=== PATIENT | female | born 1930 | race Caucasian/White ===

== ENCOUNTER 2019-01-21 10:22 | Outpatient (CLI) | payer MEDICARE ==
--- NOTE | 2019-01-21 11:37 | RAD ---
2 VIEWS LUMBAR SPINE: Date: 01/21/19 HISTORY: Follow-up fracture. COMPARISON: None. FINDINGS: Mild to moderate chronic compression fracture at L1. There are five lumbar-type vertebral bodies. The re appears to be significant degenerative disc disease at L2-L3, L3-L4, and L4-L5, with loss of disc space height and osteophyte formation. There is mild bone demineralization. There is leftward curvature of the upper lumbar spine. IMPRESSION: Compression deformity at L1. POS: RENÉ
== END 2019-01-21 10:23 | disposition home or self-care (01) ==
LOC: TBSIIMAG 10:22
PROVIDERS: ATTEND Neurological Surgery
DX: S32.019D Unspecified fracture of first lumbar vertebra, subsequent encounter for fracture with routine healing (principal)
CPT/HCPCS: 72100

== ENCOUNTER 2019-01-24 11:48 | Inpatient (IN) | payer MEDICARE ==
--- NOTE | 2019-01-24 12:21 | RAD ---
FPortable chest radiograph: 01/24/2019 COMPARISON: None HISTORY:Shortness of breath FINDINGS: Prominent dense opacity in the right base consistent with right middle lobe consolidation/c ollapse and moderate/large right pleural effusion. Probable small volume left pleural effusion. Quest ionable nodule or focal area of vascular prominence in left suprahilar region measuring 1.2 cm, not o ptimally assessed on portable imaging. No pneumothorax. IMPRESSION: Prominent pleural and parenchymal opacity in the right hemithorax suggesting prominent ri ght pleural effusion with nonspecific consolidation/collapse of right middle and right lower lobes. S mall volume left pleural effusion. Findings may be on the basis of pulmonary edema, infectious pneumo nitis, and/or aspiration. Possible 1.2 cm nodule in left suprahilar region. Recommend follow-up PA and lateral imaging of the chest following treatment to reevaluate all above f indings.
[2019-01-24 12:28] LABS: #Monocytes 0.8 thou/uL (0.11-0.59); #Neutrophils 3.7 thou/uL (1.40-6.50); %Basophils 0.8 % (0.0-1.0); %Eosinophils 0.5 % (0.0-10.0); %Monocytes 13.9 % (0.0-10.0); %Neutrophils 66.8 % (42.0-75.0); Mean Corpuscular HGB CONC 30.3 g/dL (32.0-36.0); Mean Corpuscular Hemoglobin 35.1 pg (27.0-31.0); Mean Platelet Volume 7.9 fL (7.4-10.4); Platelet Count 145 thou/uL (130-400); RBC Distribution Width 15.6 % (11.5-14.5); Red Blood Cell (RBC) Count 2.86 mill/uL (4.20-5.40); White Blood Cell (WBC) Count 5.5 thou/uL (4.8-10.8)
[2019-01-24 12:33] LABS: Actual Bicarbonate (HCO3a) 26.4 mEq/L (22-28); Analyzer IN Cardio ER; Base Excess (BEa) 1.3 mEq/L (-2.0 to +3.0); CO2 Tension 43.9 mmHg (35.0-45.0); Calcium, Ionized 1.15 mmol/L (1.12-1.30); Carboxyhemoglobin (COHb) 0.3 gm% (0.0-3.0); Hemoglobin (Hb) 10.1 g/dL (12.0-16.0); O2 Tension (PaO2) 135.2 mmHg (> 60.0)
[2019-01-24 12:35] LABS: ALV-art Gradient 9.565 (0-20); Puncture Site RB
[2019-01-24] MEDS ORDERED: Azithromycin 500 MG VIAL ONE (12:38)
[2019-01-24] MEDS ORDERED: cefTRIAXone\\ROCEPHIN 2 GM VIAL ONE (12:38)
[2019-01-24 12:50] LABS: ALT (SGPT) 27 U/L (8-55); AST (SGOT) 38 U/L (5-34); Albumin 3.8 g/dL (3.4-4.8); Alkaline Phosphatase 124 U/L (40-150); Anion Gap 11 mmol/L (10-20); BUN (Urea Nitrogen) 27 mg/dL (9.8-20.1); Bilirubin, Total 0.6 mg/dL (0.2-1.2); Calc. Creatinine Clearance 0 mL/min (70-130); Carbon Dioxide 28 mmol/L (23-31); Chloride 107 mmol/L (98-107); Estimated GFR-MDRD 30; Globulin 3.8 g/dL (2.4-3.5); Glucose 110 mg/dL (83-110); Protein, Total 7.6 g/dL (6.0-8.3); Sodium 142 mmol/L (136-145)
[2019-01-24 13:50] LABS: Bilirubin Negative (Negative); Blood, Urine Negative (Negative); Clarity CLEAR (Clear); Glucose, Urine (Dipstick) Negative (Negative); Leukocyte Negative (Negative); Nitrite Negative (Negative); Protein, Urine (Dipstick) Trace mg/dL (Neg-Trace); Urobilinogen 0.2 mg/dL (0.2-1.0); pH, Urine 5.5 (5.0-9.0)
[2019-01-24] MEDS ORDERED: Furosemide 40 MG/4 ML VIAL ONE (14:11)
[2019-01-24] MEDS ORDERED: Acetaminophen 325 MG TAB PO PRN (14:14)
[2019-01-24] MEDS ORDERED: Heparin 1,000 UNITS/ML VIAL ONE (15:47)
--- NOTE | 2019-01-24 15:53 | CT ---
FCT thorax noncontrast: 01/24/2019 HISTORY: 88-year-old female with chest pain and dyspnea. Abnormal breath sounds. COMPARISON: None FINDINGS: There is a right pleural effusion that occupies approximately 60% volume of the right hemithoracic ca vity. There is almost total atelectasis of the right lower lobe, and severe partial atelectasis of ri ght middle lobe. There is a small contralateral left pleural effusion. Left upper lobe is clear. Mild subsegmental atelectasis in the left lower lobe which is otherwise clear. Minimal groundglass densit ies in right upper lobe. Ectasia and tortuosity of thoracic aorta. Cardiomegaly with four-chamber dil ation. Small to moderate-sized pericardial effusion. No pneumothorax. IMPRESSION: 1. Large right pleural effusion. 2. Associated severe atelectasis of right lower lobe and right middle lobe. 3. Small left pleural effusion. 4. Cardiomegaly with four-chamber dilation. 5. Small to moderate-sized pericardial effusion.
[2019-01-24] MEDS ORDERED: hydrALAZINE 20 MG/ML VIAL SLOW IVP SCH (16:30)
[2019-01-24] MEDS ORDERED: Carvedilol 25 MG TAB PO SCH (17:00)
[2019-01-24] MEDS ORDERED: Furosemide 40 MG/4 ML VIAL SLOW IVP SCH (17:00)
[2019-01-24] MEDS: Carvedilol 25 MG TAB PO SCH (17:21)
[2019-01-24 17:40] LABS: INR-International Normal Ratio 1.3; PTT 33.3 SEC (22.9-36.1); Prothrombin Time 16.3 SEC (12.0-14.7)
[2019-01-24] MEDS ORDERED: Piperacillin/Tazobactam 3.375 GM VIAL ONE (17:40)
[2019-01-24] MEDS: Piperacillin/Tazobactam 3.375 GM in Sodium Chloride 0.9% 100 ML IVPB SCH ×2 (18:01→23:34)
[2019-01-24 21:39] VITALS: BMI 27.8
[2019-01-24] MEDS: Heparin 5,000 UNITS/ML VIAL SC SCH ×2 (23:36)
--- NOTE | 2019-01-25 00:24 | HP ---
CHIEF COMPLAINT: Shortness of breath. HISTORY OF PRESENT ILLNESS: The patient is an 88-year-old female who resides in an assisted living, who with past medical history of some sort of heart failure, atrial fibrillation, currently only on aspirin, GI bleed, history of L1 fracture, who presents to the hospital with shortness of breath. The patient's daughter who is at the bedside states that the patient was living alone in [place], [place]. However, she was admitted to [facility] for an L1 fracture. She was seen by Neurosurgery, no intervention was done. The patient at this time went to senior care facility and then was transferred to an assisted living in [place], [place]. The patient's family stated that last week she noticed her mother was more short of breath, however, not physically she had to talk to her over the phone. When the patient's daughter came to take her mother for lunch today, she noted that the patient was very dyspneic at rest. The patient denies any fevers or chills or any cough; however, she does state that she has been short of breath. The patient also states that she has been compliant with her medications. The patient denies any orthopnea or PND. ED COURSE: The patient was found to be hypoxic in distress. At this time, the patient was put initially on a non-rebreather, was transitioned to nasal cannula. She was given a breathing treatment and some IV Lasix. PAST MEDICAL HISTORY: 1. She has a history of anemia. 2. Atrial fibrillation, on aspirin. 3. CKD. 4. History of superficial blood clot, not on any anticoagulation. 5. L1 fracture, which is stable. The patient followed up with Neurosurgery last week and she was taken off the brace. 6. She also has a history of CHF, unknown type. ALLERGIES: SHE HAS NO KNOWN DRUG ALLERGIES. CURRENT MEDICATIONS: I have asked the family to bring in her medications. There are no records of her medications. PAST SURGICAL HISTORY: She has had a hysterectomy and a vein ablation. FAMILY HISTORY: No history of heart disease or cancer. SOCIAL HISTORY: She denies any drug use, alcohol use, or smoking history. REVIEW OF SYSTEMS: All negative except for the ones mentioned above in HPI. PHYSICAL EXAMINATION: VITAL SIGNS: Temperature of 97.9, respirations were 32, 115 heart rate. She was 86% on room air. Her blood pressure was 179/122. GENERAL: She is awake, alert, and oriented x3, does appear in minimal distress. HEENT: Normocephalic, atraumatic. No lymphadenopathy noted. Pupils are equal reactive to light. The patient does appear a little pale. CV: S1 and S2 present. Irregularly irregular. Mild tachycardia. LUNGS: She has crackles to bilateral lower lung bases. ABDOMEN: Soft and nontender. Bowel sounds present x2. EXTREMITIES: She does have +2 lower extremity edema. She does have PADMA stockings on. However, she does have edema all the way up to her thigh area. NEUROVASCULAR: No focal deficits noted. SKIN: No cuts, lesions, or bruises noted. LABORATORY RESULTS: As of the following; her WBCs of 5.5, hemoglobin of 10, hematocrit of 33.1, platelets of 145. Chemistry; sodium of 142, potassium of 4.0, BUN of 27, creatinine 1.64. Her BNP was 2026. Troponin x1 was negative. She did have an initial chest x-ray which indicated right pleural effusion. I went ahead and did a CT of her chest without contrast to better evaluate her chest x-ray, it indicated a large right pleural effusion and atelectasis to her right lower and right middle lobe. No pneumonia was noted and she also had a small to moderate pericardial effusion. ASSESSMENT AND PLAN: The patient is an 88-year-old female who presents to the hospital with complaints of shortness of breath. 1. Acute hypoxia, most likely secondary to heart failure versus pneumonia. The patient's BNP is elevated. I do not have previous records in the computer. The patient sees Cardiology in [place]. I have obtained a number. I will get records. She was supposed to see Dr. Escalante as an outpatient basis, but has not established care yet. I will start her on some Lasix on a daily basis. Also, I will add some possible calcium channel lemuel since she is in mild atrial fibrillation with rapid ventricular rate. I will also go ahead and consult Cardiology. I will get an echocardiogram on this lady. The patient denies any chest pain or chest pressure. 2. Also, I will cover her with antibiotics. We will just start her on some Zosyn. I will not add MRSA coverage. Since, I think, she does not have pneumonia. I will also check a TSH on her. 3. History of atrial fibrillation with mild rapid ventricular response. We will go ahead and add some calcium channel lemuel to better control her blood pressure and her heart rate. She is not a candidate for anticoagulation given her past bleed and she has also had peptic ulcers, so family stated that she was not a candidate for anticoagulation per her property consultant. 4. Chronic kidney disease. I do not know her baseline. We will continue to monitor. 5. Recent L1 fracture. According to the family, it is stable and she is okay to take off the brace. This is per Dr. Doe whom she saw last week. 6. Deep venous thrombosis prophylaxis. We will put the patient on sequential compression devices. Job ID: [id number]
[2019-01-25 05:31] LABS: Anion Gap 7 mmol/L (10-20); BUN (Urea Nitrogen) 27 mg/dL (9.8-20.1); Calc. Creatinine Clearance 26 mL/min (70-130); Calcium 8.4 mg/dL (7.8-10.44); Carbon Dioxide 32 mmol/L (23-31); Chloride 107 mmol/L (98-107); Estimated GFR-MDRD 33; Glucose 82 mg/dL (83-110); Potassium 3.4 mmol/L (3.5-5.1); Sodium 143 mmol/L (136-145)
[2019-01-25] MEDS: Piperacillin/Tazobactam 3.375 GM in Sodium Chloride 0.9% 100 ML IVPB SCH ×2 (05:33→11:09)
[2019-01-25 05:34] LABS: #Eosinphils 0.1 thou/uL (0.0-0.7); #Lymphocytes 0.8 thou/uL (1.20-3.40); #Monocytes 0.5 thou/uL (0.11-0.59); #Neutrophils 3.3 thou/uL (1.40-6.50); %Basophils 0.3 % (0.0-1.0); %Eosinophils 1.7 % (0.0-10.0); %Lymphocytes 16.8 % (21.0-51.0); %Monocytes 11.6 % (0.0-10.0); %Neutrophils 69.6 % (42.0-75.0); Anisocytosis SLIGHT = 6-15 cells (100X) (0-5/hpf); Hemoglobin 8.3 g/dL (12.0-16.0); Hypochromia SLIGHT = 6-15 cells (100X) (0-5/hpf); Lymphocytes 12 % (21-51); MDiff Complete? YES; Macrocytosis SLIGHT = 6-15 cells (100X) (0-5/hpf); Mean Corpuscular HGB CONC 31.9 g/dL (32.0-36.0); Mean Corpuscular Hemoglobin 36.5 pg (27.0-31.0); Mean Platelet Volume 8.3 fL (7.4-10.4); Monocytes 4 % (0-10); Neutrophil 84 % (42-75); Platelet Count 102 thou/uL (130-400); Platelet Morphology Comment Appears Decreased; RBC Distribution Width 15.1 % (11.5-14.5); Red Blood Cell (RBC) Count 2.26 mill/uL (4.20-5.40); White Blood Cell (WBC) Count 4.7 thou/uL (4.8-10.8)
[2019-01-25] MEDS: Carvedilol 25 MG TAB PO SCH (08:13)
[2019-01-25] MEDS: Heparin 5,000 UNITS/ML VIAL SC SCH ×3 (08:14→20:41)
[2019-01-25] MEDS ORDERED: Vancomycin HCl 1.25 GM in Sodium Chloride 0.9% 250 ML 250 ML IVPB SCH (09:00)
[2019-01-25] MEDS ORDERED: Furosemide 40 MG/4 ML VIAL SLOW IVP SCH (09:00)
[2019-01-25] MEDS ORDERED: Aspirin 81 mg Enteric Coated Tablet PO SCH (11:30)
[2019-01-25] MEDS ORDERED: cefTRIAXone\\ROCEPHIN 1 GM in Sodium Chloride 0.9% 100 ML IVPB SCH (12:00)
[2019-01-25] MEDS ORDERED: Azithromycin 500 MG in Sodium Chloride 0.9% 250 ML 250 ML IVPB SCH (13:00)
--- NOTE | 2019-01-25 15:44 | PDOC.PN ---
- Subjective Encounter Start Date: 01/25/19 Encounter Start Time: 10:30 Subjective: pt up in bed still appear sob, she is confused and was not aware where -: she was - Objective Resuscitation Status - Order Detail: 01/24/19 14:14 Resuscitation Status Routine Resuscitation Status: FULL: Full Resuscitation Vital Signs & Weight: Vital Signs (12 hours) Temp Pulse Resp BP Pulse Ox 01/25/19 15:10 98.8 F 63 16 113/65 98 01/25/19 11:05 97.4 F L 71 16 101/57 L 98 01/25/19 08:10 98.4 F 93 17 163/82 H 99 01/25/19 03:49 97.5 F L 86 18 147/85 H 100 Weight Weight 144 lb 3.2 oz I&O: 01/24/19 01/25/19 01/26/19 06:59 06:59 06:59 Intake Total 90 Output Total 800 Balance -710 Result Diagrams: 01/25/19 04:29 01/25/19 04:29 Phys Exam - Physical Examination Neck: no nodes, no JVD, supple, full ROM decreased breath sound to right lung, mild wheezing Cardiovascular: RRR, no significant murmur, no rub, gallop, irregular Gastrointestinal: soft, non-tender, no distention, positive bowel sounds Dx/Plan (1) SOB (shortness of breath) Code(s): R06.02 - SHORTNESS OF BREATH Status: Acute (2) Pleural effusion, right Code(s): J90 - PLEURAL EFFUSION, NOT ELSEWHERE CLASSIFIED Status: Acute (3) CHF (congestive heart failure) Code(s): I50.9 - HEART FAILURE, UNSPECIFIED Status: Acute (4) GI bleed Code(s): K92.2 - GASTROINTESTINAL HEMORRHAGE, UNSPECIFIED Status: Acute - Plan pt hh is low will edwinior, per daughter she has had low hh due to gi -: bleed. she is on asa for afib. will start her bb but decrease her dose. -: echo ordered. she most likely will need thoracentesis. will continue lasix -: for now. Daughter called left message. records requested. -: will get abg * . Review of Systems - Review of Systems Respiratory: Shortness of Breath Cardiovascular: negative: chest pain, palpitations, orthopnea, paroxysmal nocturnal dyspnea, edema, light headedness, other Gastrointestinal: negative: Nausea, Vomiting, Abdominal Pain, Diarrhea, Constipation, Melena, Hematochezia, Other - Medications/Allergies Allergies/Adverse Reactions: Allergies Allergy/AdvReac Type Severity Reaction Status Date / Time No Known Drug Allergies Allergy Unverified 01/24/19 14:25 Medications: Current Medications Acetaminophen (Tylenol) 650 mg PO Q4H PRN PRN Reason: Headache/Fever/Mild Pain (1-3) Aspirin (Ecotrin) 81 mg PO QAM [facility] Furosemide (Lasix) 40 mg SLOW IVP DAILY [facility] Last Admin: 01/25/19 08:13 Dose: 40 mg Heparin Sodium (Porcine) (Heparin) 5,000 units SC TID [facility] Last Admin: 01/25/19 15:12 Dose: 5,000 units Levothyroxine Sodium (Synthroid) 75 mcg PO DAILY [facility] Metoprolol Succinate (Toprol Xl) 25 mg PO BID [facility] Non-Formulary Medication (Ranitidine Hcl [Ranitidine Hcl]) 150 mg PO BID [facility]
[2019-01-25 16:26] LABS: Actual Bicarbonate (HCO3a) 31.2 mEq/L (22-28); Analyzer IN Cardio OR; Base Excess (BEa) 6.2 mEq/L (-2.0 to +3.0); CO2 Tension 48.1 mmHg (35.0-45.0); Calcium, Ionized 1.14 mmol/L (1.12-1.30); Carboxyhemoglobin (COHb) 0.5 gm% (0.0-3.0); Hemoglobin (Hb) 8.7 g/dL (12.0-16.0); O2 Tension (PaO2) 107.3 mmHg (> 60.0); Potassium - ABG Lab 3.41 mmol/L (3.70-5.30); Puncture Site LR; pH, Arterial 7.43 (7.35-7.45)
[2019-01-25] MEDS: Famotidine 20 MG TAB PO SCH (20:42)
--- NOTE | 2019-01-26 01:37 | CON ---
DATE OF CONSULTATION: HISTORY OF PRESENT ILLNESS: Sarina Willis is an 88-year-old white female with history of heart murmur and chronic atrial fibrillation. She denies any history of rheumatic fever or prolonged bed rest as a child, although she has been told that she had a heart murmur since childhood. She recently was admitted to [facility] in [place] with an L1 fracture. She went to retirement facility and is now at assisted living at the [facility]. Her daughter noted that she was increasingly short of breath. Ms. Willis is somewhat of a poor historian, but it does not sound as if she has had a cough or fever. She denies any chest discomfort. She does have some leg edema. In the emergency room, she was given furosemide 80 mg IV, azithromycin 500 mg IV, ceftriaxone 2 g IV, and DuoNeb. She was placed on oxygen initially, however, that has been weaned off. PAST MEDICAL HISTORY: Anemia, history of GI bleeding, chronic atrial fibrillation (apparently not an anticoagulation candidate due to her history of GI bleed), chronic kidney disease, recent L1 fracture, and history of congestive heart failure. MEDICATIONS: 1. Aspirin 81 q.a.m. 2. Premarin 0.3 q.a.m. 3. Furosemide 20 mg daily. 4. Levothyroxine 75 mcg daily. 5. Claritin 10 daily. 6. Metoprolol 25 b.i.d. 7. KCl 10 mEq q.a.m. 8. Ranitidine 150 b.i.d. ALLERGIES: NONE. OPERATIONS: Hysterectomy and bilateral great saphenous vein ablation. SOCIAL HISTORY: She does not smoke. She very rarely drinks. FAMILY HISTORY: Unremarkable. REVIEW OF SYSTEMS: A 10-point review of systems is unremarkable except as noted above. PHYSICAL EXAMINATION: VITAL SIGNS: Blood pressure 113/65, pulse of 63 and irregularly irregular. HEENT: PERRL. NECK: Supple. CHEST: Reveals occasional crackles. CARDIOVASCULAR: S1 and S2 normal without any S3 or S4. There is a 2/6 holosystolic murmur at the apex. Carotid upstrokes normal without bruits. ABDOMEN: Normal bowel sounds. EXTREMITIES: Revealed no clubbing, cyanosis, or edema. NEUROLOGIC: Grossly intact. SKIN: Warm and dry. DIAGNOSTIC STUDIES: 1. EKG revealed atrial fibrillation with rate of 115 per minute, left anterior fascicular block, nonspecific T-wave changes. 2. Echocardiogram revealed a small pericardial effusion, ejection fraction of 50 % to 55%, severely dilated left atrium, severely dilated right atrium, mitral annular calcification, moderate mitral regurgitation, aortic valvular sclerosis, and [id number] tricuspid regurgitation. LABORATORY DATA: Sodium 143, potassium 3.4, chloride 102, carbon dioxide 32, BUN 27, creatinine 1.51. BNP 2026.4. Troponin-I is normal. TSH is normal. Free T4 is normal. INR 1.3. Hemoglobin 8.3, hematocrit 25.9, white count 4700, platelets 102,000. IMAGING STUDIES: 1. Chest x-ray revealed right pleural effusion, small left pleural effusion. 2. Chest CT revealed a large right pleural effusion, atelectasis of the right lower lobe and right middle lobe, small left pleural effusion, cardiomegaly, [id number] sized pericardial effusion. IMPRESSION: 1. Acute on chronic diastolic heart failure. 2. Large right pleural effusion with very minimal left pleural effusion. If this does not diurese adequately, consideration may need to be given to a therapeutic and diagnostic thoracentesis. 3. Chronic atrial fibrillation, apparently not a candidate for anticoagulation with history of GI bleed. 4. History of GI bleed. 5. Chronic kidney disease. PLAN: The patient will continue to be diuresed. Kidney function should be watched very closely. She may benefit from thoracentesis. Job ID: [id number] [facility]
[2019-01-26] MEDS: Levothyroxine Sodium 75 MCG TAB PO SCH (05:30)
[2019-01-26] MEDS ORDERED: Furosemide 40 MG/4 ML VIAL SLOW IVP SCH (09:00)
[2019-01-26] MEDS ORDERED: Aspirin 81 mg Enteric Coated Tablet PO SCH ×2 (09:00)
[2019-01-26] MEDS: Famotidine 20 MG TAB PO SCH ×2 (10:53→20:15)
[2019-01-26] MEDS: Heparin 5,000 UNITS/ML VIAL SC SCH ×2 (10:54→16:56)
--- NOTE | 2019-01-26 10:55 | PQF ---
CLINICAL DOCUMENTATION IMPROVEMENT CLARIFICATION FORM: ICD-10 Updated PLEASE DO AN ADDENDUM TO THE PROGRESS NOTE WITH ANY DOCUMENTATION UPDATES OR ADDITIONS AND CARRY THROUGH TO DC SUMMARY. THANK YOU. DATE: 01/26/19 ATTN: DR. TURK Please exercise your independent, professional judgment in responding to the clarification form. Clinical indicators are provided on the bottom of this form for your review Please check appropriate box(s) to clarify if the following diagnosis has been ruled in or ruled out: "SEPSIS" [ ] Ruled in diagnosis [ ] Continue to treat [ ] Resolved [ x] Ruled out diagnosis [ ] Other diagnosis [ ] Unable to determine In addition, please specify: Present on Admission (POA): [ x ] Yes [ ] No [ ] Unable to determine For continuity of documentation, please document condition throughout progress notes and discharge summary. Thank You. CLINICAL INDICATORS - SIGNS / SYMPTOMS / LABS ER NOTE: "SEPSIS" PULSE 115 RR 32 WBC 4.7 RISKS: PLEURAL EFFUSION ADVANCED AGE TREATMENT: IV AZITHROMYCIN (ER) IV ROCEPHIN (ER) IV ZOSYN (01/24-01/25) BLOOD CULTURES CARDIAC MONITORING UA [employer] Winform Viewer (This form is maintained as a part of the permanent medical record) 2014 [employer]. All Rights Reserved [email or web address] [email or web address] Office: [phone] [facility]
[2019-01-26] MEDS ORDERED: Potassium Chloride 10 MEQ TAB PO SCH (11:00)
--- NOTE | 2019-01-26 11:04 | PQF ---
CLINICAL DOCUMENTATION IMPROVEMENT CLARIFICATION FORM: ICD-10 Updated PLEASE DO AN ADDENDUM TO THE PROGRESS NOTE WITH ANY DOCUMENTATION UPDATES OR ADDITIONS AND CARRY THROUGH TO DC SUMMARY. THANK YOU. DATE: 01/26/19 ATTN: DR. TURK Please exercise your independent, professional judgment in responding to the clarification form. Clinical indicators are provided on the bottom of this form for your review Please check appropriate box(s): [ ] Acute Respiratory Failure: [ ] with Hypoxia[ ] with Hypercapnia [x ] Acute On Chronic Respiratory Failure: [x ] with Hypoxia [ ] with Hypercapnia [ ] Acute Respiratory Failure due to: (etiology) [ ] Chronic Respiratory Failure only [ ] with Hypoxia [ ] with Hypercapnia [ ] Other diagnosis [ ] Unable to determine In addition, please specify: Present on Admission (POA): [x ] Yes [ ] No [ ] Unable to determine For continuity of documentation, please document condition throughout progress notes and discharge summary. Thank You. CLINICAL INDICATORS - SIGNS / SYMPTOMS / LABS H&P: "THE PATIENT WAS FOUND TO BE HYPOXIC IN DISTRESS" RR 32 PULSE 115 RISKS: PLEURAL EFFUSION HEART FAILURE AFIB TREATMENT: SUPPLEMENTAL OXYGEN / NONREBREATHER MASK TELEMETRY MONITORING CHEST XRAY IV LASIX (ER-PRESENT) MARLEE (ER) (This form is maintained as a part of the permanent medical record) 2014 [employer]. All Rights Reserved [employer] Winform Viewer [email or web address] [email or web address] Office: [phone] [facility]
--- NOTE | 2019-01-26 11:15 | PQF ---
CLINICAL DOCUMENTATION IMPROVEMENT CLARIFICATION FORM: ICD-10 Updated PLEASE DO AN ADDENDUM TO THE PROGRESS NOTE WITH ANY DOCUMENTATION UPDATES OR ADDITIONS AND CARRY THROUGH TO DC SUMMARY. THANK YOU. DATE: 01/26/19 ATTN: DR. TURK Please exercise your independent, professional judgment in responding to the clarification form. Clinical indicators are provided on the bottom of this form for your review Please check appropriate box(s) to clarify if the following diagnosis has been ruled in or ruled out: "PNEUMONIA" [ ] Ruled in diagnosis [ ] Continue to treat [ ] Resolved [x ] Ruled out diagnosis [ ] Other diagnosis [ ] Unable to determine In addition, please specify: Present on Admission (POA): [ x ] Yes [ ] No [ ] Unable to determine For continuity of documentation, please document condition throughout progress notes and discharge summary. Thank You. CLINICAL INDICATORS - SIGNS / SYMPTOMS / LABS ER NOTE: "PNEUMONIA" H&P: "ACUTE HYPOXIA, MOST LIKELY SECONDARY TO HEART FAILURE VERSUS PNEUMONIA" "ALSO, I WILL COVER HER WITH ANTIBIOTICS. WE WILL JUST START HER ON SOME ZOSYN. I WILL NOT ADD MRSA COVERAGE. SINCE, I THINK, SHE DOES NOT HAVE PNEUMONIA." CHEST XRAY: "PROMINENT DENSE OPACITY IN THE RIGHT BASE CONSISTENT WITH RIGHT MIDDLE LOBE CONSOLIDATION/COLLAPSE AND MODERATE/LARGE RIGHT PLEURAL EFFUSION." RISKS: ADVANCED AGE RESIDES IN ASSISTED LIVING TREATMENT: IV AZITHROMYCIN (ER) IV ROCEPHIN (ER) DUONEBS (ER) SUPPLEMENTAL OXYGEN BLOOD CULTURES CHEST XRAY (This form is maintained as a part of the permanent medical record) 2014 [employer] All Rights Reserved [email or web address] [email or web address] Office: [phone] [facility]
--- NOTE | 2019-01-26 18:26 | PDOC.PN ---
- Subjective Encounter Start Date: 01/26/19 Encounter Start Time: 10:00 Subjective: pt up in bed denies any sob but confused at times - Objective Resuscitation Status - Order Detail: 01/24/19 14:14 Resuscitation Status Routine Resuscitation Status: FULL: Full Resuscitation Vital Signs & Weight: Vital Signs (12 hours) Temp Pulse Resp BP Pulse Ox 01/26/19 16:50 98.2 F 97 20 141/71 H 99 01/26/19 08:00 97.5 F L 105 H 20 174/118 H 97 Weight Weight 140 lb 3.2 oz I&O: 01/25/19 01/26/19 01/27/19 06:59 06:59 06:59 Intake Total 90 720 Output Total 800 1650 Balance -710 -930 Result Diagrams: 01/25/19 04:29 01/25/19 04:29 Phys Exam - Physical Examination diminished breath sound to RLL Cardiovascular: RRR, no significant murmur, no rub, gallop, irregular Gastrointestinal: soft, non-tender, no distention, positive bowel sounds Dx/Plan (1) SOB (shortness of breath) Code(s): R06.02 - SHORTNESS OF BREATH Status: Acute (2) Pleural effusion, right Code(s): J90 - PLEURAL EFFUSION, NOT ELSEWHERE CLASSIFIED Status: Acute (3) CHF (congestive heart failure) Code(s): I50.9 - HEART FAILURE, UNSPECIFIED Status: Acute (4) GI bleed Code(s): K92.2 - GASTROINTESTINAL HEMORRHAGE, UNSPECIFIED Status: Acute - Plan will go for thoracentesis, daughter updated about his yest. -: will continue current meds. will send fluid for analysis -: inpatient rehab consult. no records received from her pcp/cardio -: asked social secretary to fax request again * . Review of Systems - Review of Systems Respiratory: Shortness of Breath Cardiovascular: negative: chest pain, palpitations, orthopnea, paroxysmal nocturnal dyspnea, edema, light headedness, other Gastrointestinal: negative: Nausea, Vomiting, Abdominal Pain, Diarrhea, Constipation, Melena, Hematochezia, Other Genitourinary: negative: Dysuria, Frequency, Incontinence, Hematuria, Retention , Other - Medications/Allergies Allergies/Adverse Reactions: Allergies Allergy/AdvReac Type Severity Reaction Status Date / Time No Known Drug Allergies Allergy Unverified 01/24/19 14:25 Medications: Current Medications Acetaminophen (Tylenol) 650 mg PO Q4H PRN PRN Reason: Headache/Fever/Mild Pain (1-3) [facility] Last Admin: 01/26/19 10:54 Dose: 81 mg Famotidine (Pepcid) 20 mg PO BID [facility] Last Admin: 01/26/19 10:53 Dose: 20 mg Heparin Sodium (Porcine) (Heparin) 5,000 units SC TID [facility] Last Admin: 01/26/19 16:56 Dose: Not Given Levothyroxine Sodium (Synthroid) 75 mcg PO 0600 [facility] Last Admin: 01/26/19 05:30 Dose: 75 mcg Metoprolol Succinate (Toprol Xl) 12.5 mg PO BID [facility] Last Admin: 01/26/19 10:53 Dose: 12.5 mg Potassium Chloride (Klor-Con 10) 10 meq PO [facility]
[2019-01-27] MEDS: Levothyroxine Sodium 75 MCG TAB PO SCH (05:43)
[2019-01-27 05:56] LABS: Anion Gap 11 mmol/L (10-20); BUN (Urea Nitrogen) 22 mg/dL (9.8-20.1); Calc. Creatinine Clearance 29 mL/min (70-130); Calcium 8.9 mg/dL (7.8-10.44); Carbon Dioxide 33 mmol/L (23-31); Chloride 102 mmol/L (98-107); Estimated GFR-MDRD 38; Glucose 79 mg/dL (83-110); Potassium 3.1 mmol/L (3.5-5.1); Sodium 143 mmol/L (136-145)
[2019-01-27] MEDS ORDERED: Potassium Chloride 20 MEQ TAB PO SCH (07:30)
[2019-01-27] MEDS ORDERED: Potassium Chloride 10 MEQ TAB PO SCH (08:00)
[2019-01-27] MEDS ORDERED: Metoprolol Tartrate 25 MG TAB PO SCH (09:00)
[2019-01-27] MEDS ORDERED: Sodium Bicarbonate 2.5 MEQ/5 ML VIAL ONE (09:13)
--- NOTE | 2019-01-27 10:19 | RAD ---
Exam: Upright inspiratory chest radiograph and upright expiratory chest radiograph HISTORY: Right-sided thoracentesis COMPARISON: 02/03/2019 FINDINGS: Small residual right-sided pleural effusion does remain. No definite pneumothorax. Stable cardiomegaly and chronic changes of the lung parenchyma. Stable scoliosis of the lumbar spine IMPRESSION: Interval decrease in size of a right-sided pleural effusion, compatible with recent right-sided thora centesis. No significant pneumothorax is appreciated. Transcribed Date/Time: 01/27/2019 10:35 AM
--- NOTE | 2019-01-27 10:22 | ULT ---
ULTRASOUND GUIDED THORACENTESIS: HISTORY: Right-sided pleural effusion. COMPARISON: None. FINDINGS: Successful ultrasound-guided thoracentesis. A total of 1300 mL of yellow color pleural fluid was aspi rated. No immediate or postprocedural complications. TECHNIQUE: Consent obtained to perform ultrasound-guided thoracentesis. Right-sided pleural effusion was identif ied. Skin was prepped and draped in a sterile fashion. 1% lidocaine, buffered with sodium bicarbonate was used for local anesthesia. Under ultrasound guidance, a 7 cm 5 [employer] catheter was advanced into the peritoneal space. A total of 1300 mL of yellow color ascites was aspirated. There were no i mmediate or postprocedural complications IMPRESSION: Successful ultrasound-guided thoracentesis. Post procedure upright inspiratory and expiratory chest r adiographs have been ordered. Transcribed Date/Time: 01/27/2019 10:37 AM
[2019-01-27] MEDS: Famotidine 20 MG TAB PO SCH (10:43)
[2019-01-27] MEDS: Metoprolol Tartrate 25 MG TAB PO SCH ×2 (10:43→21:42)
[2019-01-27 12:27] LABS: BF Color Yellow; Body Fluid Source Thoracentesis Fluid; Clarity Hazy (Clear); Tube # EDTA
[2019-01-27 12:32] LABS: Pleural Fluid, Amylase Less than 30 U/L (Not Available); Pleural Fluid, Glucose 89 mg/dL; Pleural Fluid, LDH 124 U/L (Not Available); Pleural Fluid, Protein 2.3 g/dL
[2019-01-27 12:33] LABS: RBC Background Count 0.006; WBC Background Count 0.01
[2019-01-27 12:34] LABS: WBC/NonHematic-Auto 267 /cumm
[2019-01-27 12:52] LABS: BF Segmented Neutrophils 9 %
[2019-01-27 12:53] LABS: Cell Count Non Hematic 73 %; Lymphocytes 18 %
[2019-01-27] MEDS ORDERED: Furosemide 20 MG/2 ML VIAL SLOW IVP SCH (15:15)
[2019-01-27] MEDS ORDERED: methylPREDNISolone Sod Succ 40 MG VIAL IVP SCH (19:00)
--- NOTE | 2019-01-27 19:00 | PDOC.PN ---
- Subjective Encounter Start Date: 01/27/19 Encounter Start Time: 11:30 Subjective: pt coughing, and appear in mild distress - Objective Resuscitation Status - Order Detail: 01/24/19 14:14 Resuscitation Status Routine Resuscitation Status: FULL: Full Resuscitation Vital Signs & Weight: Vital Signs (12 hours) Temp Pulse Resp BP Pulse Ox 01/27/19 15:25 98.5 F 102 H 14 164/91 H 98 01/27/19 14:06 89 18 94 L 01/27/19 12:45 96 01/27/19 11:48 97.4 F L 92 20 169/104 H 96 01/27/19 07:35 97.7 F 98 16 174/108 H 95 01/27/19 07:30 95 Weight Weight 133 lb 6.4 oz I&O: 01/26/19 01/27/19 01/28/19 06:59 06:59 06:59 Intake Total 720 180 480 Output Total 1650 400 450 Balance -930 -220 30 Result Diagrams: 01/25/19 04:29 01/27/19 05:16 Phys Exam - Physical Examination Neck: no nodes, no JVD, supple, full ROM rhonchi all over noted Cardiovascular: RRR, no significant murmur, no rub, gallop, irregular Gastrointestinal: soft, non-tender, no distention, positive bowel sounds Musculoskeletal: edema present Dx/Plan (1) SOB (shortness of breath) Code(s): R06.02 - SHORTNESS OF BREATH Status: Acute (2) Pleural effusion, right Code(s): J90 - PLEURAL EFFUSION, NOT ELSEWHERE CLASSIFIED Status: Acute (3) CHF (congestive heart failure) Code(s): I50.9 - HEART FAILURE, UNSPECIFIED Status: Acute (4) GI bleed Code(s): K92.2 - GASTROINTESTINAL HEMORRHAGE, UNSPECIFIED Status: Acute - Plan s/p 1.3L removed post thoracentesis, pt has a small hematoma -: at the procedure site. will start pt on duonebs and give a dose of steroid -: will start pt back on lasix in am. no medical records as of yet from pcp. -: pt does have moderate to severe tricuspid regurg * . Review of Systems - Review of Systems Respiratory: Cough, Shortness of Breath Cardiovascular: negative: chest pain, palpitations, orthopnea, paroxysmal nocturnal dyspnea, edema, light headedness, other Gastrointestinal: negative: Nausea, Vomiting, Abdominal Pain, Diarrhea, Constipation, Melena, Hematochezia, Other Genitourinary: negative: Dysuria, Frequency, Incontinence, Hematuria, Retention , Other - Medications/Allergies Allergies/Adverse Reactions: Allergies Allergy/AdvReac Type Severity Reaction Status Date / Time No Known Drug Allergies Allergy Unverified 01/24/19 14:25 Medications: Current Medications Acetaminophen (Tylenol) 650 mg PO Q4H PRN PRN Reason: Headache/Fever/Mild Pain (1-3) Albuterol/Ipratropium (Duoneb) 3 ml NEB [id number] PRN PRN Reason: SOB &/or Wheezing Last Admin: 01/27/19 14:06 Dose: 3 ml Aspirin (Ecotrin) 81 mg PO QAM [facility] Last Admin: 01/26/19 10:54 Dose: 81 mg Famotidine (Pepcid) 20 mg PO DAILY [facility] Furosemide (Lasix) 20 mg SLOW IVP DAILY [facility] Heparin Sodium (Porcine) (Heparin) 5,000 units SC TID [facility] Last Admin: 01/26/19 16:56 Dose: Not Given Levothyroxine Sodium (Synthroid) 75 mcg PO 0600 [facility] Last Admin: 01/27/19 05:43 Dose: 75 mcg Methylprednisolone Sodium Succinate (Solu-Medrol) 40 mg IVP NOW [facility] Stop: 01/27/19 21:00 Metoprolol Tartrate (Lopressor) 50 mg PO BID [facility] Last Admin: 01/27/19 10:43 Dose: 50 mg Potassium Chloride (Klor-Con) 20 meq PO BID[facility] Last Admin: 01/27/19 16:52 Dose: 20 meq
[2019-01-27 19:05] LABS: BF RBC Count - Manual 175 /cumm
[2019-01-27] MEDS ORDERED: Sodium Chloride 0.9% 10 ML ONE (19:20)
[2019-01-27 20:04] LABS: Albumin 3.1 g/dL (3.4-4.8); Protein, Total 6.5 g/dL (6.0-8.3)
[2019-01-28 05:44] LABS: #Lymphocytes 0.8 thou/uL (1.20-3.40); #Monocytes 0.3 thou/uL (0.11-0.59); #Neutrophils 5.7 thou/uL (1.40-6.50); %Basophils 0.1 % (0.0-1.0); %Eosinophils 0.1 % (0.0-10.0); %Lymphocytes 11.3 % (21.0-51.0); %Monocytes 3.9 % (0.0-10.0); %Neutrophils 84.7 % (42.0-75.0); Hemoglobin 9.6 g/dL (12.0-16.0); Mean Corpuscular HGB CONC 32.2 g/dL (32.0-36.0); Mean Corpuscular Hemoglobin 36.4 pg (27.0-31.0); Mean Platelet Volume 7.6 fL (7.4-10.4); Platelet Count 150 thou/uL (130-400); RBC Distribution Width 15.2 % (11.5-14.5); Red Blood Cell (RBC) Count 2.64 mill/uL (4.20-5.40); White Blood Cell (WBC) Count 6.8 thou/uL (4.8-10.8)
[2019-01-28] MEDS: Levothyroxine Sodium 75 MCG TAB PO SCH (06:00)
[2019-01-28 06:02] LABS: Anion Gap 12 mmol/L (10-20); BUN (Urea Nitrogen) 19 mg/dL (9.8-20.1); Calc. Creatinine Clearance 31 mL/min (70-130); Calcium 8.8 mg/dL (7.8-10.44); Carbon Dioxide 28 mmol/L (23-31); Chloride 103 mmol/L (98-107); Estimated GFR-MDRD 42; Glucose 114 mg/dL (83-110); Potassium 3.8 mmol/L (3.5-5.1); Sodium 139 mmol/L (136-145)
[2019-01-28] MEDS ORDERED: Metoprolol Tartrate 25 MG TAB PO SCH (09:00)
[2019-01-28] MEDS ORDERED: Famotidine 20 MG TAB PO SCH (09:00)
[2019-01-28] MEDS ORDERED: Furosemide 20 MG/2 ML VIAL SLOW IVP SCH (09:00)
[2019-01-28] MEDS ORDERED: predniSONE 20 MG TAB PO SCH (14:45)
[2019-01-28 15:38] VITALS: BP 102/66; TEMP 97.6
--- NOTE | 2019-01-29 05:51 | DIS ---
DATE OF ADMISSION: 01/24/2019 DATE OF DISCHARGE: 01/28/2019 DISCHARGE DIAGNOSES: As of the followin. Shortness of breath, most likely secondary to right-sided pleural effusion. 2. Right-sided pleural effusion. 3. Heart failure, diastolic. 4. Gastrointestinal bleed. 5. Malnutrition. HOSPITAL COURSE: Patient is an 88-year-old female, who is pretty new to our system, who presented to the hospital with shortness of breath. Patient's daughter who is at the bedside and who is very involved in her care stated that she was recently moved from [place], [place] up here and lives in an assisted living. Patient has a history of heart disease according to the daughter and also she has atrial fibrillation, however, is not on any anticoagulation due to her previous GI bleeds. She is only currently on aspirin. Initially when patient came into the hospital, she was noted to be very short of breath at rest per the daughter. Initially in the ER, she had a chest x-ray which indicated possible pneumonia versus large right-sided effusion or atelectasis. At this time, she also was found to have small to moderate-sized pericardial effusion. She underwent a CT chest, which indicated right-sided pleural effusion, severe atelectasis and also small to moderate-sized pericardial effusion. Cardiology was consulted and she underwent an echocardiogram. The echocardiogram indicated a small trivial pericardial effusion. EF was 50% to 55%. The left atrium was severely dilated. [id number] tricuspid regurgitation. This was updated to the patient's daughter. Patient also underwent a thoracentesis on 01/27/2019, removed at 1.3 L of fluid. Per Light's criteria, her fluid was transudative. Cytology did not show any malignant cells. Patient was put on Lasix before and after. Also post-thoracentesis, she did have some vasospasms. She had some coughing and some rhonchi. At this time, she was put on low-dose steroid and also breathing treatment. She will be discharged to inpatient rehab. I have updated the daughter that patient will benefit from inpatient rehab given her multiple medical issues. While she was in the hospital, I did try getting records from Dr. Ojeda, who is a research project coordinator in [place], [place] and also Dr. Mcdonald, who is the primary care doctor. However, we did not get any records as of yet. The patient's daughter did get further records from [facility] in the [place] and also [facility] in [place], [place]. Patient today will be discharged to an inpatient rehab and I believe she will benefit from this. Also, she has not been eating very much and this is something that her daughter also has been noticing, recommended just helping her to breathe better will probably improve her appetite. However, we will continue to follow along and if she is unable to take enough calories, may be starting her on some dietary supplements would not be a bad idea. DISCHARGE MEDICATIONS: Will be; 1. Ranitidine 150 mg b.i.d. 2. Potassium 10 mEq daily. 3. Furosemide 40 mg daily. 4. DuoNeb breathing treatments q.6 hours p.r.n. 5. Metoprolol, which was titrated up by Cardiology to 75 mg b.i.d. 6. Synthroid 75 mcg daily. 7. Aspirin 81 mg daily. 8. Also, I will give her steroids only three days. She had one day which was 01/27/2019. I will give her 20 today and then 20 tomorrow. PHYSICAL EXAMINATION: VITAL SIGNS: Temperature 98.7, 88, 100% on room air, and blood pressure is 132/67. GENERAL: She is awake, alert, and oriented x3. Does not appear in distress. CV: S1, S2 present. No murmurs, rubs, or gallops. LUNGS: Diminished breath sounds on the right lower lung, however, much improved from previous examination. No wheezing or rhonchi noted. ABDOMEN: Soft and nontender. Bowel sounds are present x2. EXTREMITIES: No edema. Pedal pulses are present x2. Again, patient likes to have compression stockings on. This is per patient's daughter and helps with the fluid in her legs, especially when she is ambulating. Job ID: [id number]
[2019-01-30 12:10] LABS: Fungus Stain Final report (.)
== END 2019-01-28 19:13 | DRG 291 ==
LOC: ERS 11:48 → ERHOLD 13:53 → 2NO 20:52
PROVIDERS: ADMIT Internal Medicine; ATTEND Internal Medicine
PROC: 0W993ZZ Drainage of Right Pleural Cavity, Percutaneous Approach (ICD-10-PCS; principal; 2019-01-27)
DX: I13.0 Hypertensive heart and chronic kidney disease with heart failure and stage 1 through stage 4 chronic kidney disease, or unspecified chronic kidney disease (principal); I50.33 Acute on chronic diastolic (congestive) heart failure; J96.01 Acute respiratory failure with hypoxia; J91.8 Pleural effusion in other conditions classified elsewhere; N18.9 Chronic kidney disease, unspecified; I48.2 Chronic atrial fibrillation; D63.1 Anemia in chronic kidney disease; I07.1 Rheumatic tricuspid insufficiency; Z79.82 Long term (current) use of aspirin; Z90.710 Acquired absence of both cervix and uterus; Z79.899 Other long term (current) drug therapy
CPT/HCPCS: 36415; 71045; 71250; 72100; 76942; 80048; 80053; 81003; 82040; 82042; 82150; 82805; 82945; 83605; 83615; 83880; 84155; 84157; 84443; 84484; 85025; 85060; 85610; 85730; 87040; 87070; 87086; 87116; 87205; 87206; 87804; 88112; 88305; 89051; 93005; 93306; 93798; 94640; 96365; 96375; J0456; J0696; J1644; J1940; J2543; J2920; J7050; J7620

== ENCOUNTER 2019-02-24 14:42 | Outpatient (CLI) | payer MEDICARE ==
--- NOTE | 2019-02-24 15:43 | RAD ---
TWO VIEWS OF THE LUMBAR SPINE 02/24/19 COMPARISON: 01/21/19 HISTORY: Fall, trauma, pain, re-evaluate fracture. FINDINGS: There is an anterior wedge compression fracture at the L1 level with approximately 40% loss of verteb ral body height anteriorly. When compared to the prior examination, the degree of vertebral body heig ht loss appears stable. No additional/new fracture noted within the lumbar spine. There is levoscolio sis centered at the thoracolumbar junction, stable. No significant anterolisthesis or retrolisthesis. Mild multilevel disc space narrowing and anterior osteophyte formation noted within the imaged spine . There is mild lower lumbar spine facet hypertrophy. IMPRESSION: Stable anterior wedge compression fracture of the L1 vertebral body as above. POS: TPC
== END 2019-02-24 14:43 | disposition home or self-care (01) ==
LOC: TBSIIMAG 14:42
PROVIDERS: ATTEND Neurological Surgery
DX: S32.010D Wedge compression fracture of first lumbar vertebra, subsequent encounter for fracture with routine healing (principal)
CPT/HCPCS: 72100

== ENCOUNTER 2019-04-01 19:39 | Inpatient (IN) | payer MEDICARE ==
--- NOTE | 2019-04-01 20:21 | RAD ---
EXAM: Single view of the chest HISTORY: Sepsis; fall at home COMPARISON: 02/17/2019; chest CT 01/24/2019 FINDINGS: Single view of the chest shows an enlarged but stable cardiomediastinal silhouette. There is a moderate right subpulmonic effusion with right basilar atelectasis. Scoliosis and degenerative changes are seen in the spine. IMPRESSION: Moderate right pleural effusion with adjacent atelectasis
[2019-04-01] MEDS ORDERED: Acetaminophen 500 MG TAB ONE (20:35)
[2019-04-01 20:54] LABS: #Lymphocytes 0.7 thou/uL (1.20-3.40); #Neutrophils 6.5 thou/uL (1.40-6.50); %Basophils 0.1 % (0.0-1.0); %Eosinophils 0.1 % (0.0-10.0); %Lymphocytes 8.7 % (21.0-51.0); %Monocytes 11.7 % (0.0-10.0); %Neutrophils 79.4 % (42.0-75.0); ALT (SGPT) 25 U/L (8-55); AST (SGOT) 73 U/L (5-34); Albumin 3.5 g/dL (3.4-4.8); Alkaline Phosphatase 106 U/L (40-150); Anion Gap 15 mmol/L (10-20); BUN (Urea Nitrogen) 41 mg/dL (9.8-20.1); Bilirubin, Total 0.6 mg/dL (0.2-1.2); Calc. Creatinine Clearance 0 mL/min (70-130); Calcium 8.9 mg/dL (7.8-10.44); Carbon Dioxide 25 mmol/L (23-31); Chloride 103 mmol/L (98-107); Estimated GFR-MDRD 23; Globulin 4.7 g/dL (2.4-3.5); Glucose 106 mg/dL (83-110); Hemoglobin 12.1 g/dL (12.0-16.0); MDiff Complete? YES; Macrocytosis SLIGHT = 6-15 cells (100X) (0-5/hpf); Mean Corpuscular HGB CONC 30.6 g/dL (32.0-36.0); Mean Corpuscular Hemoglobin 35.2 pg (27.0-31.0); Mean Platelet Volume 7.3 fL (7.4-10.4); Platelet Count 158 thou/uL (130-400); Potassium 3.3 mmol/L (3.5-5.1); Protein, Total 8.2 g/dL (6.0-8.3); RBC Distribution Width 15.2 % (11.5-14.5); Red Blood Cell (RBC) Count 3.45 mill/uL (4.20-5.40); Sodium 140 mmol/L (136-145); White Blood Cell (WBC) Count 8.1 thou/uL (4.8-10.8)
[2019-04-01 21:11] LABS: CKMB 1.2 ng/mL (0-6.6)
--- NOTE | 2019-04-01 21:22 | CT ---
EXAM: CT brain without contrast HISTORY: Altered mental status and fall COMPARISON: None TECHNIQUE: Multiple contiguous axial images were obtained and a CT of the brain without contrast. FINDINGS: There are scattered hypodensities in the subcortical and periventricular white matter consi stent with small vessel ischemic disease. There is no evidence of hydrocephalus, intracranial hemorrhage, or extra-axial fluid collection. The calvarium and overlying soft tissues are unremarkable. The visualized paranasal sinuses and masto id air cells are well aerated. IMPRESSION: No evidence of acute intracranial abnormality
--- NOTE | 2019-04-01 21:26 | CT ---
EXAM: CT of the cervical spine without contrast HISTORY: Fall from wheelchair with neck pain COMPARISON: None TECHNIQUE: Multiple contiguous axial images were obtained in a CT of the cervical spine without contr ast. Sagittal and coronal reformats were performed. FINDINGS: Severe degenerative changes are seen throughout the cervical spine with intervertebral disc space narrowing and osteophyte formation. The vertebral bodies demonstrate normal height and alignment without fracture or subluxation. No prevertebral soft tissue swelling is seen. The posterior facets are well aligned. Normal alignment of the skull base with the cervical spine is seen. The cervical soft tissues are unremarkable. A pleural effusion is seen in the right apex. IMPRESSION: 1. No evidence of acute osseous abnormality of the cervical spine. 2. Right pleural effusion
--- NOTE | 2019-04-01 21:34 | CT ---
EXAM: 1. CT of the chest without contrast 2. CT of the abdomen and pelvis without contrast 3. Limited CT of the thoracic and lumbosacral spine without contrast HISTORY: Fall out of a wheelchair with chest pain, abdominal pain, and back pain. COMPARISON: None TECHNIQUE: 1. Multiple contiguous axial images were obtained in a CT the chest without contrast. Coronal reforma ts were performed. 2. Multiple contiguous axial images were obtained in a CT of the abdomen and pelvis without contrast. Coronal reformats were performed. 3. Limited CTs of the thoracic and lumbosacral spines were performed without contrast. Sagittal and c oronal re-reformats were created based off images obtained in the chest, abdomen, and pelvic CTs. FINDINGS: CT CHEST: Mediastinum: Global cardiomegaly. No hilar or mediastinal lymphadenopathy appreciated on this limited noncontrast examination. There may be a small pericardial effusion. Lungs: Consolidation is seen in the right middle lobe and left lower lobe. Pleural space: Moderate right pleural effusion with adjacent atelectasis Thoracic bones: No evidence of acute fracture. Thoracic chest wall: Unremarkable. CT ABDOMEN/PELVIS: Evaluation of the solid organs is limited without IV contrast. Peritoneum: No free air or free fluid, or stranding changes. Liver: Unremarkable. Gallbladder: Unremarkable. Adrenal glands: Unremarkable. Kidneys: Hyperdensities emanating from both kidneys measuring up to 2.0 cm in size may represent hype rdense cysts Spleen: Unremarkable. Pancreas: Unremarkable. Bowel: Scattered diverticula in the colon. The small bowel is unremarkable. Retroperitoneum: No lymphadenopathy. Atherosclerotic calcification is in the aorta. Pelvis: No focal mass or abnormality. Status post hysterectomy. Pelvic bones: No acute fracture identified. LIMITED CT OF THE THORACIC AND LUMBOSACRAL SPINE: Compression deformity of L1 vertebral body with approximately 25% height loss is seen. Degenerative c hanges are seen throughout the spine. No other fracture or subluxation is seen. No prevertebral soft tissue swelling are present. IMPRESSION: 1. No evidence of acute traumatic intrathoracic abnormality 2. No evidence of acute intra-abdominal/pelvic abnormality 3. L1 compression fracture of uncertain age. 4. Multifocal pneumonia 5. Right pleural effusion 6. Bilateral hyperdense renal cysts 7. Diverticulosis
[2019-04-01] MEDS ORDERED: Piperacillin/Tazobactam 3.375 GM VIAL ONE (22:28)
[2019-04-01 22:32] LABS: Bilirubin Negative (Negative); Blood, Urine Large (Negative); Clarity TURBID (Clear); Glucose, Urine (Dipstick) Negative (Negative); Leukocyte Negative (Negative); Nitrite Negative (Negative); Protein, Urine (Dipstick) 100 mg/dL (Neg-Trace); Specific Gravity, Urine 1.015 (1.002-1.036); Urobilinogen 0.2 mg/dL (0.2-1.0); pH, Urine 5.5 (5.0-9.0)
[2019-04-01 22:35] LABS: Hyaline Casts/LPF >50 HYALINE CAST LPF (0-3 Hyaline); Pathc Cast-AUWi Flag 16.59 (0-2.49); Yeast-AUWi Flag 47.2 (0-25.0)
[2019-04-01 22:49] LABS: Bacteria/HPF 2+ HPF (None Seen)
[2019-04-01 22:51] LABS: Crystals/HPF 2+ AMORPH URATES HPF (Negative)
[2019-04-01] MEDS ORDERED: Aspirin Chewable 81 MG TAB ONE (23:17)
[2019-04-02 00:03] LABS: CKMB 1.1 ng/mL (0-6.6)
[2019-04-02] MEDS ORDERED: Ondansetron PF 4 MG/2 ML Vial IVP PRN ×2 (01:05→12:55)
[2019-04-02] MEDS ORDERED: Sodium Chloride 0.9% 1,000 ML IV SCH (01:05)
[2019-04-02] MEDS ORDERED: Ondansetron ODT 4 MG TAB SL PRN (01:05)
[2019-04-02] MEDS ORDERED: Acetaminophen 325 MG TAB PO PRN (01:05)
[2019-04-02] MEDS: Metoprolol Tartrate 50 MG TAB PO SCH ×2 (09:36→20:47)
[2019-04-02] MEDS ORDERED: Diltiazem HCl 125 MG, Admixture Fee 1 EACH in Sodium Chloride 0.9% 100 ML IVPB SCH (12:30)
[2019-04-02] MEDS ORDERED: hydrALAZINE 20 MG/ML VIAL SLOW IVP PRN (12:55)
[2019-04-02] MEDS ORDERED: Acetaminophen 500 MG TAB PO PRN (12:55)
[2019-04-02] MEDS ORDERED: Benzonatate 100 MG CAP PO PRN (12:55)
[2019-04-02] MEDS ORDERED: Ondansetron ODT 4 MG TAB PO PRN (12:55)
[2019-04-02] MEDS: Diltiazem HCl 125 MG, Admixture Fee 1 EACH in Sodium Chloride 0.9% 100 ML IVPB SCH (12:59)
[2019-04-02] MEDS ORDERED: Potassium Chloride 10 MEQ TAB PO SCH (13:00)
[2019-04-02] MEDS ORDERED: Melatonin 3 MG TAB PO PRN (13:00)
[2019-04-02] MEDS ORDERED: Bacteriostatic Water 30 ML VIAL FS PRN (13:05)
[2019-04-02] MEDS: cefTRIAXone\\ROCEPHIN 2 GM in Sodium Chloride 0.9% 100 ML IVPB SCH (13:57)
[2019-04-02] MEDS: methylPREDNISolone Sod Succ 40 MG VIAL IVP SCH ×2 (13:57→17:38)
[2019-04-02] MEDS: Azithromycin 500 MG in Sodium Chloride 0.9% 250 ML 250 ML IVPB SCH (15:31)
--- NOTE | 2019-04-02 20:07 | HP ---
PRIMARY CARE PROVIDER: Maikol Morrissey MD CHIEF COMPLAINT: Fall and weakness. HISTORY OF PRESENT ILLNESS: This is an 89-year-old female, who presents to [facility] Emergency Department after apparently sustaining a fall at her assisted living residence. The patient was found in the bathroom by assisted living staff and the patient had complained of general weakness. The patient states she usually is ambulatory with a rolling walker or wheelchair and apparently sustained a fall in August 2018. The patient states she has had general decline over the last several months and needs assistance with most activities of daily living. The patient underwent general evaluation in the emergency room including telemetry and EKG evaluation showing atrial fibrillation with rapid ventricular response. The patient received aspirin 325 mg in addition to vancomycin, Zosyn, and 2 L of intravenous normal saline. The patient was noted with decreased heart rate after treatment with above medications, however, was transferred to the telemetry unit for further evaluation. Upon arrival to the telemetry unit, the patient was noted in atrial fibrillation with heart rates in the 150s with associated respiratory distress and hypoxia. Chest imaging in the emergency room showed bilateral pleural effusions, right greater than left, with concern for developing pneumonia. The patient was recently admitted to [facility] in January 2019 for similar presentation and was noted with the pleural effusions at that time. PAST MEDICAL HISTORY: 1. Diastolic dysfunction with preserved ejection fraction of 50% to 55%. 2. Pneumonia with effusion in January 2019. 3. History of gastrointestinal bleed. 4. Chronic atrial fibrillation with variable rate control. No anticoagulation due to history of peptic ulcers and GI bleed. 5. Deconditioning. 6. History of falls. 7. L1 compression fracture. 8. Chronic kidney disease, stage 3 to 4. PAST SURGICAL HISTORY: 1. Status post hysterectomy. 2. Status post varicose vein surgery. CURRENT MEDICATIONS: 1. Enteric-coated aspirin 81 mg p.o. daily. 2. Premarin 1.25 mg p.o. daily. 3. Levothyroxine 75 mcg p.o. daily. 4. Claritin 10 mg p.o. at bedtime. 5. Melatonin 3 mg p.o. at bedtime p.r.n. 6. Klor-Con 10 mEq p.o. q.48 hours. 7. Ranitidine 150 mg p.o. b.i.d. 8. Lasix 40 mg p.o. daily. 9. DuoNeb 3 mL nebulized q.6 hours p.r.n. 10. Lopressor 75 mg p.o. b.i.d. ALLERGIES: NO KNOWN DRUG ALLERGIES. FAMILY HISTORY: No inheritable diseases per patient report. SOCIAL HISTORY: No current alcohol, tobacco, or illicit drug use. Ambulatory with a rolling walker or wheelchair. History of falls. Resides at the [place] at [facility]. Daughter is surrogate medical decision maker. REVIEW OF SYSTEMS: CONSTITUTIONAL: Negative for weight loss or gain, ability to conduct usual activities. SKIN: Negative for rash, itching. EYES: Negative for double vision, pain. ENT/MOUTH: Negative for nose bleeding, neck stiffness, pain, tenderness. CARDIOVASCULAR: Negative for palpitations, dyspnea on exertion, orthopnea. RESPIRATORY: Negative for shortness of breath, wheezing, cough, hemoptysis, fever or night sweats. GASTROINTESTINAL: Negative for poor appetite, abdominal pain, heartburn, nausea, vomiting, constipation, or diarrhea. GENITOURINARY: Negative for urgency, frequency, dysuria, nocturia. MUSCULOSKELETAL: Negative for pain, swelling. NEUROLOGIC/PSYCHIATRIC: Negative for anxiety, depression. ALLERGY/IMMUNOLOGIC: Negative for skin rash, bleeding tendency. Otherwise negative except as stated per HPI. PHYSICAL EXAMINATION: VITAL SIGNS: On admission, blood pressure 161/96, pulse 125, respiratory rate is 18, temperature 97.8 degrees Fahrenheit, O2 saturation is 96% on 4 L/minute by nasal cannula. GENERAL APPEARANCE: This is an 89-year-old female, alert, responsive, in [id number] respiratory distress. HEENT: Pupils are equal, round, reactive to light and accommodation. Extraocular muscles are intact. No scleral icterus. No conjunctival injection. Nares patent. OP is clear of any mask in place. NECK: Supple. No cervical adenopathy. No thyromegaly. No carotid bruits. No JVD appreciated. Accessory muscle use noted in the anterior cervical region. No palpable mass. No meningeal signs noted. CHEST: Diminished breath sounds bilaterally with coarse breath sounds noted bilaterally. CARDIOVASCULAR: S1 and S2 with tachycardia. Irregular rate and rhythm noted. No murmur appreciated. ABDOMEN: Rounded, soft, nontender, and nondistended. Bowel sounds are positive in all 4 quadrants. There is no hepatosplenomegaly. No abdominal bruits. No rebound or guarding appreciated. EXTREMITIES: Warm and dry with fair turgor. Minimal edema to the mid theodore bilaterally. Pulses palpable distally at the dorsalis pedis, posterior tibial, and popliteal arteries bilaterally. Capillary refill less than 2 seconds. NEUROLOGIC: Cranial nerves 2 through 12 are grossly intact. No focal or lateralizing signs appreciated. PERTINENT LABORATORY DATA AND X-RAY FINDINGS: Sodium 140, potassium 3.3, chloride 103, CO2 of 25, BUN 41, creatinine 2.05, estimated GFR of 23, glucose 106, lactic acid level 1.5, calcium 8.9, AST 73, ALT of 25, alkaline phosphatase 106. Troponin I ranged between 0.042 to 0.066. CBC showed a white blood cell count of 8.1, hemoglobin 12, hematocrit 40, MCV 115, platelet count 158 with 79% neutrophils. Urinalysis; positive protein, large blood, 4 to 6 wbc's per high-power field, 7 to 10 squamous epithelial cells. Influenza A and B antigen dated 04/01/2019 negative. Blood cultures x2 dated 04/01/2019 negative. Urine culture dated 04/01/2019 showed no growth at 12 hours. Portable chest x-ray dated 04/01/2019 showed moderate right pleural effusion with associated atelectasis. CT of the chest, abdomen and pelvis dated 04/01/2019 showed L1 compression deformity of uncertain age. Multifocal pneumonia. Right pleural effusion. Diverticulosis without diverticulitis. CT of the brain without contrast dated 04/01/2019 showed no acute intracranial process. EKG dated 04/01/2019 by my interpretation shows atrial fibrillation with rapid ventricular response, heart rates in the 130s. Normal R-wave progression noted in the precordial leads. Left axis deviation. Incomplete right bundle-branch block pattern. ASSESSMENT AND PLAN: 1. Acute hypoxic respiratory failure. Suspect secondary to bacterial pneumonia. We will continue oxygen supplementation and maintain O2 saturation greater than or equal to 90%. Add DuoNebs q.4 hours scheduled. Solu-Medrol 40 mg IV q.6 hours. 2. Atrial fibrillation with rapid ventricular response. Initiate Cardizem 20 mg IV bolus x1 followed by 5 mg/hour. We will continue to titrate Cardizem to optimal rate control. Resume metoprolol 75 mg p.o. b.i.d. No anticoagulation due to history of gastrointestinal bleeding. Continue aspirin 81 mg daily. Consider Cardiology consultation if rate control strategy unsuccessful. 3. Bacterial pneumonia. Suspected given CT imaging findings. Continue Rocephin 2 g IV q.24 hours with additional Zithromax 500 mg IV daily. DuoNeb q.4 hours scheduled. Solu-Medrol 40 mg IV q.6 hours. Update pneumonia vaccination prior to discharge. 4. Acute on chronic kidney disease. Avoid nephrotoxic agents and limit contrast exposure. Serial creatinine monitoring. 5. Hypokalemia. Potassium chloride 40 mEq b.i.d. with repeat potassium level in the a.m. 6. Demand ischemia of the myocardium. Suspect secondary to atrial fibrillation with rapid ventricular response. See above for management. 7. Fall. General fall risk precautions. Physical Therapy evaluation for functional assessment. 8. Hypertension. Labile currently. Resume home metoprolol 75 mg b.i.d. and monitor response. 9. Prophylaxis. Sequential compression devices while in bed. Pepcid 20 mg p.o. b.i.d. Physical Therapy evaluation for functional assessment. 10. Code status is full. Surrogate medical decision maker is the patient's daughter. Job ID: [id number]
[2019-04-02] MEDS: Famotidine 20 MG TAB PO SCH (20:48)
[2019-04-02] MEDS: Loratadine 10 MG TAB PO SCH (20:48)
[2019-04-03] MEDS: methylPREDNISolone Sod Succ 40 MG VIAL IVP SCH ×4 (00:06→20:02)
[2019-04-03] MEDS: Levothyroxine Sodium 75 MCG TAB PO SCH (05:19)
[2019-04-03 07:51] LABS: Anion Gap 14 mmol/L (10-20); BUN (Urea Nitrogen) 36 mg/dL (9.8-20.1); Calc. Creatinine Clearance 21 mL/min (70-130); Calcium 8.6 mg/dL (7.8-10.44); Carbon Dioxide 22 mmol/L (23-31); Chloride 113 mmol/L (98-107); Estimated GFR-MDRD 30; Glucose 180 mg/dL (83-110); Potassium 3.2 mmol/L (3.5-5.1); Sodium 146 mmol/L (136-145)
[2019-04-03 07:54] LABS: Hemoglobin 10.9 g/dL (12.0-16.0); Mean Corpuscular HGB CONC 30.9 g/dL (32.0-36.0); Mean Corpuscular Hemoglobin 35.9 pg (27.0-31.0); Mean Platelet Volume 7.7 fL (7.4-10.4); Platelet Count 150 thou/uL (130-400); RBC Distribution Width 15.3 % (11.5-14.5); Red Blood Cell (RBC) Count 3.03 mill/uL (4.20-5.40)
[2019-04-03] MEDS: Metoprolol Tartrate 50 MG TAB PO SCH ×2 (08:03→20:02)
[2019-04-03] MEDS: Aspirin 81 mg Enteric Coated Tablet PO SCH (08:03)
[2019-04-03] MEDS: Furosemide 40 MG TAB PO SCH (08:04)
[2019-04-03 08:58] LABS: Hypochromia SLIGHT = 6-15 cells (100X) (0-5/hpf); Lymphocytes 9 % (21-51); MDiff Complete? YES; Monocytes 6 % (0-10); Neutrophil 85 % (42-75); Platelet Morphology Comment Appears Adequate; Polychromasia SLIGHT = 2-3 cells (100X) (0-2/hpf)
--- NOTE | 2019-04-03 10:28 | EKG ---
Test Reason : Blood Pressure : / mmHG Vent. Rate : 134 BPM Atrial Rate : 141 BPM P-R Int : 000 ms QRS Dur : 092 ms QT Int : 308 ms P-R-T Axes : 000 -51 127 degrees QTc Int : 459 ms Atrial fibrillation with rapid ventricular response Incomplete right bundle branch block Left anterior fascicular block Confirmed by RUBÉN SNIDER ([id number]), editor magazine JORDAN MCPHERSON ([id number]) on 04/03/2019 10:28:21 AM Referred By: DAYDAY Confirmed By:RUBÉN SNIDER
--- NOTE | 2019-04-03 11:08 | PDOC.PN ---
- Subjective Encounter Start Date: 04/03/19 Encounter Start Time: 11:06 Patient seen and examined, states she feels ok, still having some difficulty breathing, no other issues, all questions answered, no family at bedside. - Objective Resuscitation Status - Order Detail: 04/02/19 12:47 Resuscitation Status Routine Resuscitation Status: FULL: Full Resuscitation Vital Signs & Weight: Vital Signs (12 hours) Temp Pulse Resp BP Pulse Ox 04/03/19 10:20 81 24 H 04/03/19 06:58 97.7 F 108 H 18 119/76 100 04/03/19 06:51 100 04/03/19 06:50 108 H 16 04/03/19 04:00 97.5 F L 82 18 121/69 100 04/03/19 03:20 100 04/02/19 23:54 97.7 F 80 18 133/78 100 04/02/19 23:09 95 Weight Admit Weight 123 lb 8 oz Weight 123 lb 8 oz I&O: 04/02/19 04/03/19 04/04/19 06:59 06:59 06:59 Intake Total 570 Balance 570 Result Diagrams: 04/03/19 06:56 04/03/19 06:56 Phys Exam - Physical Examination Constitutional: NAD HEENT: PERRLA, moist MMs, sclera anicteric Neck: no nodes, no JVD, supple Respiratory: wheezing present no respiratory distress Cardiovascular: no rub, irregular Gastrointestinal: soft, non-tender, no distention, positive bowel sounds Musculoskeletal: pulses present, edema present (trace) Dx/Plan (1) CHF (congestive heart failure) Code(s): I50.9 - HEART FAILURE, UNSPECIFIED Status: Acute (2) Pleural effusion, right Code(s): J90 - PLEURAL EFFUSION, NOT ELSEWHERE CLASSIFIED Status: Acute (3) SOB (shortness of breath) Code(s): R06.02 - SHORTNESS OF BREATH Status: Acute - Plan * cont diuretics * O2 PRN * adjust medications * labs in AM * cont cardizem drip for now, will adjust in AM * PT
[2019-04-03] MEDS: cefTRIAXone\\ROCEPHIN 2 GM in Sodium Chloride 0.9% 100 ML IVPB SCH (13:23)
[2019-04-03] MEDS: Azithromycin 500 MG in Sodium Chloride 0.9% 250 ML 250 ML IVPB SCH (14:07)
[2019-04-03] MEDS: Diltiazem HCl 125 MG, Admixture Fee 1 EACH in Sodium Chloride 0.9% 100 ML IVPB SCH (17:09)
[2019-04-03] MEDS: Famotidine 20 MG TAB PO SCH (20:02)
[2019-04-03] MEDS: Loratadine 10 MG TAB PO SCH (20:02)
[2019-04-04 04:41] LABS: #Lymphocytes 0.6 thou/uL (1.20-3.40); #Monocytes 0.9 thou/uL (0.11-0.59); #Neutrophils 11.2 thou/uL (1.40-6.50); %Basophils 0.1 % (0.0-1.0); %Eosinophils 0.1 % (0.0-10.0); %Monocytes 7.2 % (0.0-10.0); %Neutrophils 87.7 % (42.0-75.0); Hemoglobin 10.2 g/dL (12.0-16.0); Mean Corpuscular HGB CONC 31.3 g/dL (32.0-36.0); Mean Corpuscular Hemoglobin 35.7 pg (27.0-31.0); Mean Platelet Volume 7.7 fL (7.4-10.4); Platelet Count 157 thou/uL (130-400); RBC Distribution Width 15.3 % (11.5-14.5); Red Blood Cell (RBC) Count 2.84 mill/uL (4.20-5.40); White Blood Cell (WBC) Count 12.8 thou/uL (4.8-10.8)
[2019-04-04 05:00] LABS: Anion Gap 12 mmol/L (10-20); BUN (Urea Nitrogen) 41 mg/dL (9.8-20.1); Calc. Creatinine Clearance 20 mL/min (70-130); Calcium 9.1 mg/dL (7.8-10.44); Carbon Dioxide 24 mmol/L (23-31); Chloride 110 mmol/L (98-107); Estimated GFR-MDRD 28; Glucose 159 mg/dL (83-110); Sodium 143 mmol/L (136-145)
[2019-04-04 05:02] LABS: Potassium 2.8 mmol/L (3.5-5.1)
[2019-04-04] MEDS ORDERED: Potassium Chloride 20 MEQ TAB PO SCH (05:30)
[2019-04-04] MEDS: Levothyroxine Sodium 75 MCG TAB PO SCH (05:56)
[2019-04-04] MEDS: Aspirin 81 mg Enteric Coated Tablet PO SCH (08:07)
[2019-04-04] MEDS: Furosemide 40 MG TAB PO SCH (08:07)
[2019-04-04] MEDS: methylPREDNISolone Sod Succ 40 MG VIAL IVP SCH ×2 (08:07→22:43)
[2019-04-04] MEDS: Potassium Chloride 20 MEQ TAB PO SCH ×3 (08:07→16:56)
[2019-04-04] MEDS: Metoprolol Tartrate 50 MG TAB PO SCH (08:07)
--- NOTE | 2019-04-04 11:13 | PDOC.PN ---
- Subjective Encounter Start Date: 04/04/19 Encounter Start Time: 11:10 Patient seen and examined, no new issues, all questions answered. - Objective Resuscitation Status - Order Detail: 04/02/19 12:47 Resuscitation Status Routine Resuscitation Status: FULL: Full Resuscitation Vital Signs & Weight: Vital Signs (12 hours) Temp Pulse Pulse Pulse Resp BP BP 04/04/19 10:27 91 16 04/04/19 09:33 104 H 91 189/96 H 149/84 H 04/04/19 08:05 97.9 F 104 H 18 04/04/19 07:12 108 H 18 04/04/19 03:02 97.8 F 103 H 20 04/04/19 02:59 04/03/19 23:55 109 H 04/03/19 23:12 BP Pulse Ox 04/04/19 10:27 04/04/19 09:33 04/04/19 08:05 141/78 H 93 L 04/04/19 07:12 04/04/19 03:02 135/81 98 04/04/19 02:59 99 04/03/19 23:55 123/66 04/03/19 23:12 99 Weight Admit Weight 123 lb 8 oz Weight 123 lb 8 oz Result Diagrams: 04/04/19 04:08 04/04/19 04:08 Phys Exam - Physical Examination Constitutional: NAD HEENT: PERRLA, moist MMs, sclera anicteric Neck: no nodes, no JVD, supple Respiratory: no wheezing, no rales, no rhonchi Cardiovascular: RRR, no significant murmur, no rub Gastrointestinal: soft, non-tender, no distention Musculoskeletal: pulses present, edema present (trace) Dx/Plan (1) CHF (congestive heart failure) Code(s): I50.9 - HEART FAILURE, UNSPECIFIED Status: Acute (2) Pleural effusion, right Code(s): J90 - PLEURAL EFFUSION, NOT ELSEWHERE CLASSIFIED Status: Acute (3) SOB (shortness of breath) Code(s): R06.02 - SHORTNESS OF BREATH Status: Acute - Plan * DC cardizem, increase metoprolol to 100mg po BID with hold parameters * consult renal for electrolyte issues * potassium replaced will repeat labs in AM * case and plan d/w patient at length, she understood and agreed with this plan.
[2019-04-04] MEDS: cefTRIAXone\\ROCEPHIN 2 GM in Sodium Chloride 0.9% 100 ML IVPB SCH ×2 (14:28→14:34)
[2019-04-04] MEDS: Azithromycin 500 MG in Sodium Chloride 0.9% 250 ML 250 ML IVPB SCH (15:10)
[2019-04-04 17:58] LABS: Anion Gap 17 mmol/L (10-20); BUN (Urea Nitrogen) 47 mg/dL (9.8-20.1); Calc. Creatinine Clearance 18 mL/min (70-130); Calcium 9.4 mg/dL (7.8-10.44); Carbon Dioxide 19 mmol/L (23-31); Chloride 113 mmol/L (98-107); Estimated GFR-MDRD 25; Glucose 161 mg/dL (83-110); Potassium 4.6 mmol/L (3.5-5.1); Sodium 144 mmol/L (136-145)
--- NOTE | 2019-04-04 17:58 | CON ---
DATE OF CONSULTATION: 04/04/2019 CONSULTING PHYSICIAN: Terry Loomis DO REASON FOR CONSULTATION: FABBY on CKD as well as hypokalemia. HISTORY OF PRESENT ILLNESS: An 89-year-old female with known history of hypertension; CKD, stage 3; cognitive impairment, who was admitted from assisted living after she was found on the floor. The patient who is wheelchair bound due to frequent falls reportedly has gotten weak and was subsequently found on the floor of her home and was subsequently brought to the hospital. Oral intake has been poor reportedly by the daughter. The patient is confused and was unable to provide any significant history. Above history was gleaned from review of medical record and from talking to the patient's daughter at bedside. On presentation to the ER, the patient was found to be tachycardic, and further evaluation with EKG showed atrial fibrillation with rapid ventricular response, and hence, the patient was started on Cardizem infusion. She also received 2 L of normal saline, and subsequently, was observed on the floor to be in respiratory distress, hence started on oxygen. The patient also was noted to have elevated creatinine of 2 and hypokalemia on presentation. Nephrology consult was requested to address these. Daughter reported that the patient has long-standing chronic kidney disease and used to see a assurance officer [place] before relocating over here and she is yet to establish care with any assurance officer. She also reported that the patient had intracranial bleed related to anticoagulation with Coumadin, which was followed by cognitive impairment, which progressively has gotten worse over the ages. The patient also has had several bowel motions, which was initially formed, but since today it has been watery. There has been no history of nausea or vomiting. Oral intake, however, has been poor since this hospitalization. PAST MEDICAL HISTORY: 1. Diastolic dysfunction. 2. Prior history of GI bleed. 3. Prior history of intracranial bleed. 4. Chronic anticoagulation. 5. Recurrent falls. 6. L1 compression fracture. 7. CKD, stage 3/4. 8. Pleural effusion, status post recent thoracentesis. 9. Cognitive impairment/dementia. PAST SURGICAL HISTORY: 1. Hysterectomy. 2. Varicose vein surgery. 3. Thoracentesis. FAMILY HISTORY: Noncontributory. This could not be evaluated; however, due to the patient's condition. SOCIAL HISTORY: The patient currently lives in assisted living facility. Daughter is the surrogate decision maker. There is no history of current alcohol, tobacco, or illicit drug use. ALLERGIES: NO KNOWN DRUG ALLERGIES REPORTED. MEDICATIONS: Prior to current hospital medications: 1. Aspirin 81 mg p.o. daily. 2. Premarin 1.25 mg p.o. daily. 3. Levothyroxine 75 mcg p.o. daily. 4. Loratadine 10 mg p.o. daily. 5. Melatonin 3 mg p.o. p.m. p.r.n. for insomnia. 6. Potassium chloride 10 mEq every 2 days. 7. Ranitidine 150 mg p.o. b.i.d. 8. Furosemide 40 mg p.o. daily. 9. DuoNeb 3 mL nebulization q.6 p.r.n. for shortness of breath. 10. Metoprolol 75 mg p.o. b.i.d. Current hospital medications: 1. Azithromycin 500 mg IV daily. 2. Ceftriaxone 2 g daily. 3. Cardizem infusion, however, was discontinued earlier today. 4. Methylprednisolone 40 mg IV q.12 hours. 5. Aspirin 81 mg daily. 6. Premarin 1.25 mg p.o. daily. 7. Pepcid 20 mg p.o. daily at bedtime. 8. Furosemide 40 mg p.o. daily. 9. Levothyroxine 75 mcg p.o. daily. 10. Loratadine 10 mg p.o. q.p.m. 11. Metoprolol tartrate 100 mg p.o. b.i.d. 12. Potassium chloride 40 mEq t.i.d. with meals. 13. Acetaminophen 1000 mg p.o. q.6 p.r.n. for pain. 14. Hydralazine 10 mg IV push q.4 p.r.n. for acute elevation in blood pressure. 15. Melatonin 3 mg p.o. daily at bedtime p.r.n. for insomnia. 16. Zofran 4 mg p.r.n. for nausea and vomiting. REVIEW OF SYSTEMS: This is grossly limited due to the patient's condition; however, she denied headache, chest pain, dysuria, or abdominal pain. PHYSICAL EXAMINATION: VITAL SIGNS: Current vitals showed temperature 97.5, pulse 111, respiratory rate 20, SpO2 100% on 2 L nasal cannula, and blood pressure is 155/92. GENERAL: Elderly female, in no obvious distress. Afebrile. Anicteric. Acyanotic. The patient, however, is confused. HEENT: Normocephalic and atraumatic. Pupils are reacting to light. Oral mucosa is moist. NECK: Supple. Nontender with good range of motion. No masses or lymphadenopathy appreciated. CARDIOVASCULAR: Irregular rhythm and rate. Tachycardic with normal heart sounds 1 and 2. No obvious murmur appreciated. RESPIRATORY: Fair air entry bilateral, though decreased at right base. No obvious rhonchi were appreciated. There is no use of accessory muscles appreciated. GI: Full, soft, nontender, and nondistended with normal bowel sounds. EXTREMITIES: Grossly normal looking, atraumatic, with no edema or erythema. Mild genu valgus deformity noted. NEUROLOGIC: Conscious and alert. The patient, however, is oriented only to person and place. She is clearly confused with memory lapses. Cranial nerves 2 through 12 are intact. The patient moves all extremities with symmetric power. SKIN: No obvious rash, erythema, or ecchymosis appreciated. DIAGNOSTIC DATA: LABORATORY RESULTS: CBC today showed WBC count of 12.8, hemoglobin of 10.2, MCV of 114, and platelets of 157. BMP today showed sodium 143, potassium 2.8, chloride 110, CO2 of 24, BUN 41, creatinine 1.72, glucose 159, and calcium 9.1. Magnesium is 2.1. Urinalysis performed on April 01 showed yellow turbid urine with pH of 5.5, specific gravity of 1.015, positive protein and blood, but negative glucose, ketones, nitrite, bilirubin, and leukocyte esterase. Microscopy showed 4 to 6 rbc and wbc with squamous cells 7 to 10. More than 50 hyaline casts were noted. Review of medical record here showed that creatinine has ranged from 1.2 to 1.7 since December 2018, but reached to a peak of 2.0 on presentation to this hospital on April 01. ASSESSMENT: 1. Acute kidney injury superimposed on chronic kidney disease, stage 3/4: Most likely due to hemodynamic factors related to diuretic therapy and volume depletion. The patient is said to have poor oral intake and continued to take diuretics. Creatinine was 2.01 on presentation, but that has improved to 1.7 currently. Of note, the patient had creatinine of 1.2 to 1.3 in December 2018. Baseline creatinine, however, is unknown. The patient used to see a assurance officer [place] prior to relocating to this place. 2. Hypokalemia: This is most likely related to poor oral intake as well as increased urinary losses due to diuretic therapy. Despite being on supplementation, serum potassium is still low. Serum magnesium is normal at 2.1. 3. Chronic kidney disease, stage 3/4: Etiology is unclear, but seems to be related to hypertension and old age. Chronic hemodynamic factors related to diuretic therapy and for diastolic heart failure may be contributory. 4. Anemia in chronic kidney disease. 5. Proteinuria. 6. Hypertension: Control is fair. 7. Recurrent falls. Orthostatic hypotension is a concern as well as physical deconditioning. 8. Acute encephalopathy: This is most likely metabolic from acute kidney injury, electrolyte derangement, and possibly urinary tract infection. Daughter reported that mental status has worsened and the patient is clearly confused. Baseline dementia/cognitive impairment related to intracranial bleed. PLAN: 1. I agree with repletion of serum potassium with potassium chloride. We will monitor serum levels with a view to giving further supplement to correct this. The patient having diarrhea illness will definitely worsen this. Given the patient is having diarrhea and oral intake is poor, we will hold diuretics at this time while monitoring renal function, I and O, as well as daily weights and volume status. 2. We will also get urine protein creatinine ratio as well as renal ultrasound. 3. We will try and get medical record from the former assurance officer in with a view to knowing the patient's baseline renal functions. 4. We will also get vitamin D as well as PTH. 5. We will also get iron chemistry. 6. Further recommendation to follow depending on hospital course and evaluation of other laboratory tests. Many thanks for involving us in the care of this patient. Job ID: [id number]
[2019-04-04] MEDS: Metoprolol Tartrate 100 MG TAB PO SCH (22:43)
[2019-04-04] MEDS: Famotidine 20 MG TAB PO SCH (22:43)
[2019-04-04] MEDS: Loratadine 10 MG TAB PO SCH (22:43)
--- NOTE | 2019-04-04 23:42 | ULT ---
RENAL ULTRASOUND: INDICATIONS: Chronic kidney disease. FINDINGS: The left kidney measures 8.3 cm in length. The right kidney measures 9.8 cm. Both kidneys show shameka ical thinning. Mild increased cortical echogenicity is consistent with chronic renal disease. No ev idence of hydronephrosis or mass. The bladder is mildly distended and appears unremarkable. Uretera l jets were confirmed by the technologist. IMPRESSION: Kidneys show mild cortical thinning and mild increased cortical echogenicity. POS: RENÉ
[2019-04-05 04:50] LABS: Iron 61 ug/dL (50-170); Iron Binding Capacity, Total 209 mcg/dL (265-497)
[2019-04-05 04:58] LABS: Albumin 3.4 g/dL (3.4-4.8); Anion Gap 16 mmol/L (10-20); BUN (Urea Nitrogen) 53 mg/dL (9.8-20.1); BUN/Creatinine Ratio 25.85; Calc. Creatinine Clearance 16 mL/min (70-130); Calcium 9.8 mg/dL (7.8-10.44); Carbon Dioxide 21 mmol/L (23-31); Chloride 114 mmol/L (98-107); Estimated GFR-MDRD 23; Glucose 152 mg/dL (83-110); Iron Binding Capacity, Total 213 mcg/dL (265-497); Phosphorus 3.9 mg/dL (2.3-4.7); Potassium 5.5 mmol/L (3.5-5.1); Sodium 145 mmol/L (136-145)
[2019-04-05] MEDS: Levothyroxine Sodium 75 MCG TAB PO SCH (06:03)
[2019-04-05] MEDS ORDERED: Amlodipine 5 MG TAB PO SCH (06:45)
[2019-04-05] MEDS: methylPREDNISolone Sod Succ 40 MG VIAL IVP SCH (08:38)
[2019-04-05] MEDS: Aspirin 81 mg Enteric Coated Tablet PO SCH (08:38)
[2019-04-05] MEDS: Metoprolol Tartrate 100 MG TAB PO SCH ×2 (08:38→20:08)
[2019-04-05] MEDS: Sodium Bicarbonate Tab 325 MG TAB PO SCH ×3 (08:38→20:06)
--- NOTE | 2019-04-05 12:19 | PRG ---
DATE OF SERVICE: 04/05/2019 SUBJECTIVE: The patient indicates she is feeling a little bit better. Her daughter reports that she has never seen her mother to have hospital related delirium or psychoses in the past, although she has been through previous admissions. OBJECTIVE: VITAL SIGNS: Temperature is 97.6, pulse 112, respirations 18, O2 saturations 95% on room air, and BP 138/99. GENERAL APPEARANCE: Age-appropriate female. She is in no distress. She is pleasant, but confused and slightly hyperactive. HEART: Irregular, tachycardic with 2/4 murmur at the right upper sternal border, systolic in nature. LUNGS: Clear bilaterally without significant wheezes or rales. ABDOMEN: Soft, nontender, and nondistended. Positive bowel sounds. No masses. No organomegaly. EXTREMITIES: Some chronic stasis bronzing, but no acute inflammation. IMPRESSION AND PLAN: 1. Acute hypoxic respiratory failure: The patient is no longer on supplemental oxygen. Saturating well on room air. 2. Multifocal pneumonia: Continue with Rocephin and azithromycin. She is afebrile. We will discontinue her steroids. 3. Atrial fibrillation with RVR: The patient was initially on a Cardizem drip, changed over to p.o. metoprolol 100 mg b.i.d. Continues to be somewhat tachycardic. I am going to consult Cardiology. I am discontinuing her nebulizer treatments as I believe they maybe contributory. Also discontinuing the steroids. We will check a thyroid level in the morning. 4. Renal: The patient has chronic kidney disease, stage 4. Her creatinine improved slightly after admission. It is slowly creeping back up. She is not real far off her baseline. Nephrology is following. 5. Hypothyroidism: Continuing with her levothyroxine, checking her TSH in the morning. 6. Confusion. The patient appears to have some hospital related delirium/psychoses. Discussed with the patient's daughter at length, possibly stopping the nebs and methylprednisolone maybe helpful, but likely this is largely benign in nature. Job ID: [id number]
[2019-04-05] MEDS: Azithromycin 500 MG in Sodium Chloride 0.9% 250 ML 250 ML IVPB SCH (14:33)
[2019-04-05 15:41] LABS: Creatinine, Urine 74.67 mg/dL (47-110)
[2019-04-05] MEDS: cefTRIAXone\\ROCEPHIN 2 GM in Sodium Chloride 0.9% 100 ML IVPB SCH (16:19)
[2019-04-05] MEDS: Dextrose 5 %-0.45 % NaCl 1,000 ML IV SCH (18:32)
--- NOTE | 2019-04-05 19:55 | PRG ---
DATE OF SERVICE: 04/05/2019 SUBJECTIVE: An 89-year-old female who is being seen on followup for acute kidney injury and hypokalemia. The patient with cognitive impairment, was unable to provide any significant history and there was no relative at the bedside. She however denied chest pain or any discomfort. As per nursing staff, oral intake has been poor. OBJECTIVE: VITAL SIGNS: Temperature 96.8, pulse 109, respiratory rate 16, SpO2 of 97 on room air, blood pressure 169/110. GENERAL: Elderly female, in no obvious distress. The patient is confused. HEENT: Normocephalic, atraumatic. Oral mucosa is mildly dry. CARDIOVASCULAR: Irregular rhythm and rate. Tachycardic. Normal heart sounds 1 and 2. RESPIRATORY: Fair air entry bilateral, decreased at right base posteriorly. No obvious crackle or rhonchi was appreciated. GI: Abdomen is full, soft, nontender, nondistended with normal bowel sounds. EXTREMITIES: Grossly normal looking. No edema or erythema. SKIN: Some bruises and ecchymoses noticed on the forearms bilaterally. NEUROLOGIC: The patient is awake and conversational, but confused. Moves all extremities. DIAGNOSTIC DATA: Renal function panel showed sodium 145, potassium 5.5, chloride 114, CO2 of 21, anion gap 16, BUN 53, creatinine 2.05, glucose 152, calcium 9.8, phosphorus 3.9, albumin 3.4. Vitamin D 23.2. Iron chemistry showed serum iron 61, TIBC 209, saturation 29, ferritin 1276. ASSESSMENT: 1. Acute kidney injury: Most likely related to hemodynamic factors related to volume status. The patient on presentation had creatinine of above 2, which trended down to 1.7, but went up to 2.05 today. The patient has been on diuretics. However, oral intake has been poor since admission. We will discontinue Lasix and encourage liberal oral intake. I discussed with the nursing staff to help the patient eat so that oral intake will improve. We will monitor renal function. If there is no significant improvement, we will consider cautious IV fluids given the patient has history of congestive heart failure. 2. Hyperkalemia: Potassium today is 5.5. This is over correction of hypokalemia. We will discontinue oral supplementation. Correction of metabolic acidosis with sodium bicarb will also help with this hyperkalemia. We will follow closely. 3. Hypokalemia: Repleted. Now hyperkalemic. 4. Metabolic acidosis: We will start sodium bicarbonate. 5. Hypertension: Control is suboptimal. We will start amlodipine 5 mg and monitor vitals with a view to optimize antihypertensives to get adequate BP control. 6. Chronic diastolic heart failure: The patient seems compensated at this time. 7. Dementia/cognitive impairment: Deferred to primary attending. Job ID: [id number]
[2019-04-05] MEDS: Famotidine 20 MG TAB PO SCH (20:08)
[2019-04-05] MEDS: Loratadine 10 MG TAB PO SCH (20:08)
--- NOTE | 2019-04-05 22:29 | CON ---
DATE OF CONSULTATION: HISTORY OF PRESENT ILLNESS: The patient is an 89-year-old woman with a history of chronic atrial fibrillation, who was admitted after a fall. The patient was seen a few months ago with atrial fibrillation. She was felt to be at a prohibitive risk for anticoagulation secondary to history of GI hemorrhage. The patient has otherwise no known cardiac history. Denies having any history of chest discomfort. She was admitted after she fell. She was found to have a fever and diagnosed with pneumonia. The patient has been on IV antibiotics, still had a rapid heart rate. The patient reports having palpitations. She denies having any chest discomfort. PAST MEDICAL HISTORY: 1. Atrial fibrillation. 2. Hypertension. 3. GI hemorrhage. 4. History of several falls. 5. Renal insufficiency. PAST SURGICAL HISTORY: She had hysterectomy. MEDICATIONS: See nursing list. ALLERGIES: NONE. FAMILY HISTORY: No strong family history of coronary artery disease. SOCIAL HISTORY: Nonsmoker. REVIEW OF SYSTEMS: Notable for decreased appetite, otherwise unremarkable. PHYSICAL EXAMINATION: GENERAL: Thin woman in mild distress. Blood pressure 161/96. NECK: Showed no jugular venous distention. . LUNGS: There are decreased breath sounds bilaterally. HEART: Irregular rate and rhythm. Normal S1 and S2. ABDOMEN: Nondistended. EXTREMITIES: Show trace edema. VASCULAR: Radial pulses 2+. LABORATORY DATA: White blood cell count 12.8, hemoglobin 10.2, hematocrit 32.4, platelets 157. Sodium 145, potassium 5.5, chloride 114, bicarbonate 21, BUN 53, and creatinine is 2.05. DIAGNOSTIC STUDIES: EKG revealed atrial fibrillation with nonspecific ST-T wave abnormality. IMPRESSION: 1. Pneumonia. 2. Atrial fibrillation with rapid ventricular response. 3. Hypertension. 4. History of GI hemorrhage. This patient presents with pneumonia. She has had rapid atrial fibrillation. The patient also has renal insufficiency. We would place the patient on a low dose of Cardizem. She will be continued on her metoprolol. Please call my office. We would also recommend the patient be placed on . She may need a PEG tube due to her decreased appetite. We will follow this patient with you through her hospitalization. Job ID: [id number]
[2019-04-06] MEDS: Levothyroxine Sodium 75 MCG TAB PO SCH (05:26)
[2019-04-06] MEDS ORDERED: Amlodipine 10 MG TAB PO SCH (07:45)
[2019-04-06] MEDS ORDERED: Amlodipine 5 MG TAB PO SCH (09:00)
--- NOTE | 2019-04-06 09:16 | PDOC.PN ---
- Subjective Encounter Start Date: 04/06/19 Encounter Start Time: 09:13 Still confused. Denies problems. Says she is not hungry now, but will be. - Objective Resuscitation Status - Order Detail: 04/02/19 12:47 Resuscitation Status Routine Resuscitation Status: FULL: Full Resuscitation Vital Signs & Weight: Vital Signs (12 hours) Temp Pulse Resp BP Pulse Ox 04/06/19 05:00 98 20 160/95 H 95 04/06/19 04:00 96.8 F L 91 19 175/106 H 98 04/06/19 00:00 98.2 F 106 H 20 161/102 H 95 Weight Admit Weight 123 lb 8 oz Weight 133 lb 14.4 oz I&O: 04/05/19 04/06/19 04/07/19 06:59 06:59 06:59 Intake Total 480 970 Output Total 370 590 Balance 110 380 Result Diagrams: 04/04/19 04:08 04/05/19 04:05 Phys Exam - Physical Examination Constitutional: NAD Confused. Respiratory: no wheezing, no rales, no rhonchi Cardiovascular: RRR, no rub Gr II M Gastrointestinal: soft, non-tender, no distention, positive bowel sounds Musculoskeletal: no edema Neurological: non-focal Globally confused. Skin: normal turgor Dx/Plan (1) Acute respiratory failure with hypoxia Code(s): J96.01 - ACUTE RESPIRATORY FAILURE WITH HYPOXIA Status: Acute Comment: Secondary to pneumonia and pleural effusion. Continue supplemental oxygen as needed. (2) Pneumonia Code(s): J18.9 - PNEUMONIA, UNSPECIFIED ORGANISM Status: Acute Comment: Rocephin and Azithromycin. (3) Atrial fibrillation with rapid ventricular response Code(s): I48.91 - UNSPECIFIED ATRIAL FIBRILLATION Status: Acute Comment: Persistent tachycardia. On Metoprolol. Cards consulted. Diltiazem added. Titrating dose. (4) HTN (hypertension) Code(s): I10 - ESSENTIAL (PRIMARY) HYPERTENSION Status: Acute Comment: Titrating the CCB. (5) Acute metabolic encephalopathy Code(s): G93.41 - METABOLIC ENCEPHALOPATHY Status: Acute Comment: Likely secondary to hospitalization, infection. (6) Acute on chronic renal failure Code(s): N17.9 - ACUTE KIDNEY FAILURE, UNSPECIFIED; N18.9 - CHRONIC KIDNEY DISEASE, UNSPECIFIED Status: Acute Comment: Nephrology following. Fluids. (7) Hypothyroidism Code(s): E03.9 - HYPOTHYROIDISM, UNSPECIFIED Status: Acute Comment: TSH pending (8) Pleural effusion, right Code(s): J90 - PLEURAL EFFUSION, NOT ELSEWHERE CLASSIFIED Status: Acute (9) Compression fracture of L1 lumbar vertebra Code(s): S32.010A - WEDGE COMPRESSION FRACTURE OF FIRST LUMBAR VERTEBRA, INIT Status: Acute Comment: Age undetermined - Plan * Continue titrating CCB. * Will give Lovenox and determine decision on longer term benefit v. 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 * Repeat CXR. * Labs pending. * Unclear how much she is eating. Weight indicates she is up 10 pounds. On Dextrose fluids.
[2019-04-06] MEDS ORDERED: Enoxaparin Sodium 60 MG/0.6 ML SYRINGE SC SCH ×2 (09:45→21:00)
[2019-04-06] MEDS: Aspirin 81 mg Enteric Coated Tablet PO SCH (09:49)
[2019-04-06] MEDS: Metoprolol Tartrate 100 MG TAB PO SCH ×2 (09:49→21:09)
[2019-04-06] MEDS: Sodium Bicarbonate Tab 325 MG TAB PO SCH ×3 (09:49→21:09)
[2019-04-06 10:10] LABS: Albumin 3.1 g/dL (3.4-4.8); Anion Gap 16 mmol/L (10-20); BUN (Urea Nitrogen) 59 mg/dL (9.8-20.1); BUN/Creatinine Ratio 33.15; Calc. Creatinine Clearance 21 mL/min (70-130); Calcium 9.7 mg/dL (7.8-10.44); Carbon Dioxide 17 mmol/L (23-31); Chloride 116 mmol/L (98-107); Estimated GFR-MDRD 27; Glucose 92 mg/dL (83-110); Phosphorus 2.6 mg/dL (2.3-4.7); Potassium 4.3 mmol/L (3.5-5.1); Sodium 145 mmol/L (136-145)
[2019-04-06] MEDS: Dextrose 5 %-0.45 % NaCl 1,000 ML IV SCH (10:18)
--- NOTE | 2019-04-06 11:30 | RAD ---
EXAM: CHEST ONE VIEW HISTORY: Pneumonia COMPARISON: 04/01/2019 FINDINGS: Pleural and parenchymal changes are seen at the right lung base which have increased when compared to the prior study. Findings are likely related to moderate size right pleural effusion and atelectasis. Superimposed pneumonia at the right lung base cannot be excluded based on this exam. The re is a patchy parenchymal density seen at the left lung base which was not present on the prior study but is worrisome for focal area of pneumonitis. The right cardiac border is obscured. Pulmonary vasculature is magnified by projection. No other inte rval change. IMPRESSION: 1. Moderately large right pleural effusion and associated passive atelectasis. Superimposed pneumonia right lung base cannot be excluded. 2. Patchy parenchymal density left lung base not seen on the prior study. This is worrisome for devel oping pneumonia. Follow-up to resolution is recommended.
--- NOTE | 2019-04-06 16:33 | PRG ---
DATE OF SERVICE: 04/06/2019 SUBJECTIVE: An 89-year-old female with cognitive impairment, admitted after she was found on the floor. Nephrology is following the patient for acute kidney injury and electrolyte derangements. Oral intake remained suboptimal, though the patient is not tolerating oral supplements. No nausea or vomiting. The patient denied any discomfort. OBJECTIVE: VITAL SIGNS: Temperature 97.7, pulse 88, respiratory rate 16, SpO2 of 96% on room air, and blood pressure 166/94. GENERAL: Elderly, confused female in no obvious distress. Afebrile. Anicteric. Acyanotic. HEENT: Normocephalic and atraumatic. Oral mucosa is moist. CARDIOVASCULAR: Irregular rhythm and rate. Normal heart sounds 1 and 2. RESPIRATORY: Fair air entry bilateral. Decreased at right base. No use of accessory muscles appreciated. GI: Full, soft, nontender, and nondistended with normal bowel sounds. EXTREMITIES: Grossly normal looking except bruises and ecchymosis on both forearms. No edema, erythema, or cyanosis appreciated. Distal pulses are palpable. NEUROLOGIC: The patient is awake. Oriented to person at least. Obeys commands. Moves all extremities. PSYCHIATRIC: The patient is confused. She is laughing without any reason at this time. DIAGNOSTIC DATA: CBC showed WBC count of 12.8, hemoglobin of 10.2, MCV of 114, platelet of 157. Renal function panel today showed sodium 145, potassium 4.3, chloride 116, CO2 of 17, anion gap 16, BUN 59, creatinine 1.78, glucose 92, calcium 9.7, phosphorus 2.6, and albumin 3.1. ASSESSMENT AND PLAN: 1. Acute kidney injury: Due to hemodynamic factors related to hypovolemia. The patient is currently off diuretic, was started on gentle IV fluids with improvement in creatinine down to 1.78 plus 2.05. We will discontinue IV fluid at this time due to worsening hyperchloremic acidosis as well as increased risk of volume overload. 2. Hypokalemia: Repleted. 3. Hyperkalemia: Due to over correction of hypokalemia. Currently off potassium supplementation. 4. Worsening metabolic acidosis, both anion and hyperchloremic. We will discontinue normal saline. We will, however, continue on sodium bicarbonate. We will recheck electrolytes in the morning. 5. Hypertension: Control is suboptimal. We will monitor the patient with the addition of Cardizem as well as with the discontinuation of saline infusion. If BP remains suboptimal, we will consider adding another antihypertensive. Job ID: [id number]
--- NOTE | 2019-04-06 17:03 | PDOC.EVN ---
Event Note - Event Note Event Note: Patient's daughter was concerned that her mother's speech had changed. I came to evaluate the patient. She says her mother sounds like her tongue is stuck to the bottom of her mouth. I examined the patient. She is sitting up in chair. She is awake and conversant. She is pleasant and follows all commands. CN's are intact. Bilateral conversion worker strength is normal. She is less confused and more appropriate than my exam this morning. We discussed her pneumonia. I believe she is improving. Satting well on room air now. Her kidney function is fairly stable. The afib and BP have been problematic. We are making progress. Discussed anticoagulation. She reports her mother had a brain bleed and a GI bleed from AVM's while on anticoagulation. Ultimately, decided to stop the anticoagulation as the risk will outweigh the benefits.
[2019-04-06] MEDS: Azithromycin 500 MG in Sodium Chloride 0.9% 250 ML 250 ML IVPB SCH (19:41)
[2019-04-06] MEDS: cefTRIAXone\\ROCEPHIN 2 GM in Sodium Chloride 0.9% 100 ML IVPB SCH (21:08)
[2019-04-06] MEDS: Loratadine 10 MG TAB PO SCH (21:09)
[2019-04-06] MEDS: Famotidine 20 MG TAB PO SCH (21:09)
[2019-04-07] MEDS: Levothyroxine Sodium 75 MCG TAB PO SCH (05:18)
[2019-04-07 05:21] LABS: Platelet Count 164 thou/uL (130-400)
[2019-04-07 05:42] LABS: Hemoglobin 11.1 g/dL (12.0-16.0)
[2019-04-07] MEDS ORDERED: Enoxaparin Sodium 60 MG/0.6 ML SYRINGE SC SCH (09:00)
[2019-04-07] MEDS ORDERED: Amlodipine 10 MG TAB PO SCH (09:00)
[2019-04-07] MEDS: Aspirin 81 mg Enteric Coated Tablet PO SCH (09:02)
[2019-04-07] MEDS: Metoprolol Tartrate 100 MG TAB PO SCH (09:03)
[2019-04-07] MEDS: Sodium Bicarbonate Tab 325 MG TAB PO SCH (09:03)
[2019-04-07 09:28] LABS: Anion Gap 13 mmol/L (10-20); BUN (Urea Nitrogen) 56 mg/dL (9.8-20.1); Calc. Creatinine Clearance 24 mL/min (70-130); Calcium 9.7 mg/dL (7.8-10.44); Carbon Dioxide 24 mmol/L (23-31); Chloride 112 mmol/L (98-107); Estimated GFR-MDRD 31; Glucose 99 mg/dL (83-110); Potassium 4.1 mmol/L (3.5-5.1); Sodium 145 mmol/L (136-145)
--- NOTE | 2019-04-07 10:05 | PRG ---
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 The patient with cognitive impairment. Has no complaints. Reportedly was agitated last night, now has a sitter at the bedside. Oral intake remains poor. OBJECTIVE: VITAL SIGNS: Temperature 98.3, pulse 89, respiratory rate 18, SpO2 of 95% on room air, and blood pressure 170/99. GENERAL: Elderly female, in no obvious distress. The patient is confused. HEENT: Normocephalic, atraumatic. Oral mucosa is moist. Pupils are reacting to light. CARDIOVASCULAR: Irregular rhythm. Normal heart rate. Normal heart sounds 1 and 2 with soft systolic murmur. RESPIRATORY: Fair air entry bilaterally with mildly decreased air entry at right base. No respiratory distress appreciated. GI: Full, soft, nontender, and nondistended with normal bowel sounds. EXTREMITIES: Grossly normal looking atraumatic with no edema or erythema. SKIN: Few bruises and ecchymoses started on both forearms. NEUROLOGIC: Conscious and alert. Oriented to person at least. The patient is confused. Obey simple commands and moves all extremities. DIAGNOSTIC DATA: BMP today showed sodium 145, potassium 4.1, chloride 112, CO2 of 24, creatinine 1.55, BUN 56, and calcium 9.7. ASSESSMENT: 1. Acute kidney injury: This is due to poor oral intake as well as diuretic use. Improved with discontinuation of Lasix and IV fluids. Even with discontinuation of normal saline due to worsening hyperchloremia, renal function stayed improved. 2. Metabolic acidosis: Due to chronic kidney disease as well as hyperchloremic acidosis from normal saline use. Improved with sodium bicarb. We will continue sodium bicarbonate given chronic kidney disease stage 3. 3. Hypertension: Control remains suboptimal. We will defer to Cardiology at this time since the patient also has atrial fibrillation and on rate control medications. 4. Hyperkalemia: Due to overcorrection of hypokalemia: Now within normal limits. 5. Hypokalemia: Related to diuretic therapy. Repleted. 6. Dementia/cognitive impairment with agitation: Defer to primary attending. Job ID: [id number]
[2019-04-07 11:16] VITALS: BMI 26.3
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
[2019-04-07] MEDS: Azithromycin 500 MG in Sodium Chloride 0.9% 250 ML 250 ML IVPB SCH (14:26)
--- NOTE | 2019-04-08 08:44 | PRG ---
DATE OF SERVICE: 04/08/2019 SUBJECTIVE: The patient continues to be confused this morning. A bit more agitated than she appeared yesterday. She denies any pain. OBJECTIVE: HEART: Regular with a 2/4 murmur primarily at the left upper sternal border. LUNGS: Otherwise, clear. ABDOMEN: Benign. EXTREMITIES: Benign with no edema. IMPRESSION AND PLAN: 1. Acute hypoxic respiratory failure secondary to underlying pneumonia. This is resolved. 2. Pneumonia. The patient has been changed over to p.o. antibiotics and is stable from that perspective. 3. Acute kidney injury, stable, resolved. 4. Atrial fibrillation with rapid ventricular response, appears to be adequately rate controlled. Cardiology following. 5. Hypertension. Medications being adjusted with calcium-channel blockers to affect both rate and blood pressure, appears to be improved. 6. Encephalopathy. Suspect the patient has some degree of underlying dementia. She has a waxing and waning encephalopathy. She was better yesterday, a bit more confused and agitated this morning. Continuing at the same time, the patient medically appears to be stable. This is a primary barrier to her discharge at this time. We will need to discuss with the family at some point today. Please note, the electronic health record system is offline in dealing with the limited information with our interaction today. Job ID: [id number]
[2019-04-08] MEDS: Metoprolol Tartrate 100 MG TAB PO SCH ×3 (09:56→20:15)
[2019-04-08] MEDS: Loratadine 10 MG TAB PO SCH ×2 (09:56→20:15)
[2019-04-08] MEDS: Sodium Bicarbonate Tab 325 MG TAB PO SCH ×3 (09:56→20:14)
[2019-04-08] MEDS: Famotidine 20 MG TAB PO SCH ×2 (09:56→20:14)
[2019-04-08] MEDS: Aspirin 81 mg Enteric Coated Tablet PO SCH (10:09)
[2019-04-08] MEDS: Levothyroxine Sodium 75 MCG TAB PO SCH (10:10)
--- NOTE | 2019-04-08 17:49 | PRG ---
DATE OF SERVICE: 04/08/2019 SUBJECTIVE: An 89-year-old female with chronic cognitive impairment, admitted after she was found on the floor with some confusion. Nephrology consult was requested due to hypokalemia and acute kidney injury. The patient remained confused. No new complaint; however. Oral intake remains suboptimal. OBJECTIVE: VITAL SIGNS: Temperature 98.0, pulse 83, respiratory rate 18, SpO2 of 94 on room air, and blood pressure 138/75. GENERAL: Elderly female, in no obvious distress. The patient; however, is confused, not very conversational today. HEENT: Normocephalic and atraumatic. CARDIOVASCULAR: Irregular rhythm and rate. Normal heart sounds 1 and 2 with soft systolic murmur. RESPIRATORY: Fair air entry bilateral. GI: Abdomen is soft, nontender, and nondistended with normal bowel sounds. EXTREMITIES: Grossly normal looking atraumatic with no obvious edema or erythema. NEUROLOGIC: The patient is awake, not verbal today, obeys simple commands. DIAGNOSTIC DATA: No new labs today. ASSESSMENT AND PLAN: 1. Acute kidney injury: Resolved with discontinuation of diuretics and get cautious IV fluid. The patient is currently off IV fluid. We will continue to hold diuretics at this time as the patient's oral intake is still suboptimal. 2. Chronic kidney disease stage 3/4: No acute issues. Avoid nephrotoxic agents. 3. Hypokalemia: Corrected. 4. Hyperkalemia: Due to over-correction of hypokalemia, resolved. 5. Acute on chronic respiratory failure with hypoxia, felt to be congestive heart failure exacerbation, resolved. 6. Hypertension: Control is acceptable. We will defer to Cardiology given chronic atrial fibrillation with rapid ventricular response requiring adjustment of rate control medications. 7. Disposition. The patient remained in stable. We will sign off at this time. Call for any clarification or questions. Job ID: [id number]
[2019-04-08 17:55] LABS: Anion Gap 13 mmol/L (10-20); BUN (Urea Nitrogen) 47 mg/dL (9.8-20.1); Calc. Creatinine Clearance 27 mL/min (70-130); Calcium 9.8 mg/dL (7.8-10.44); Carbon Dioxide 27 mmol/L (23-31); Chloride 112 mmol/L (98-107); Estimated GFR-MDRD 37; Glucose 94 mg/dL (83-110); Potassium 3.8 mmol/L (3.5-5.1); Sodium 148 mmol/L (136-145)
[2019-04-09] MEDS: Levothyroxine Sodium 75 MCG TAB PO SCH (05:26)
[2019-04-09] MEDS: Sodium Bicarbonate Tab 325 MG TAB PO SCH (08:50)
[2019-04-09] MEDS: Aspirin 81 mg Enteric Coated Tablet PO SCH (08:50)
[2019-04-09] MEDS: Metoprolol Tartrate 100 MG TAB PO SCH (08:50)
[2019-04-09 12:24] VITALS: TEMP 97.5
[2019-04-09 17:07] VITALS: BP 146/67
--- NOTE | 2019-04-10 19:37 | DIS ---
DATE OF ADMISSION: 04/02/2019 DATE OF DISCHARGE: 04/09/2019 DISCHARGE DIAGNOSES: 1. Acute hypoxic respiratory failure secondary to pneumonia. 2. Left-sided pneumonia, bacterial. 3. Atrial fibrillation with rapid ventricular response. 4. Hypertension. 5. Acute metabolic encephalopathy. 6. Acute on chronic renal failure. 7. Hypothyroidism. 8. Pleural effusion. 9. Compression fracture of the lumbar vertebrae of indeterminate age. HISTORY OF PRESENT ILLNESS: This patient is an 89-year-old female who lives in assisted living facility. She presented to the hospital through the emergency department because of fall and some weakness. The patient was found down complaining of some weakness, although she is typically more ambulatory with a rolling walker or wheelchair. In the emergency department, the patient was noted to have atrial fibrillation with rapid ventricular response. Chest x-ray showed some bilateral pleural effusions and the potential for developing pneumonia. HOSPITAL COURSE: The patient was admitted to the hospital. She was noted to have some worsening of her renal indices with a GFR of 23, which was below her baseline, which typically ran in the low 30s. She had some slightly elevated troponins, which were felt to be normal given her age and renal function. She was started on antibiotics for potential pneumonia and was seen in consultation by Cardiology for her atrial fibrillation with rapid ventricular response. The patient was already on beta blockade and these were increased. Ultimately, there was some addition of calcium channel blockers and the dose of that was increased until the patient had better control both over her heart rate and her blood pressure. She was also seen in consultation by Nephrology and felt her renal insufficiency was due to diuretic therapy and volume depletion. She did receive some subsequent hydration and her numbers did improve somewhat and stabilized. The patient unfortunately developed a little delirium while she was in the hospital, which did ultimately start to respond over several days and once her mental status was adequately improved, her heart rate and blood pressure were controlled, her renal function slightly improved and stabilized near her baseline, she was felt to be stable for discharge to home. DISPOSITION: The patient is discharged back to her assisted living facility. ACTIVITY: As tolerated. DIET: She will be on a regular pureed diet. DISCHARGE MEDICATIONS: She will be on: 1. Diltiazem 240 mg at bedtime. 2. Levaquin 250 mg p.o. daily. 3. Metoprolol 100 mg b.i.d. 4. Sodium bicarbonate 325 mg b.i.d. 5. She will continue with ranitidine 150 mg b.i.d. 6. Potassium 10 mEq every other day. 7. Aspirin 81 mg daily. 8. Loratadine 10 mg at bedtime. 9. Levothyroxine 75 mcg daily. She will discontinue the metoprolol 75 mg dose. FOLLOWUP: She will follow up with Dr. Morrissey in 7 days, Dr. Rothman in [address] Jamil in 2 to 3 weeks. She can return to the hospital should she have any problems prior to that followup. TIME SPENT: Total time dedicated to discharge activities including [id number] time with the patient and interaction with the case management staff was 35 minutes. Job ID: [id number]
--- NOTE | 2019-04-12 05:21 | PQF ---
[employer] Superintendent Crystal Reports Winform Viewer BRADLEY DOWLING DAVID R MD [id number] [facility]-252 [id number] CLINICAL DOCUMENTATION CLARIFICATION FORM: POST DISCHARGE Addendum to original discharge summary date: ____ Late entry note date: 04/13/19 DATE:04-12-19 ATTN:Glenn Simeon Please exercise your independent, professional judgment in responding to the clarification form. Clinical indicators are provided on the bottom of this form for your review Can you please specify whether Sepsis is ruled in or ruled out during this encounter? Please check appropriate box(s) to clarify if the following diagnosis has been ruled in or ruled out: Sepsis [ ] Ruled in diagnosis [ ] Continue to treat [ ] Resolved [x ] Ruled out diagnosis [ ] Cannot rule out diagnosis [ ] Other diagnosis please specify: [ ] Unable to determine For continuity of documentation, please document condition throughout progress notes and discharge summary. Thank You. CLINICAL INDICATORS: ED 04/02 pg11 Diagnosis: Primary: Sepsis, ADDITIONAL- Afib with RVR, dehydration, multifactorial pneumonia H&P 04/[address] Waite Chest imaging in the emergency room showed bilateral pleural effusions, right greater than left, with concern of developing pneumonia H&P 04/[address] Waite Acute hypoxic respiratory failure suspect secondary to bacterial pneumonia Consult 04/[address] Rothman Acute kidney injury superimposed CKD PN 04/[address] Rothman Metabolic acidosis: we will start sodium bicarbonate PN 04/[address] Simeon Acute metabolic encephalopathy, likely secondary to hospitalization, infection DS 04/[address] Simeon Acute hypoxic respiratory failure secondary to Pneumonia Laboratory:WBC=11.0 (04/03) 12.8 (04/04), Lactic acid=1.5 (04/01) Vital signs: Spmmc=501 (04/06),112 (04/07) Ijnuv=677 (04/06), 100 (04/07) Temp= 97.4 F (04/06) 97.0 F (04/07) H&P 04/[address] Waite Blood culture x2 dated 04/01/2019 negative RISK FACTOR: H&P Dr. Waite-[facility]: Deconditioning H&P Dr. Waite-[facility]- CKD stage [address] Cailin Waite- Bacterial Pneumonia DS Dr. Cailin Waite- Advancing age (89 yrs old) H&P Dr. Waite-[facility]: Pneumonia with effusion in January 2019 TREATMENTS: Imaging Dr. Carranza- Brain CT 04/[address] Carranza- Chest AbdomenPelvis CT Microbiology-Blood culture DEC 23- Zosyn IV 3.375 gm DEC 23- Vancomycin Hcl 1 gm DEC 23- Rocephin 100 ml IV (This form is maintained as a part of the permanent medical record) 2014 [employer]. All Rights Reserved Cassie [email or web address] [not provided] MTDD
== END 2019-04-09 17:35 | DRG 193 ==
LOC: ERS 19:39 → 2NO 04-02 00:31
PROVIDERS: ADMIT Internal Medicine; ATTEND Internal Medicine
DX: J15.9 Unspecified bacterial pneumonia (principal); G93.41 Metabolic encephalopathy; J96.21 Acute and chronic respiratory failure with hypoxia; S32.019A Unspecified fracture of first lumbar vertebra, initial encounter for closed fracture; I13.0 Hypertensive heart and chronic kidney disease with heart failure and stage 1 through stage 4 chronic kidney disease, or unspecified chronic kidney disease; N18.4 Chronic kidney disease, stage 4 (severe); I24.8 Other forms of acute ischemic heart disease; N17.9 Acute kidney failure, unspecified; E87.2 Acidosis; I50.32 Chronic diastolic (congestive) heart failure; W18.30XA Fall on same level, unspecified, initial encounter; I48.2 Chronic atrial fibrillation; R29.6 Repeated falls; E87.6 Hypokalemia; F03.90 Unspecified dementia, unspecified severity, without behavioral disturbance, psychotic disturbance, mood disturbance, and anxiety; D63.1 Anemia in chronic kidney disease; I95.1 Orthostatic hypotension; E03.9 Hypothyroidism, unspecified; T50.1X5A Adverse effect of loop [high-ceiling] diuretics, initial encounter; E86.9 Volume depletion, unspecified; Z79.899 Other long term (current) drug therapy; Z79.82 Long term (current) use of aspirin; Z90.710 Acquired absence of both cervix and uterus; Z99.3 Dependence on wheelchair; E87.5 Hyperkalemia
CPT/HCPCS: 36415; 51701; 70450; 71045; 71250; 72125; 74177; 76770; 80048; 80053; 80069; 81003; 81015; 82306; 82553; 82565; 82570; 82728; 83540; 83550; 83605; 83735; 83970; 84156; 84443; 84484; 84540; 85007; 85014; 85018; 85025; 85027; 85049; 87040; 87086; 87324; 87449; 87804; 93005; 94640; 94760; 96361; 96365; 96367; A4353; J0360; J0456; J0696; J1650; J2543; J2920; J3370; J3490; J7050; J7620

== ENCOUNTER 2019-04-11 11:50 | Inpatient (IN) | payer MEDICARE ==
--- NOTE | 2019-04-11 12:29 | RAD ---
EXAM: XR Chest 1 View Portable PROVIDED CLINICAL HISTORY: Dyspnea COMPARISON: 04/06/2019 FINDINGS: Cardiac silhouette remains enlarged. Persistent conspicuous right basilar pleural-parenchymal opacity . Left lung appears free of significant opacity. No evidence for pneumothorax. IMPRESSION: Conspicuous persistent right basilar pleural-parenchymal opacity.
[2019-04-11 12:55] LABS: ALT (SGPT) 21 U/L (8-55); AST (SGOT) 18 U/L (5-34); Alkaline Phosphatase 95 U/L (40-150); Anion Gap 12 mmol/L (10-20); BUN (Urea Nitrogen) 42 mg/dL (9.8-20.1); Bilirubin, Total 0.7 mg/dL (0.2-1.2); Calc. Creatinine Clearance 0 mL/min (70-130); Calcium 8.5 mg/dL (7.8-10.44); Carbon Dioxide 28 mmol/L (23-31); Chloride 105 mmol/L (98-107); Estimated GFR-MDRD 26; Globulin 2.9 g/dL (2.4-3.5); Glucose 101 mg/dL (83-110); Potassium 4.4 mmol/L (3.5-5.1); Protein, Total 5.9 g/dL (6.0-8.3); Sodium 141 mmol/L (136-145)
[2019-04-11 12:57] LABS: Band 13 % (5-11); Hemoglobin 8.7 g/dL (12.0-16.0); Lymphocytes 15 % (21-51); MDiff Complete? YES; Macrocytosis SLIGHT = 6-15 cells (100X) (0-5/hpf); Mean Corpuscular HGB CONC 31.3 g/dL (32.0-36.0); Mean Corpuscular Hemoglobin 35.5 pg (27.0-31.0); Mean Platelet Volume 8.8 fL (7.4-10.4); Monocytes 11 % (0-10); Neutrophil 61 % (42-75); Platelet Count 191 thou/uL (130-400); RBC Distribution Width 15.5 % (11.5-14.5); Red Blood Cell (RBC) Count 2.45 mill/uL (4.20-5.40); White Blood Cell (WBC) Count 9.3 thou/uL (4.8-10.8)
[2019-04-11 13:04] LABS: Base Excess-Venous 3.3 mmol/L (-2.0 to 3.0); Bicarbonate (HCO3v) 28.8 mmol/L (22.0-28.0); CO2 Tension (PvCO2) 47.7 mmHg (40.0-50.0); Calcium, Ionized 1.17 mmol/L (See Comments:); Chloride 106 mmol/L (98-107); Hemoglobin - Calc 8.7 g/dL (12.0-16.0); Potassium 4.4 mmol/L (3.5-5.1); Sodium 146 mmol/L (138-145); T. Carbon Dioxide 30.3 mmol/L (22.0-28.0); vO2 Saturation-calc 59.1 % (60.0-85.0)
[2019-04-11 13:21] LABS: INR-International Normal Ratio 1.2; Prothrombin Time 15.1 SEC (12.0-14.7)
[2019-04-11 13:22] LABS: PTT 31.5 SEC (22.9-36.1)
[2019-04-11] MEDS ORDERED: hydrALAZINE 20 MG/ML VIAL SLOW IVP PRN (14:09)
[2019-04-11] MEDS ORDERED: Ondansetron PF 4 MG/2 ML Vial IVP PRN ×2 (14:09)
[2019-04-11] MEDS ORDERED: Acetaminophen 325 MG TAB PO PRN (14:09)
[2019-04-11] MEDS ORDERED: Bisacodyl 10 MG SUPP PR PRN (14:09)
[2019-04-11] MEDS ORDERED: Senokot S 8.6-50 MG TAB PO PRN ×2 (14:09)
[2019-04-11] MEDS ORDERED: cloNIDine 0.1 MG TAB PO PRN (14:09)
[2019-04-11] MEDS ORDERED: Sodium Chloride 0.65% Nasal 44 ML BOT EA NARE PRN (14:09)
[2019-04-11] MEDS ORDERED: Benzonatate 100 MG CAP PO PRN (14:09)
[2019-04-11] MEDS ORDERED: Bisacodyl 5 MG TAB PO PRN ×2 (14:09)
[2019-04-11] MEDS ORDERED: Nitroglycerin 0.4 MG TAB (25 Tab Bottle) SL PRN (14:09)
[2019-04-11] MEDS ORDERED: Diabetic Tussin 200 MG/10 ML UDCUP PO PRN (14:09)
[2019-04-11] MEDS ORDERED: Artificial Tears 18 DROP/0.9 ML EA EYE PRN (14:09)
[2019-04-11] MEDS ORDERED: Calcium Carbonate 500 MG ChewTAB PO PRN (14:09)
[2019-04-11] MEDS ORDERED: Sodium Chloride 0.9% 1,000 ML IV SCH (14:15)
[2019-04-11 15:41] LABS: Hemoglobin 9.1 g/dL (12.0-16.0)
[2019-04-11 15:52] LABS: Troponin I Less than 0.010 ng/mL (< 0.028)
[2019-04-11] MEDS ORDERED: Melatonin 3 MG TAB PO PRN (15:57)
--- NOTE | 2019-04-11 16:33 | HP ---
PRIMARY CARE PHYSICIAN: Maikol Morrissey MD PRIMARY TRAINING AND DEVELOPMENT COORDINATOR: Dr. Jarred Mc. CHIEF COMPLAINT: Worsening generalized weakness, already with poor appetite. HISTORY OF PRESENT ILLNESS: Ms. Willis is a pleasant 89-year-old female with past medical history of chronic atrial fibrillation as well as chronic diastolic heart failure and severe deconditioning, who presented to the emergency room with above-mentioned complaints. History is mainly obtained by the patient's daughter present at the bedside. The patient is tired and feeling weak, but supplements the history when asked directly. Electronical medical records have been reviewed. The patient was recently admitted to our facility from 04/02/2019 up until 04/09/2019. During that hospitalization, she was treated for acute hypoxic respiratory failure secondary to left-sided bacterial pneumonia. At that time, she was found to have AFib with rapid ventricular response and Cardiology was consulted. She was started on diltiazem 240 mg and her metoprolol was increased from 75 to 100 mg p.o. b.i.d. The daughter reports that since her discharge, she has been feeling poorly. Yesterday, she just continued to lie in bed with poor appetite and generalized weakness and malaise. They could not get her up off the bed without help and then she was slumping forward. There was no nausea, vomiting, or abdominal pain. She had no fever or chills and did not complain of any chest pain. The daughter did feel that she was having a hard time catching her breath. They have also noticed that her bruises that she has suffered from a prior fall prior to hospitalization earlier this month could not have gotten bigger. There are no new falls, but the family is concerned that she might have developed new fractures in the back given her history of compression fractures and her inability to stand straight yesterday. The patient lives in assisted living facility. The patient's daughter denies any blood in her stools or any black-colored stool, which she has been monitoring herself. Upon presentation to the ER, her blood pressure was 102/58 and she was saturating 97% on room air with a temperature of 98. She was noticed to have significant bradycardia on and off with heart rate going down as low as in the high 30s to 40s. This was as per the ER physician, but in the ER records, it has been consistently above 50. Her EKG showed rate controlled chronic AFib, no acute changes. Her blood work showed mild elevation of creatinine to 1.82. BNP of 596. Sodium 146. Her hemoglobin has dropped to 8.7 from 11.1 on 04/07/2019. In the ER, she was treated with empiric antiemetics and is now being admitted for further evaluation and care of symptomatic bradycardia. PAST MEDICAL HISTORY: 1. Recent pneumonia with parapneumonic effusion earlier this month. 2. Chronic diastolic congestive heart failure. 3. Chronic atrial fibrillation, not on any anticoagulation. 4. History of GI bleed. 5. Peptic ulcer disease. 6. Deconditioning. 7. History of falls. 8. L1 chronic compression fracture. 9. Chronic kidney disease, stage 3 to 4. Past surgical history, family history, allergies, and social history are unchanged. Please see Dr. Rachid Waite's H and P dictated on 04/02/2019 for full details. ALLERGIES: NO KNOWN MEDICATION ALLERGIES. HOME MEDICATIONS: She was discharged on the following medications on 04/09/2019, by Dr. Simeon. New medications being; 1. Diltiazem 240 mg at bedtime. 2. Metoprolol 100 mg p.o. b.i.d. 3. Levaquin 250 mg p.o. daily. Her home medications include; 1. Sodium bicarbonate 325 b.i.d. 2. Ranitidine 150 b.i.d. 3. Potassium 10 mg every other day. 4. Aspirin 81 mg daily. 5. Levothyroxine 75 mcg daily. CODE STATUS: Full code, discussed with the patient and her daughter in detail. Her daughter is the medical power of business attorney. REVIEW OF SYSTEMS: A 14-point review of system is done. It is negative except for those mentioned in the history and physical. PHYSICAL EXAMINATION: VITAL SIGNS: Upon presentation, blood pressure 111/56, pulse of 56, respirations 22, temperature 97.8, and saturating 96% on room air. GENERAL: She is comfortably lying in bed straight and keeps her eyes closed, but she is awake, alert, oriented when woken up easily. HEENT: Mucous membrane is slightly dry. No oropharyngeal exudate or erythema. Head is normocephalic and atraumatic. Pupils are equal and reactive to the light and accommodation. NECK: Supple without any JVD or bruit. CHEST: Clear to auscultation without any wheezing, rales, or rhonchi. HEART: Rate rhythm is irregularly irregular. Slightly bradycardic. No murmurs. ABDOMEN: Soft, nontender, and nondistended. Positive bowel sound. She has a huge bruise on her entire right abdomen including the right side of the breast going to her back. There is no rebound, guarding, or rigidity in the abdomen. Bowel sounds are heard. EXTREMITIES: Free of any cyanosis, clubbing, or edema with varying stages of bruises in upper and lower extremities. NEUROLOGICAL: Nonfocal. SKIN: Free of any rashes or bruises. She does feel a little bit pale. PSYCHIATRIC: Normal affect. LABORATORY DATA: CBC shows WBCs 9.3, hemoglobin 8.7, platelet count of 191. She has 13% bands. PT, PTT, and INR unremarkable. Serum chemistries as per HPI. Cardiac enzymes are normal. Liver enzymes normal. Bicarb is normal at 28, potassium normal at 4.4. IMAGING DATA: Chest x-ray by my review shows no evidence of pleural effusion. She has persistent right basilar opacity from the recent pneumonia. A 12-lead EKG by my review shows atrial fibrillation with 51 beats per minute with incomplete right bundle-branch block and indeterminate ST-T wave changes. IMPRESSION AND PLAN: 1. Symptomatic bradycardia. The patient's calcium-channel lemuel will be interrupted. Her heart rate has been in her 50s and according to the chart review: She has had difficult time controlling her heart rate last admission. Because of this, we will restart her on beta-lemuel, which she has tolerated well in the past. We will start at 25 mg b.i.d. and increase the dose as tolerated. We will use p.r.n. antihypertensives. She will continue to follow up with Dr. Mc in the outpatient setting. They have not talked about cardioversion in the past. I am assuming because of her advanced age and this being an invasive procedure, requiring MANUELA prior to that. They will discuss this with Dr. Mc. 2. Acute blood loss anemia. The patient seems to have developed a hematoma, likely a rectus sheath hematoma or subcutaneous hematoma. We will monitor H and H every 6 hours and obtain a noncontrast CT of the abdomen and pelvis to rule out any internal bleeding. She is otherwise hemodynamically stable. We will avoid any blood thinner medications including aspirin for now. 3. Acute on chronic kidney disease. The patient was recently in the hospital and was seen by Nephrology, Dr. Rothman, for acute kidney injury and hyperkalemia. Suspect this is minor bump in the creatinine from norm. We will resuscitate her with very gentle IV fluids given her diastolic congestive heart failure history with 50 mL per hour of saline for one bag. Recheck in the morning and avoid any other nephrotoxic medications. 4. Back pain and history of compression fractures. We will repeat the x-ray of the thoracolumbar spine. The patient will be evaluated by OT, PT as well. We will institute fall precautions and use pain medications as needed. Currently, she is pain free. 5. History of chronic diastolic congestive heart failure. Clinically, dry on exam. Monitor on a daily basis for fluid status and hold Lasix for now given acute kidney injury. 6. Recent pneumonia. The patient has finished the course of her levofloxacin. Pneumonia is persisting on the chest x-ray, but clinically she has improved. 7. Chronic atrial fibrillation. We will rate control with beta-lemuel for now, given bradycardia and adjust as needed. No anticoagulation given advanced age and fall risk. 8. Code status, full code discussed with the patient. 9. Add SCDs for deep venous thrombosis prophylaxis and Pepcid for gastrointestinal prophylaxis. 10. Reconcile home medications. DISPOSITION: Ms. Willis is currently being admitted under observation status for symptomatic bradycardia, likely iatrogenic from calcium-channel lemuel in addition to beta-lemuel. Estimated length of stay at this time is less than two midnights. Further management will depend upon her clinical course. Job ID: [id number]
--- NOTE | 2019-04-11 18:08 | CT ---
CT Abdomen Pelvis WO Con History: Hematoma Comparison: CT April 01, 2019 Findings: Large layering right pleural effusion. Heart size is enlarged. Moderate third spacing of fluid. No dilated loops of large or small bowel. Moderate diverticular dise ase sigmoid colon without active current inflammation. Heart size is enlarged. No significant free fluid within the pelvis. Mild thickening of the rectum. Adrenal glands unremarkable. No hydronephrosis. Aorta is mildly tortuous without aneurysmal dilatatio n. Multiple renal hypodensities incompletely evaluated on this examination. Obturator rings are intact. The femoral heads and necks are intact. SI joints are intact. Similar appearance of the L1 compression deformity with retropulsion. Multilevel degenerative disc sp sanaz disease throughout the lumbar spine. Impression: 1. Large layering right pleural effusion. 2. New from the comparison examination is extensive third spacing of fluid. 3. No evidence for bowel obstruction. 4. Similar appearance of the L1 compression deformity. 5. Hypodensity inferior pole right kidney not definitively a cyst. Dedicated renal protocol CT or MRI and 6 months recommended.
[2019-04-11 19:10] LABS: Troponin I 0.019 ng/mL (< 0.028)
[2019-04-11] MEDS: Metoprolol Tartrate 25 MG TAB PO SCH (21:10)
[2019-04-11] MEDS: Famotidine 20 MG TAB PO SCH (21:10)
[2019-04-11 23:11] LABS: Hemoglobin 8.1 g/dL (12.0-16.0)
[2019-04-12 04:29] LABS: Anion Gap 12 mmol/L (10-20); BUN (Urea Nitrogen) 32 mg/dL (9.8-20.1); Calc. Creatinine Clearance 27 mL/min (70-130); Calcium 8.1 mg/dL (7.8-10.44); Carbon Dioxide 25 mmol/L (23-31); Chloride 107 mmol/L (98-107); Estimated GFR-MDRD 35; Glucose 83 mg/dL (83-110); Potassium 4.7 mmol/L (3.5-5.1); Sodium 139 mmol/L (136-145)
[2019-04-12] MEDS: Levothyroxine Sodium 75 MCG TAB PO SCH (05:20)
[2019-04-12 07:17] LABS: #Eosinphils 0.1 thou/uL (0.0-0.7); #Lymphocytes 0.8 thou/uL (1.20-3.40); #Monocytes 0.8 thou/uL (0.11-0.59); #Neutrophils 7.3 thou/uL (1.40-6.50); %Basophils 0.1 % (0.0-1.0); %Eosinophils 1.2 % (0.0-10.0); %Monocytes 9.2 % (0.0-10.0); %Neutrophils 80.6 % (42.0-75.0); Hemoglobin 8.9 g/dL (12.0-16.0); Mean Corpuscular HGB CONC 30.9 g/dL (32.0-36.0); Mean Corpuscular Hemoglobin 35.5 pg (27.0-31.0); Mean Platelet Volume 8.3 fL (7.4-10.4); Platelet Count 188 thou/uL (130-400); RBC Distribution Width 15.3 % (11.5-14.5); Red Blood Cell (RBC) Count 2.51 mill/uL (4.20-5.40); White Blood Cell (WBC) Count 9.1 thou/uL (4.8-10.8)
[2019-04-12] MEDS: Famotidine 20 MG TAB PO SCH ×2 (09:14→22:44)
[2019-04-12] MEDS: Metoprolol Tartrate 25 MG TAB PO SCH (09:14)
--- NOTE | 2019-04-12 10:29 | PDOC.PN ---
- Subjective Encounter Start Date: 04/12/19 Encounter Start Time: 12:20 Subjective: Patient feels depressed. No energy. No SOB. No pain. - Objective Resuscitation Status - Order Detail: 04/11/19 15:28 Resuscitation Status Routine Resuscitation Status: FULL: Full Resuscitation Discussed with: discussed with patient Vital Signs & Weight: Vital Signs (12 hours) Temp Pulse Resp BP Pulse Ox 04/12/19 07:44 97.3 F L 87 14 133/72 96 04/12/19 04:08 97.6 F 84 18 143/69 H 95 Weight Weight 136 lb 6.4 oz I&O: 04/11/19 04/12/19 04/13/19 06:59 06:59 06:59 Intake Total 855 Balance 855 Result Diagrams: 04/12/19 06:46 04/12/19 03:58 Phys Exam - Physical Examination Constitutional: NAD HEENT: moist MMs Respiratory: no wheezing, no rales, no rhonchi Cardiovascular: irregular 3/6 systolic murmur Gastrointestinal: soft, positive bowel sounds Musculoskeletal: no edema Neurological: non-focal Deviation from normal: depressed affect Dx/Plan (1) CHF (congestive heart failure) Code(s): I50.9 - HEART FAILURE, UNSPECIFIED Status: Chronic Qualifiers: Heart failure type: diastolic Comment: resuming diuretics, large pleural effusion, likely from fluid resuscitation for renal failure over last hospitalization (2) Acute on chronic renal failure Code(s): N17.9 - ACUTE KIDNEY FAILURE, UNSPECIFIED; N18.9 - CHRONIC KIDNEY DISEASE, UNSPECIFIED Status: Acute Comment: creatinine now down significantly, will stop IV fluids, resume diuretics (3) Bradycardia Code(s): R00.1 - BRADYCARDIA, UNSPECIFIED Status: Resolved Comment: due to Metoprolol and Diltiazem, stopped Diltiazem and resuming home Metoprolol (4) Atrial fibrillation Code(s): I48.91 - UNSPECIFIED ATRIAL FIBRILLATION Status: Chronic Qualifiers: Atrial fibrillation type: chronic Qualified Code(s): I48.2 - Chronic atrial fibrillation (5) Compression fracture of L1 lumbar vertebra Code(s): S32.010A - WEDGE COMPRESSION FRACTURE OF FIRST LUMBAR VERTEBRA, INIT Status: Chronic Comment: Age undetermined, no new fx on repeat CT (6) Anemia Code(s): D64.9 - ANEMIA, UNSPECIFIED Status: Chronic Comment: drop from last admit likely dilutional due to IV fluids, no evidence acute blood loss or significant hematoma at this time, resuming ASA - Plan cont current plan of care, PT/OT rehab eval * . - Discharge Day Encounter end time: 12:30
--- NOTE | 2019-04-12 16:26 | RAD ---
EXAM: Single view of the chest HISTORY: Respiratory distress COMPARISON: 04/11/2019 FINDINGS: Single view of the chest shows an enlarged but stable cardiomediastinal silhouette. There is an enlarging moderate to large right pleural effusion with adjacent atelectasis. Degenerative changes are seen in the spine. IMPRESSION: Enlarging right pleural effusion with adjacent atelectasis
[2019-04-12] MEDS: Loratadine 10 MG TAB PO SCH (22:45)
[2019-04-12] MEDS: Metoprolol Tartrate 100 MG TAB PO SCH (22:45)
[2019-04-12] MEDS: Sodium Bicarbonate Tab 325 MG TAB PO SCH (22:45)
[2019-04-13] MEDS: Levothyroxine Sodium 75 MCG TAB PO SCH (06:08)
[2019-04-13] MEDS ORDERED: LUTEIN PO SCH (09:00)
[2019-04-13] MEDS ORDERED: ZINC OX PO SCH (09:00)
[2019-04-13] MEDS ORDERED: [UNRECOGNIZED DRUG - OTHER] PO SCH (09:00)
[2019-04-13] MEDS ORDERED: Furosemide 40 MG TAB PO SCH (09:00)
--- NOTE | 2019-04-13 09:26 | PDOC.PN ---
- Subjective Encounter Start Date: 04/13/19 Encounter Start Time: 12:40 Subjective: Patient with water aspiration event yesterday. CXR with worse pleural effus -: but no evidence pneumonia. Hypoxia initially now improving. Patient denies -: significant SOB on oxygen. No pain. - Objective Resuscitation Status - Order Detail: 04/11/19 15:28 Resuscitation Status Routine Resuscitation Status: FULL: Full Resuscitation Discussed with: discussed with patient MAR Reviewed: Yes Vital Signs & Weight: Vital Signs (12 hours) Temp Pulse Resp BP Pulse Ox 04/13/19 03:20 98.6 F 103 H 20 114/66 100 Weight Admit Weight 136 lb Weight 135 lb 4.8 oz I&O: 04/12/19 04/13/19 04/14/19 06:59 06:59 06:59 Intake Total 855 480 Balance 855 480 Result Diagrams: 04/13/19 09:33 04/12/19 03:58 Phys Exam - Physical Examination Constitutional: NAD HEENT: moist MMs Respiratory: no wheezing, no rales, no rhonchi decreased bs in right base Cardiovascular: irregular mild tachycardia Gastrointestinal: soft, positive bowel sounds Neurological: non-focal Deviation from normal: depressed affect Dx/Plan (1) CHF (congestive heart failure) Code(s): I50.9 - HEART FAILURE, UNSPECIFIED Status: Chronic Qualifiers: Heart failure type: diastolic Comment: resuming diuretics, large pleural effusion, likely from fluid resuscitation for renal failure over last hospitalization (2) Acute on chronic renal failure Code(s): N17.9 - ACUTE KIDNEY FAILURE, UNSPECIFIED; N18.9 - CHRONIC KIDNEY DISEASE, UNSPECIFIED Status: Acute Comment: creatinine now down significantly, will stop IV fluids, resume diuretics (3) Bradycardia Code(s): R00.1 - BRADYCARDIA, UNSPECIFIED Status: Resolved Comment: due to Metoprolol and Diltiazem, stopped Diltiazem and resuming home Metoprolol, now running a bit tachycardic, will ask cardiology for their imput (4) Atrial fibrillation Code(s): I48.91 - UNSPECIFIED ATRIAL FIBRILLATION Status: Chronic Qualifiers: Atrial fibrillation type: chronic Qualified Code(s): I48.2 - Chronic atrial fibrillation (5) Compression fracture of L1 lumbar vertebra Code(s): S32.010A - WEDGE COMPRESSION FRACTURE OF FIRST LUMBAR VERTEBRA, INIT Status: Chronic Comment: Age undetermined, no new fx on repeat CT (6) Anemia Code(s): D64.9 - ANEMIA, UNSPECIFIED Status: Chronic Comment: drop from last admit likely dilutional due to IV fluids, no evidence acute blood loss or significant hematoma at this time, resuming ASA (7) Aspiration into airway Code(s): T17.908A - UNSP FB IN RESP TRACT, PART UNSP CAUSING OTH INJURY, INIT Status: Acute Comment: patient choked on water yesterday, some hypoxia initially, better now but still on O2, enlarging pleural effusion, check CBC for any evidence PNA, speech therapy evaluation recommends thickened liquids but still with aspiration risk due to dementia unable to remember safe swallowing - Plan cont current plan of care, PT/OT, speech therapy * . - Discharge Day Encounter end time: 12:50
[2019-04-13 09:45] LABS: #Lymphocytes 0.6 thou/uL (1.20-3.40); #Monocytes 0.9 thou/uL (0.11-0.59); #Neutrophils 9.7 thou/uL (1.40-6.50); %Eosinophils 0.2 % (0.0-10.0); %Lymphocytes 5.5 % (21.0-51.0); %Monocytes 8.2 % (0.0-10.0); %Neutrophils 86.1 % (42.0-75.0); Hemoglobin 9.3 g/dL (12.0-16.0); Mean Corpuscular HGB CONC 30.9 g/dL (32.0-36.0); Mean Corpuscular Hemoglobin 35.7 pg (27.0-31.0); Mean Platelet Volume 7.5 fL (7.4-10.4); Platelet Count 223 thou/uL (130-400); RBC Distribution Width 15.2 % (11.5-14.5); White Blood Cell (WBC) Count 11.2 thou/uL (4.8-10.8)
[2019-04-13] MEDS: Famotidine 20 MG TAB PO SCH ×3 (10:58→22:01)
[2019-04-13] MEDS: Aspirin 81 mg Enteric Coated Tablet PO SCH (10:58)
[2019-04-13] MEDS: Vit A,C & E/Lutein/Minerals Tablet PO SCH (10:58)
[2019-04-13] MEDS: Metoprolol Tartrate 100 MG TAB PO SCH ×2 (10:58→21:59)
[2019-04-13] MEDS: Sodium Bicarbonate Tab 325 MG TAB PO SCH ×2 (10:58→21:59)
--- NOTE | 2019-04-13 12:49 | CON ---
DATE OF CONSULTATION: HISTORY OF PRESENT ILLNESS: The patient is an 89-year-old woman, who presents with recurrent dyspnea, weakness. The patient was seen here a week ago with pneumonia. She also has chronic atrial fibrillation. She is not an appropriate patient for anticoagulation secondary to a history of GI hemorrhage. The patient was in the hospital for several days and treated with antibiotics, she went home. She presented back to the emergency room with dyspnea and weakness. The patient is unable to give a very coherent history. PAST MEDICAL HISTORY: 1. Atrial fibrillation. 2. Hypertension. 3. GI hemorrhage. 4. History of several falls. 5. Renal insufficiency. 6. History of pneumonia. PAST SURGICAL HISTORY: Hysterectomy. MEDICATIONS: See nursing list. ALLERGIES: NONE. FAMILY HISTORY: No strong family history of heart disease. SOCIAL HISTORY: Nonsmoker. PHYSICAL EXAMINATION: GENERAL: This is an ill-appearing woman. VITAL SIGNS: Blood pressure of 114/66 NECK: Showed no jugular venous distention. LUNGS: Have crackles in both lung sheikh. HEART: Irregular rate and rhythm. Normal S1 and S2 with a 3/6 systolic murmur. ABDOMEN: Nondistended. EXTREMITIES: Showed trace edema. VASCULAR: Radial pulses 2+. LABORATORY DATA: White blood cell count 11.2, hemoglobin 9.3, hematocrit 30.0, and platelets were 223. Her sodium is 139, potassium 4.7, chloride 107, bicarbonate 25, BUN 32, creatinine 1.1. Troponin less than 0.019. IMAGING STUDIES: Her chest x-ray showed cardiomegaly with a right-sided effusion. The pulmonary infiltrate appears to have resolved. EKG revealed atrial fibrillation with a slow ventricular response, Q-wave suggestive of previous septal infarct. IMPRESSION: 1. Congestive heart failure. 2. Recent pneumonia. 3. Large pleural effusion. 4. Chronic atrial fibrillation. 5. History of gastrointestinal hemorrhage. 6. Anemia. 7. Renal insufficiency. PLAN: This patient presented with congestive heart failure and a recent pneumonia. She has had atrial fibrillation with a slow ventricular response on admission. She had been recently started on Cardizem. From a cardiac standpoint, her heart rate has been reasonably well controlled after discontinuing Cardizem. Her heart rate is no longer slow. At this time, we will continue to observe the patient. Would recommend increasing the dose of her Lasix. We will follow this patient with you through her hospitalization. Job ID: [id number]
[2019-04-13] MEDS: Furosemide 40 MG/4 ML VIAL SLOW IVP SCH (14:13)
[2019-04-13] MEDS: Loratadine 10 MG TAB PO SCH (21:59)
[2019-04-14] MEDS ORDERED: Sodium Chloride 0.9% 10 ML ONE (05:39)
[2019-04-14] MEDS: Furosemide 40 MG/4 ML VIAL SLOW IVP SCH ×2 (06:00→16:16)
[2019-04-14] MEDS: Levothyroxine Sodium 75 MCG TAB PO SCH (06:01)
--- NOTE | 2019-04-14 07:46 | RAD ---
EXAM: Single view of the chest HISTORY: Pleural effusion COMPARISON: 04/12/2019 FINDINGS: Single view of the chest shows an enlarged but stable cardiomediastinal silhouette. A mode rate to large right pleural effusion is again seen, unchanged. No left-sided infiltrates or pleural effusions are seen. Degenerative changes are seen in the spine. IMPRESSION: Stable moderate to large right pleural effusion
--- NOTE | 2019-04-14 08:13 | PDOC.PN ---
- Subjective Encounter Start Date: 04/14/19 Encounter Start Time: 10:20 Subjective: Patient a bit more perky today. Stable on 2L NC O2. Weak with PT. Will need -: rehab. - Objective Resuscitation Status - Order Detail: 04/11/19 15:28 Resuscitation Status Routine Resuscitation Status: FULL: Full Resuscitation Discussed with: discussed with patient SAGAR Reviewed: Yes Vital Signs & Weight: Vital Signs (12 hours) Temp Pulse Resp BP Pulse Ox 04/14/19 03:28 98 F 92 20 132/81 94 L Weight Admit Weight 136 lb Weight 129 lb 11.2 oz I&O: 04/13/19 04/14/19 04/15/19 06:59 06:59 06:59 Intake Total 480 774 Output Total 1630 Balance 480 -856 Result Diagrams: 04/14/19 09:15 04/14/19 09:15 Phys Exam - Physical Examination Constitutional: NAD HEENT: moist MMs Respiratory: no rales, no rhonchi decreased BS in right base Cardiovascular: irregular mild tachycardia Gastrointestinal: soft, positive bowel sounds Neurological: non-focal, moves all 4 limbs Psychiatric: normal affect Dx/Plan (1) CHF (congestive heart failure) Code(s): I50.9 - HEART FAILURE, UNSPECIFIED Status: Chronic Qualifiers: Heart failure type: diastolic Comment: resuming diuretics, large pleural effusion, likely from fluid resuscitation for renal failure over last hospitalization, has required thoracentesis in the past (2) Acute on chronic renal failure Code(s): N17.9 - ACUTE KIDNEY FAILURE, UNSPECIFIED; N18.9 - CHRONIC KIDNEY DISEASE, UNSPECIFIED Status: Acute Comment: creatinine now down significantly, stopped IV fluids, resumed diuretics (3) Bradycardia Code(s): R00.1 - BRADYCARDIA, UNSPECIFIED Status: Resolved Comment: due to Metoprolol and Diltiazem, stopped Diltiazem and resuming home Metoprolol, now running a bit tachycardic, will ask cardiology for their imput (4) Atrial fibrillation Code(s): I48.91 - UNSPECIFIED ATRIAL FIBRILLATION Status: Chronic Qualifiers: Atrial fibrillation type: chronic Qualified Code(s): I48.2 - Chronic atrial fibrillation (5) Compression fracture of L1 lumbar vertebra Code(s): S32.010A - WEDGE COMPRESSION FRACTURE OF FIRST LUMBAR VERTEBRA, INIT Status: Chronic Comment: Age undetermined, no new fx on repeat CT (6) Anemia Code(s): D64.9 - ANEMIA, UNSPECIFIED Status: Chronic Comment: drop from last admit likely dilutional due to IV fluids, no evidence acute blood loss or significant hematoma at this time, resuming ASA (7) Aspiration into airway Code(s): T17.908A - UNSP FB IN RESP TRACT, PART UNSP CAUSING OTH INJURY, INIT Status: Acute Comment: patient choked on water 04/12/19, some hypoxia initially , better now but still on O2, enlarging pleural effusion, check CBC for any evidence PNA, speech therapy evaluation recommends thickened liquids but still with aspiration risk due to dementia unable to remember safe swallowing - Plan cont current plan of care, PT/OT, DVT proph w/SCDs * . - Discharge Day Encounter end time: 10:30
[2019-04-14 09:20] LABS: Hemoglobin 10.2 g/dL (12.0-16.0); Mean Corpuscular Hemoglobin 35.2 pg (27.0-31.0); Mean Platelet Volume 7.2 fL (7.4-10.4); Platelet Count 270 thou/uL (130-400); White Blood Cell (WBC) Count 11.1 thou/uL (4.8-10.8)
[2019-04-14 09:32] LABS: Anion Gap 8 mmol/L (10-20); BUN (Urea Nitrogen) 20 mg/dL (9.8-20.1); Calc. Creatinine Clearance 28 mL/min (70-130); Calcium 8.8 mg/dL (7.8-10.44); Carbon Dioxide 35 mmol/L (23-31); Chloride 100 mmol/L (98-107); Estimated GFR-MDRD 40; Glucose 76 mg/dL (83-110); Potassium 4.1 mmol/L (3.5-5.1); Sodium 139 mmol/L (136-145)
[2019-04-14] MEDS: Aspirin 81 mg Enteric Coated Tablet PO SCH (09:36)
[2019-04-14] MEDS: Sodium Bicarbonate Tab 325 MG TAB PO SCH ×2 (09:36→20:23)
[2019-04-14] MEDS: Metoprolol Tartrate 100 MG TAB PO SCH ×2 (09:36→20:24)
[2019-04-14] MEDS: Famotidine 20 MG TAB PO SCH ×2 (09:37→20:24)
[2019-04-14] MEDS: Vit A,C & E/Lutein/Minerals Tablet PO SCH (10:51)
[2019-04-14 13:11] VITALS: BMI 25.3
[2019-04-14] MEDS: Loratadine 10 MG TAB PO SCH (20:24)
[2019-04-15] MEDS ORDERED: Sodium Chloride 0.9% 10 ML ONE (05:11)
[2019-04-15] MEDS: Furosemide 40 MG/4 ML VIAL SLOW IVP SCH ×2 (05:38→15:09)
[2019-04-15] MEDS: Levothyroxine Sodium 75 MCG TAB PO SCH (05:38)
--- NOTE | 2019-04-15 08:56 | PDOC.PN ---
- Subjective Encounter Start Date: 04/15/19 Encounter Start Time: 10:40 Subjective: Patient smiling today, feeling a bit better. SOB improved some. -: No other complaints. No cough. - Objective Resuscitation Status - Order Detail: 04/14/19 17:43 Resuscitation Status Routine Resuscitation Status: DNAR: NO Resuscitation Discussed with: Daughter and AMELIA KEITH Reviewed: Yes Vital Signs & Weight: Vital Signs (12 hours) Temp Pulse Resp BP Pulse Ox 04/15/19 08:00 97.7 F 109 H 16 137/70 96 04/15/19 03:10 99.1 F 106 H 20 140/77 94 L 04/15/19 00:00 18 Weight Admit Weight 136 lb Weight 125 lb I&O: 04/14/19 04/15/19 04/16/19 06:59 06:59 06:59 Intake Total 774 960 64 Output Total 1630 1420 200 Balance -856 -460 -136 Result Diagrams: 04/14/19 09:15 04/14/19 09:15 Phys Exam - Physical Examination Constitutional: NAD HEENT: moist MMs Respiratory: no wheezing, no rales, no rhonchi on 2L NC Cardiovascular: irregular a bit tachycardic Gastrointestinal: soft, positive bowel sounds Neurological: non-focal, moves all 4 limbs Psychiatric: normal affect Dx/Plan (1) CHF (congestive heart failure) Code(s): I50.9 - HEART FAILURE, UNSPECIFIED Status: Chronic Qualifiers: Heart failure type: diastolic Comment: resuming diuretics, large pleural effusion, likely from fluid resuscitation for renal failure over last hospitalization, has required thoracentesis in the past (2) Acute on chronic renal failure Code(s): N17.9 - ACUTE KIDNEY FAILURE, UNSPECIFIED; N18.9 - CHRONIC KIDNEY DISEASE, UNSPECIFIED Status: Acute Comment: creatinine now down significantly, stopped IV fluids, resumed diuretics (3) Bradycardia Code(s): R00.1 - BRADYCARDIA, UNSPECIFIED Status: Resolved Comment: due to Metoprolol and Diltiazem, stopped Diltiazem and resuming home Metoprolol, now running a bit tachycardic, spoke with Dr. Strong and he recommended resuming a very low dose CCB. (4) Atrial fibrillation Code(s): I48.91 - UNSPECIFIED ATRIAL FIBRILLATION Status: Chronic Qualifiers: Atrial fibrillation type: chronic Qualified Code(s): I48.2 - Chronic atrial fibrillation (5) Compression fracture of L1 lumbar vertebra Code(s): S32.010A - WEDGE COMPRESSION FRACTURE OF FIRST LUMBAR VERTEBRA, INIT Status: Chronic Comment: Age undetermined, no new fx on repeat CT (6) Anemia Code(s): D64.9 - ANEMIA, UNSPECIFIED Status: Chronic Comment: drop from last admit likely dilutional due to IV fluids, no evidence acute blood loss or significant hematoma at this time, resuming ASA (7) Aspiration into airway Code(s): T17.908A - UNSP FB IN RESP TRACT, PART UNSP CAUSING OTH INJURY, INIT Status: Acute Comment: patient choked on water 04/12/19, some hypoxia initially , better now but still on O2, enlarging pleural effusion, check CBC for any evidence PNA, speech therapy evaluation recommends thickened liquids but still with aspiration risk due to dementia unable to remember safe swallowing - Plan cont current plan of care, PT/OT likely to rehab tomorrow * . - Discharge Day Encounter end time: 10:50
[2019-04-15] MEDS: Sodium Bicarbonate Tab 325 MG TAB PO SCH ×2 (09:06→20:59)
[2019-04-15] MEDS: Vit A,C & E/Lutein/Minerals Tablet PO SCH (09:06)
[2019-04-15] MEDS: Aspirin 81 mg Enteric Coated Tablet PO SCH (09:06)
[2019-04-15] MEDS: Famotidine 20 MG TAB PO SCH ×2 (09:07→20:59)
[2019-04-15] MEDS: Metoprolol Tartrate 100 MG TAB PO SCH ×2 (09:07→20:59)
--- NOTE | 2019-04-15 13:55 | PQF ---
BRADLEY DOWLING RYAN ANDREW MD [id number] CLINICAL DOCUMENTATION IMPROVEMENT CLARIFICATION FORM: ICD-10 Updated PLEASE DO AN ADDENDUM TO THE PROGRESS NOTE WITH ANY DOCUMENTATION UPDATES OR ADDITIONS AND CARRY THROUGH TO DC SUMMARY. THANK YOU. DATE: 04/15/19 ATTN:DR. Maryann KAUR Please exercise your independent, professional judgment in responding to the clarification form. Clinical indicators are provided on the bottom of this form for your review. Please check appropriate box(s): DIASTOLIC HEART FAILURE: B. ACUITY [ X ] Acute on Chronic [ ] Chronic [ ] Other diagnosis [ ] Unable to determine In addition, please specify: Present on Admission (POA): [ X ] Yes [ ] No [ ] Unable to determine For continuity of documentation, please document condition throughout progress notes and discharge summary. Thank You. CLINICAL INDICATORS - SIGNS / SYMPTOMS / LABS 04/11 BNP 596.3 04/11 H & P ([facility]) IMPRESSION AND PLAN: 5) HISTORY OF CHRONIC DIASTOLIC CHF. CLINICALLY DRY ON EXAM. MONITOR ON DAILY BASIS FOR FLUID STATUS AND HOLD LASIX FOR NOW GIVEN FABBY. 04/12 PN (VINCENT) 1)DIASTOLIC CHF / CHRONIC, RESUMING DIURETICS, LARGE PLEURAL EFFUSION, LIKELY FROM FLUID RESUSCITATION FOR RENAL FAILURE OVER LAST HOSPITALIZATION. 04/13 CONSULT (HANNAH) IMPRESSION : 1) CONGESTIVE HEART FAILURE, WOULD RECOMMEND INCREASING THE DOSE OF LASIX RISK: HX OF CHRONIC DIASTOLIC CONGESTIVE HEART FAILURE (H & P) JOS[facility] LU[facility] ADVANCED AGE ( 89) TREATMENTS: CARDIOLOGY CONSULT LASIX IVP (APRIL 15) CONTINUOUS CARDIAC MONITORING THANK YOU ! EDA (This form is maintained as a part of the permanent medical record) 2014 [employer]. All Rights Reserved [email or web address] [phone] MTDD
--- NOTE | 2019-04-15 14:18 | PQF ---
BRADLEY DOWLING RYAN ANDREW MD [id number] CLINICAL DOCUMENTATION IMPROVEMENT CLARIFICATION FORM: ICD-10 Updated PLEASE DO AN ADDENDUM TO THE PROGRESS NOTE WITH ANY DOCUMENTATION UPDATES OR ADDITIONS AND CARRY THROUGH TO DC SUMMARY. THANK YOU. DATE: 04/15/19 ATTN:DR. Maryann KAUR Please exercise your independent, professional judgment in responding to the clarification form. Clinical indicators are provided on the bottom of this form for your review. Please check appropriate box(s): [ ] Acute Renal Failure (ARF) / Acute Kidney Injury (FABBY) [ X ] Acute on Chronic Renal Failure please specify Stage of CKD ___3 (see below) [ ] CKD without ARF/FABBY please specify Stage of CKD [ ] Other diagnosis [ ] Unable to determine In addition, please specify: Present on Admission (POA): [ X ] Yes [ ] No [ ] Unable to determine National Kidney Foundation Guidelines for CKD Staging Stage I Kidney damage with normal or increased GFRGFR > 90 Stage IIKidney damage with mildly decreased GFRGFR 60-89 Stage III Kidney damage with moderately decreased GFRGFR 30-59 Stage IVKidney damage with severely decreased GFRGFR 16-29 Stage VKidney failureGFR<15 ESRDEnd Stage Renal DiseaseOn dialysis Acute Renal Failure/Acute Kidney Failure defined as: Increases in SCr by (>) 0.3 mg/dl within 48 hours OR- Increases in SCr by (>) 1.5 times baseline, known or presumed to have occurred within the prior 7 days OR- Urine volume < 0.5 ml/kg/hour for 6 hours (KDIGO supplement 2012 for RIFLE/MELISSA criteria) For continuity of documentation, please document condition throughout progress notes and discharge summary. Thank You. CLINICAL INDICATORS - SIGNS / SYMPTOMS / LABS 04/11 BUN 42, 32, 20 04/11 CRATININE 1.82 1.40 1.27 04/11 H & P ([facility]) IMPRESSION AND PLAN: 3) ACUTE ON CHRONIC KIDNEY DISEASE. 04/12 PN (VINCENT) DX/PLAN : 2) ACUTE ON CHRONIC RENAL FAILURE, CKD, CREATININE NOW DOWN SIGNIFICANTLY, WILL STOP IV FLUIDS, RESUME DIURETICS 04/13 CONSULT (HANNAH) IMPRESSION: 7) RENAL INSUFFICIENCY RISK: HX OF CKD STAGE 3 TO 4 (H & P ) J[facility] RECENNT HOSPITALIZATION W/ FABBY/HYPERKALEMIA( (H & P ) J[facility] TREATMENTS: SERIAL LAB IVF ON HOLD DIURETICS HELD THANK YOU ! EDA (This form is maintained as a part of the permanent medical record) 2014 [employer] All Rights Reserved [email or web address] [phone] [email or web address]
[2019-04-15] MEDS ORDERED: Diltiazem HCl SR 60 mg Capsule PO SCH (17:00)
[2019-04-15] MEDS: Loratadine 10 MG TAB PO SCH (20:59)
[2019-04-16] MEDS: Furosemide 40 MG/4 ML VIAL SLOW IVP SCH ×2 (05:55→15:25)
[2019-04-16] MEDS: Levothyroxine Sodium 75 MCG TAB PO SCH (06:03)
[2019-04-16 06:42] LABS: #Lymphocytes 0.7 thou/uL (1.20-3.40); #Monocytes 0.9 thou/uL (0.11-0.59); #Neutrophils 5.5 thou/uL (1.40-6.50); %Basophils 0.1 % (0.0-1.0); %Eosinophils 0.6 % (0.0-10.0); %Lymphocytes 10.2 % (21.0-51.0); %Monocytes 12.9 % (0.0-10.0); %Neutrophils 76.2 % (42.0-75.0); Hemoglobin 9.5 g/dL (12.0-16.0); Mean Corpuscular HGB CONC 30.5 g/dL (32.0-36.0); Mean Corpuscular Hemoglobin 34.8 pg (27.0-31.0); Platelet Count 275 thou/uL (130-400); RBC Distribution Width 14.8 % (11.5-14.5); Red Blood Cell (RBC) Count 2.73 mill/uL (4.20-5.40); White Blood Cell (WBC) Count 7.2 thou/uL (4.8-10.8)
[2019-04-16 06:59] LABS: Anion Gap 11 mmol/L (10-20); BUN (Urea Nitrogen) 24 mg/dL (9.8-20.1); Calc. Creatinine Clearance 29 mL/min (70-130); Calcium 8.5 mg/dL (7.8-10.44); Carbon Dioxide 36 mmol/L (23-31); Chloride 97 mmol/L (98-107); Estimated GFR-MDRD 44; Glucose 78 mg/dL (83-110); Potassium 3.7 mmol/L (3.5-5.1); Sodium 140 mmol/L (136-145)
--- NOTE | 2019-04-16 09:42 | EKG ---
Test Reason : EAKNESS Blood Pressure : / mmHG Vent. Rate : 051 BPM Atrial Rate : 062 BPM P-R Int : 000 ms QRS Dur : 092 ms QT Int : 476 ms P-R-T Axes : 000 -37 163 degrees QTc Int : 438 ms Atrial fibrillation with slow ventricular response Left axis deviation Incomplete right bundle branch block Minimal voltage criteria for LVH, may be normal variant Septal infarct , age undetermined Abnormal ECG Confirmed by XENA BURTON, SUMAN ([id number]), greeting card editor JORDNA MCPHERSON ([id number]) on 04/16/2019 9:41:41 AM Referred By: Confirmed By:SUMAN MCCALLUM MD
[2019-04-16] MEDS: Aspirin 81 mg Enteric Coated Tablet PO SCH (10:01)
[2019-04-16] MEDS: Sodium Bicarbonate Tab 325 MG TAB PO SCH (10:01)
[2019-04-16] MEDS: Metoprolol Tartrate 100 MG TAB PO SCH ×2 (10:01→10:16)
[2019-04-16] MEDS: Famotidine 20 MG TAB PO SCH (10:01)
[2019-04-16] MEDS: Vit A,C & E/Lutein/Minerals Tablet PO SCH (10:01)
--- NOTE | 2019-04-16 11:31 | PDOC.PN ---
- Subjective Encounter Start Date: 04/16/19 Encounter Start Time: 09:15 -: old records requested/rev Patient seen and examined. No new complaints. No overnight events - Objective Resuscitation Status - Order Detail: 04/14/19 17:43 Resuscitation Status Routine Resuscitation Status: DNAR: NO Resuscitation Discussed with: Daughter and AMELIA KEITH Reviewed: Yes Vital Signs & Weight: Vital Signs (12 hours) Temp Pulse Resp BP BP BP Pulse Ox 04/16/19 08:00 98.6 F 103 H 16 124/71 98 04/16/19 04:00 97.4 F L 04/16/19 03:49 96.4 F L 94 18 127/78 98 04/16/19 00:00 80 124/58 L Weight Admit Weight 136 lb Weight 125 lb I&O: 04/15/19 04/16/19 04/17/19 06:59 06:59 06:59 Intake Total 960 604 200 Output Total 1420 1100 500 Balance -460 -496 -300 Result Diagrams: 04/16/19 06:07 04/16/19 06:07 EKG Reviewed by me: Yes Phys Exam - Physical Examination Constitutional: NAD HEENT: PERRLA, moist MMs, sclera anicteric Neck: no JVD, supple Respiratory: no wheezing, no rales, no rhonchi Cardiovascular: no significant murmur, irregular Gastrointestinal: soft, non-tender, no distention, positive bowel sounds Musculoskeletal: no edema, pulses present Neurological: non-focal, normal sensation Lymphatic: no nodes Psychiatric: normal affect Skin: no rash, normal turgor Dx/Plan (1) HTN (hypertension) Code(s): I10 - ESSENTIAL (PRIMARY) HYPERTENSION Status: Chronic Comment: (2) Hypothyroidism Code(s): E03.9 - HYPOTHYROIDISM, UNSPECIFIED Status: Chronic Comment: (3) Compression fracture of L1 lumbar vertebra Code(s): S32.010A - WEDGE COMPRESSION FRACTURE OF FIRST LUMBAR VERTEBRA, INIT Status: Chronic Comment: (4) Atrial fibrillation Code(s): I48.91 - UNSPECIFIED ATRIAL FIBRILLATION Status: Chronic Qualifiers: Atrial fibrillation type: chronic Qualified Code(s): I48.2 - Chronic atrial fibrillation (5) Bradycardia Code(s): R00.1 - BRADYCARDIA, UNSPECIFIED Status: Resolved Comment: (6) CHF (congestive heart failure) Code(s): I50.9 - HEART FAILURE, UNSPECIFIED Status: Chronic Qualifiers: Heart failure type: diastolic Comment: - Plan cont current plan of care, social service assistant * medication reviewed as below * symptomatic treatment * stable for discharge * see discharge nato. Review of Systems - Review of Systems Other: not reliable due to underlying cognitive condition - Medications/Allergies Allergies/Adverse Reactions: Allergies Allergy/AdvReac Type Severity Reaction Status Date / Time No Known Drug Allergies Allergy Verified 04/02/19 01:12 Medications: Current Medications Acetaminophen (Tylenol) 650 mg PO Q4H PRN PRN Reason: Headache/Fever/Mild Pain (1-3) Last Admin: 04/15/19 15:09 Dose: 650 mg Albuterol/Ipratropium (Duoneb) 3 ml NEB [id number] PRN PRN Reason: SOB &/or Wheezing Last Admin: 04/12/19 16:00 Dose: 3 ml Artificial Tears (Tears Naturale) 2 drop EA EYE PRN PRN PRN Reason: Dry Eyes Aspirin (Ecotrin) 81 mg PO QAM [facility] Last Admin: 04/16/19 10:01 Dose: 81 mg Benzonatate (Tessalon) 100 mg PO Q6H PRN PRN Reason: Cough Bisacodyl (Dulcolax) 10 mg PO DAILYPRN PRN PRN Reason: Constipation Bisacodyl (Dulcolax) 10 mg [place] DAILYPRN PRN PRN Reason: Constipation Calcium Carbonate (Tums) 1,000 mg PO Q4H PRN PRN Reason: Heartburn or Indigestion Clonidine (Catapres) 0.1 mg PO Q4H PRN PRN Reason: SBP > 160____ Diltiazem HCl (Cardizem Cd) 120 mg PO DAILY [facility] Estrogens Conjugated (Premarin) 1.25 mg PO DAILY [facility] Last Admin: 04/16/19 10:10 Dose: 1.25 mg Famotidine (Pepcid) 20 mg PO QPM [facility] Last Admin: 04/15/19 20:59 Dose: 20 mg Famotidine (Pepcid) 20 mg PO DAILY [facility] Last Admin: 04/16/19 10:01 Dose: 20 mg Furosemide (Lasix) 40 mg SLOW IVP 0600,1400 [facility] Last Admin: 04/16/19 05:55 Dose: 40 mg Guaifenesin (Robitussin Sf) 200 mg PO Q4H PRN PRN Reason: Cough Hydralazine HCl (Apresoline) 10 mg SLOW IVP Q4H PRN PRN Reason: SBP > 180 and HR < 70 Levothyroxine Sodium (Synthroid) 75 mcg PO 0600 [facility] Last Admin: 04/16/19 06:03 Dose: Not Given Loratadine (Claritin) 10 mg PO QPM [facility] Last Admin: 04/15/19 20:59 Dose: 10 mg Melatonin (Melatonin) 3 mg PO HS PRN PRN Reason: Insomnia Metoprolol Tartrate (Lopressor) 100 mg PO BID [facility] Last Admin: 04/16/19 10:16 Dose: 100 mg Multivitamins/Minerals (Ocuvite With Lutein) 2 tab PO DAILY [facility] Last Admin: 04/16/19 10:01 Dose: 2 tab Nitroglycerin (Nitrostat) 0.4 mg SL Q5MIN PRN PRN Reason: Chest Pain Ondansetron HCl (Zofran) 4 mg IVP Q6H PRN PRN Reason: Nausea/Vomiting Senna/Docusate Sodium (Senokot S) 2 tab PO BID PRN PRN Reason: Constipation Sodium Bicarbonate (Bicarbonate, Sodium) 325 mg PO BID [facility] Last Admin: 04/16/19 10:01 Dose: 325 mg Sodium Chloride (Banks Nasal [place] 0.65%) 0 ml EA NARE QIDPRN PRN PRN Reason: Nasal Congestion
[2019-04-16 12:18] VITALS: BP 112/70; TEMP 98.4
--- NOTE | 2019-04-16 12:22 | DIS ---
DATE OF ADMISSION: 04/13/2019 DATE OF DISCHARGE: 04/16/2019 PRIMARY CARE PHYSICIAN: Maikol Morrissey MD DISCHARGE DISPOSITION: Rehab. PRIMARY DISCHARGE DIAGNOSES: 1. Bradyarrhythmia, resolved, congestive heart failure exacerbation (diastolic stage C.). 2. Metabolic encephalopathy, resolved. 3. Givny-gc-demlbic kidney failure, resolved. 4. Acute respiratory failure with hypoxia, improved. SECONDARY DISCHARGE DIAGNOSES: 1. Chronic diastolic heart failure. 2. Chronic atrial fibrillation. 3. Chronic kidney disease stage 3. 4. Chronic normal macrocytic anemia. 5. Physical deconditioning. 6. Mild protein-calorie malnutrition. 7. Senile dementia. 8. Hypothyroidism. 9. Hypertension. 10. Chronic compression fracture of L1 vertebra. PRIMARY PROCEDURE/OPERATION: None. RADIOLOGICAL INVESTIGATION: Chest x-ray on admission showed right basilar pleural parenchymal opacity. Repeat chest x-ray showed stable moderate to large right pleural effusion. Abdomen and pelvis CT scan showed large right pleural effusion. Compression fracture of L1. SIGNIFICANT LABORATORY DATA: WBC is 7.2, hemoglobin 9.5, platelet 275, MCV 114. INR 1.2. Sodium 140, potassium 3.7, BUN 24, creatinine 1.16, calcium 8.5. Cardiac enzyme negative. DISCHARGE MEDICATIONS: 1. [place] nasal spray as directed p.r.n. 2. Ocuvite two capsules p.o. daily. 3. Aspirin 81 mg daily. 4. Conjugated estrogen 1.25 mg p.o. daily. 5. Synthroid 75 mcg daily. 6. Claritin 10 mg daily. 7. Melatonin 3 mg p.o. nightly p.r.n. 8. Potassium chloride 10 mEq every other day. 9. Ranitidine 150 mg p.o. b.i.d. 10. Cardizem CD 120 mg p.o. daily. 11. Lasix 40 mg p.o. daily. 12. DuoNeb q.6 hourly. 13. Metoprolol 100 mg b.i.d. 14. Sodium bicarbonate 325 mg p.o. b.i.d. CONTRAINDICATION: The patient is not on chronic anticoagulation because of her physical deconditioning and risk of fall and that is why contraindicated. CODE STATUS: DNR. INPATIENT BIOCHEMICAL DEVELOPMENT ENGINEER: Dr. Jamil was following while in hospital. TEST RESULT PENDING ON DISCHARGE: None. ALLERGIES: NO KNOWN DRUG ALLERGY. DISCHARGE PLAN: Posthospital, the patient is planned for discharge to rehab. Subsequently, the patient will follow up with primary care physician. HOSPITAL COURSE: An 89-year-old female with above-mentioned medical problem, who was admitted by Dr. Ojeda. Please see her H and P for further details. The patient presented with generalized weakness and poor appetite. She was found with bradyarrhythmia. She was taking high dose of metoprolol and Cardizem CD and that is what contributing to her bradycardia and during this admission, we reduced Cardizem to 120 mg p.o. daily. With that, the patient's rate was under control. She did have chronic atrial fibrillation, but rate was not fast or slow with current regimen. The patient was also treated for mild igpsn-bx-acwouws diastolic heart failure. The patient also had renal insufficiency that was also improved. She had suspected a finding of a pleural effusion and that was monitored with chest x-ray while in hospital. This patient has significant physical deconditioning and that is why family member requesting placement. With help of case managers, we arranged rehabilitation paperwork for discharge done and discharge medication reconciliation done. Please note that, I saw this patient only one day, as per sign-out, the patient is ready for discharge today. Discharge medication reconciliation done. Total time spent on discharge, 31 minutes. Job ID: [id number]
== END 2019-04-16 16:06 | DRG 291 ==
LOC: ERS 11:50 → ERHOLD 13:39 → 2NO 17:42 → OBSVTOIN 04-13 09:31
PROVIDERS: ADMIT Internal Medicine; ATTEND Internal Medicine
DX: I13.0 Hypertensive heart and chronic kidney disease with heart failure and stage 1 through stage 4 chronic kidney disease, or unspecified chronic kidney disease (principal); I50.33 Acute on chronic diastolic (congestive) heart failure; G93.41 Metabolic encephalopathy; J96.01 Acute respiratory failure with hypoxia; N17.9 Acute kidney failure, unspecified; E44.0 Moderate protein-calorie malnutrition; N18.3 Chronic kidney disease, stage 3 (moderate); Z66 Do not resuscitate; I48.2 Chronic atrial fibrillation; D63.1 Anemia in chronic kidney disease; F03.90 Unspecified dementia, unspecified severity, without behavioral disturbance, psychotic disturbance, mood disturbance, and anxiety; E03.9 Hypothyroidism, unspecified; T17.908A Unspecified foreign body in respiratory tract, part unspecified causing other injury, initial encounter; Z79.01 Long term (current) use of anticoagulants; Z87.01 Personal history of pneumonia (recurrent); Z79.82 Long term (current) use of aspirin; Z79.899 Other long term (current) drug therapy; Z68.24 Body mass index [BMI] 24.0-24.9, adult
CPT/HCPCS: 36415; 71045; 74176; 80048; 80053; 82330; 82550; 82803; 83880; 84484; 85025; 85027; 85610; 85730; 93005; 93798; 94640; 94760; 96360; J1940; J7620

== ENCOUNTER 2019-05-05 14:21 | Inpatient (IN) | payer MEDICARE ==
[2019-05-05 15:12] LABS: #Basophils 0.1 thou/uL (0.0-0.2); #Lymphocytes 0.7 thou/uL (1.20-3.40); #Monocytes 0.7 thou/uL (0.11-0.59); #Neutrophils 4.3 thou/uL (1.40-6.50); %Eosinophils 0.8 % (0.0-10.0); %Lymphocytes 12.5 % (21.0-51.0); %Monocytes 12.1 % (0.0-10.0); %Neutrophils 73.5 % (42.0-75.0); Hemoglobin 8.7 g/dL (12.0-16.0); Mean Corpuscular HGB CONC 30.8 g/dL (32.0-36.0); Mean Corpuscular Hemoglobin 34.3 pg (27.0-31.0); Mean Platelet Volume 6.3 fL (7.4-10.4); Platelet Count 255 thou/uL (130-400); RBC Distribution Width 14.9 % (11.5-14.5); Red Blood Cell (RBC) Count 2.54 mill/uL (4.20-5.40); White Blood Cell (WBC) Count 5.8 thou/uL (4.8-10.8)
[2019-05-05 15:37] LABS: ALT (SGPT) 11 U/L (8-55); AST (SGOT) 17 U/L (5-34); Albumin 3.1 g/dL (3.4-4.8); Alkaline Phosphatase 137 U/L (40-150); Anion Gap 9 mmol/L (10-20); BUN (Urea Nitrogen) 40 mg/dL (9.8-20.1); Bilirubin, Total 0.4 mg/dL (0.2-1.2); Calc. Creatinine Clearance 0 mL/min (70-130); Calcium 8.9 mg/dL (7.8-10.44); Carbon Dioxide 33 mmol/L (23-31); Chloride 102 mmol/L (98-107); Estimated GFR-MDRD 22; Globulin 4.2 g/dL (2.4-3.5); Glucose 97 mg/dL (83-110); Lipase 61 U/L (8-78); Potassium 4.1 mmol/L (3.5-5.1); Protein, Total 7.3 g/dL (6.0-8.3); Sodium 140 mmol/L (136-145)
--- NOTE | 2019-05-05 16:22 | RAD ---
CHEST 1 VIEW: Date: 05/05/19 HISTORY: Shortness of breath. COMPARISON: Radiograph dated 04/14/19. FINDINGS: Large bilateral pleural effusions with the left effusion larger than the prior examination. Mild S-sh aped scoliosis thoracolumbar spine. Heart size is enlarged. Mild edema. No pneumothorax. IMPRESSION: 1. Enlarging left layering pleural effusion. 2. Similar large right layering pleural effusion. 3. Cardiomegaly and mild pulmonary edema. POS: HOME
[2019-05-05] MEDS ORDERED: Furosemide 20 MG/2 ML VIAL ONE (16:59)
[2019-05-05 19:05] LABS: Troponin I 0.034 ng/mL (< 0.028)
[2019-05-05] MEDS ORDERED: Ondansetron ODT 4 MG TAB SL PRN (20:57)
[2019-05-05] MEDS ORDERED: Ondansetron PF 4 MG/2 ML Vial IVP PRN ×2 (20:57→23:29)
[2019-05-05] MEDS ORDERED: Acetaminophen 325 MG TAB PO PRN (20:57)
[2019-05-05] MEDS ORDERED: Melatonin 3 MG TAB PO PRN (23:29)
[2019-05-05] MEDS ORDERED: Acetaminophen 500 MG TAB PO PRN (23:29)
[2019-05-05] MEDS ORDERED: Ondansetron ODT 4 MG TAB PO PRN (23:29)
[2019-05-05] MEDS ORDERED: Furosemide 40 MG/4 ML VIAL SLOW IVP SCH (23:45)
--- NOTE | 2019-05-06 01:46 | HP ---
PRIMARY CARE PROVIDER: Maikol Morrissey MD CHIEF COMPLAINT: Shortness of breath. HISTORY OF PRESENT ILLNESS: This is an 89-year-old female, who presents to [facility] Emergency Department in transfer from the [place] at [facility], where the patient is a current resident. The patient was apparently noted by her home health nurse with some increased shortness of breath, bradycardia, and slight wheezing. The patient admits to some increased shortness of breath with short distance ambulation with her walker. The patient states she has been compliant with her chronic medication regimen including Lasix for diastolic heart failure. The patient was recently admitted to [facility] from 04/13 to 04/16/2019 due to respiratory failure due to congestive heart failure exacerbation, diastolic in nature. The patient received IV Lasix during this admission and was eventually discharged to her assisted living facility. The patient also had her Cardizem dose reduced due to bradycardia, but otherwise had been doing well at home. The patient denies using oxygen supplementation. No history reported of fever or chills or prominent lower extremity edema. In the emergency room, the patient underwent general evaluation including chest imaging showing bilateral pleural effusions and elevated BNP over 1000. The patient received IV Lasix and oxygen supplementation, and was transferred to the observation unit for further evaluation. PAST MEDICAL HISTORY: 1. Acute on chronic diastolic congestive heart failure, stage C. 2. Acute hypoxic respiratory failure due to #1. 3. Chronic atrial fibrillation. No anticoagulation due to history of GI bleed and fall risk. 4. History of recent pneumonia with parapneumonic effusion. 5. History of GI bleed. 6. Deconditioning. 7. History of falls. 8. L1 chronic compression fracture. 9. Chronic kidney disease, stage 4. PAST SURGICAL HISTORY: 1. Status post hysterectomy. 2. Status post varicose vein surgery. CURRENT MEDICATIONS: 1. Enteric-coated aspirin 81 mg p.o. daily. 2. Premarin 1.25 mg p.o. daily. 3. Levothyroxine 75 mcg p.o. daily. 4. Claritin 10 mg p.o. at bedtime. 5. Melatonin 3 mg p.o. at bedtime p.r.n. 6. Klor-Con 10 mEq p.o. q.48 hours. 7. Ranitidine 150 mg p.o. b.i.d. 8. Lasix 40 mg p.o. daily. 9. DuoNeb 3 mL nebulized q.6 hours p.r.n. 10. Metoprolol 100 mg p.o. b.i.d. 11. Sodium bicarbonate 325 mg p.o. b.i.d. ALLERGIES: NO KNOWN DRUG ALLERGIES. FAMILY HISTORY: No inheritable disease per patient report. SOCIAL HISTORY: The patient resides at the [place] at [facility]. No current alcohol, tobacco, or illicit drug use. Ambulates with a rolling walker or wheelchair. History of falls. Daughter is her surrogate medical decision maker. REVIEW OF SYSTEMS: CONSTITUTIONAL: Negative for weight loss or gain, ability to conduct usual activities. SKIN: Negative for rash, itching. EYES: Negative for double vision, pain. ENT/MOUTH: Negative for nose bleeding, neck stiffness, pain, tenderness. CARDIOVASCULAR: Negative for palpitations, dyspnea on exertion, orthopnea. RESPIRATORY: Negative for shortness of breath, wheezing, cough, hemoptysis, fever or night sweats. GASTROINTESTINAL: Negative for poor appetite, abdominal pain, heartburn, nausea, vomiting, constipation, or diarrhea. GENITOURINARY: Negative for urgency, frequency, dysuria, nocturia. MUSCULOSKELETAL: Negative for pain, swelling. NEUROLOGIC/PSYCHIATRIC: Negative for anxiety, depression. ALLERGY/IMMUNOLOGIC: Negative for skin rash, bleeding tendency. Otherwise negative except as stated per HPI. PHYSICAL EXAMINATION: VITAL SIGNS: On admission, blood pressure 150/82, pulse 85, respiratory rate 16, temperature 97.6 degrees Fahrenheit, O2 saturation 96% on room air currently, previously 87% on room air at the time of evaluation in the emergency room. GENERAL APPEARANCE: This is an 89-year-old female, alert, smiling, responsive, in no acute distress. HEENT: Pupils are equal, round, reactive to light and accommodation. Extraocular muscles are intact. No scleral icterus. No conjunctival injection. Nares patent. OP is clear. NECK: Supple. No cervical adenopathy. No thyromegaly. No carotid bruits. No JVD noted. CHEST: Diminished breath sounds in bilateral lung sheikh in the basilar segments. Positive crackles bilaterally. CARDIOVASCULAR EXAM: S1 and S2 with holosystolic murmur, loudest throughout the precordium. Irregular rate and rhythm. ABDOMEN: Rounded, soft, nontender, and nondistended. Bowel sounds are positive in all 4 quadrants. No hepatosplenomegaly. No abdominal bruits. No rebound or guarding appreciated. EXTREMITIES: Warm and dry with fair turgor. No clubbing, cyanosis, or asymmetric edema appreciated. Pulses palpable distally at the dorsalis pedis, posterior tibial, and popliteal arteries bilaterally. Capillary refill less than 2 seconds. NEUROLOGIC: Cranial nerves 2 through 12 are grossly intact. No focal or lateralizing signs appreciated. PERTINENT LAB AND X-RAY FINDINGS: Sodium 140, potassium 4.1, chloride 102, CO2 of 33, BUN 40, creatinine 2.09, estimated GFR 22, glucose 97. Lactic acid level 0.6, calcium 8.9. Troponin I ranged between 0.015 to 0.034. BNP 1114, previously noted 761 on 04/22/2019. CBC showed a white blood cell count of 5.8, hemoglobin 8.7, hematocrit 28.4, MCV 111, platelet count 255 with normal differential. Portable chest x-ray dated 05/05/2019, showed bilateral pleural effusion with cardiomegaly and pulmonary edema. EKG dated 05/05/2019 by my interpretation shows atrial fibrillation with heart rates in the 50s. Attenuated R-waves noted in the precordial leads. Left axis deviation. No acute ST-T wave changes appreciated. ASSESSMENT AND PLAN: 1. Acute on chronic diastolic congestive heart failure exacerbation. The patient will be placed in observation status. Continue Lasix 40 mg IV b.i.d. Daily weights and serial I's and O's. Ejection fraction noted 50% to 55% by echocardiogram, 01/25/2019. 2. Acute hypoxic respiratory failure secondary to #1. Continue oxygen supplementation as needed to maintain O2 saturation greater than equal to 90%. 3. Acute kidney injury on chronic kidney disease stage 3 to 4. Continue serial creatinine monitoring. Avoid nephrotoxic agents and limit contrast exposure. 4. Chronic atrial fibrillation, rate controlled currently. Resume home regimen of metoprolol 100 mg p.o. b.i.d. Continue aspirin 81 mg daily. No anticoagulation due to history of falls and gastrointestinal bleed. 5. Chronic macrocytic anemia. Stable currently. No current evidence to suggest acute blood loss. Repeat CBC in the a.m. 6. Prophylaxis. SCDs while in bed. Pepcid 20 mg p.o. b.i.d. PT evaluation for functional assessment. 7. Code status is do not attempt resuscitation, confirmed with the patient and daughter, who is surrogate medical decision maker. Job ID: [id number]
[2019-05-06 05:37] LABS: Anion Gap 13 mmol/L (10-20); BUN (Urea Nitrogen) 37 mg/dL (9.8-20.1); Calc. Creatinine Clearance 19 mL/min (70-130); Carbon Dioxide 32 mmol/L (23-31); Chloride 101 mmol/L (98-107); Estimated GFR-MDRD 27; Glucose 83 mg/dL (83-110); Magnesium 1.9 mg/dL (1.6-2.6); Potassium 3.8 mmol/L (3.5-5.1); Sodium 142 mmol/L (136-145)
[2019-05-06 05:53] LABS: Band 1 % (5-11); Eosinophils 1 % (0-10); Hemoglobin 8.7 g/dL (12.0-16.0); Hypochromia SLIGHT = 6-15 cells (100X) (0-5/hpf); Lymphocytes 9 % (21-51); MDiff Complete? YES; Macrocytosis SLIGHT = 6-15 cells (100X) (0-5/hpf); Mean Corpuscular HGB CONC 30.6 g/dL (32.0-36.0); Mean Corpuscular Hemoglobin 34.5 pg (27.0-31.0); Mean Platelet Volume 6.5 fL (7.4-10.4); Monocytes 1 % (0-10); Neutrophil 88 % (42-75); Nucleated RBC 1 % (0); Platelet Count 238 thou/uL (130-400); Platelet Morphology Comment Appears Adequate; RBC Distribution Width 14.8 % (11.5-14.5); Red Blood Cell (RBC) Count 2.51 mill/uL (4.20-5.40); White Blood Cell (WBC) Count 5.8 thou/uL (4.8-10.8)
[2019-05-06] MEDS: Levothyroxine Sodium 75 MCG TAB PO SCH (06:03)
[2019-05-06] MEDS: Furosemide 40 MG/4 ML VIAL SLOW IVP SCH ×2 (06:06→13:41)
[2019-05-06] MEDS: Famotidine 20 MG TAB PO SCH (08:31)
[2019-05-06] MEDS: Metoprolol Tartrate 100 MG TAB PO SCH ×2 (08:31→20:21)
[2019-05-06] MEDS: Potassium Chloride 10 MEQ TAB PO SCH (08:31)
[2019-05-06] MEDS: Aspirin 81 mg Enteric Coated Tablet PO SCH (08:31)
[2019-05-06] MEDS ORDERED: Non-Formulary Item 1 EACH (Ranitidine Hcl [Ranitidine Hcl] 150 MG) PO SCH (09:00)
[2019-05-06] MEDS ORDERED: Sodium Bicarbonate Tab 325 MG TAB PO SCH (09:00)
--- NOTE | 2019-05-06 10:39 | PDOC.PN ---
- Subjective Encounter Start Date: 05/06/19 Encounter Start Time: 10:30 Subjective: Patient examined, resting in bed, denies complaints today -: Denies chest pain, states breathing effort not much improved -: from yesterday - Objective Resuscitation Status - Order Detail: 05/05/19 23:19 Resuscitation Status Routine Resuscitation Status: DNAR: NO Resuscitation Discussed with: Confirmed with patient Vital Signs & Weight: Vital Signs (12 hours) Temp Pulse Resp BP Pulse Ox 05/06/19 08:01 97 05/06/19 08:00 97.5 F L 109 H 16 141/82 H 89 L 05/06/19 03:50 98.6 F 96 16 160/88 H 99 05/05/19 23:22 97.2 F L 98 20 160/81 H 97 Weight Weight 55.338 kg I&O: 05/05/19 05/06/19 05/07/19 06:59 06:59 06:59 Intake Total 30 Output Total 250 Balance -220 Result Diagrams: 05/06/19 04:39 05/06/19 04:39 Phys Exam - Physical Examination HEENT: PERRLA, sclera anicteric Neck: supple, full ROM diminished breath sounds at bases, increased work of breathing PO2 89 on RA, 93% on 2L Cardiovascular: RRR Gastrointestinal: soft, non-tender Musculoskeletal: no edema, pulses present Neurological: normal sensation, moves all 4 limbs Lymphatic: no nodes Psychiatric: normal affect, A&O x 3 Skin: normal turgor Dx/Plan (1) Acute on chronic renal failure Code(s): N17.9 - ACUTE KIDNEY FAILURE, UNSPECIFIED; N18.9 - CHRONIC KIDNEY DISEASE, UNSPECIFIED Status: Acute Comment: creatinine now down significantly, stopped IV fluids, resumed diuretics (2) Acute respiratory failure with hypoxia Code(s): J96.01 - ACUTE RESPIRATORY FAILURE WITH HYPOXIA Status: Acute Comment: Secondary to pneumonia and pleural effusion. Continue supplemental oxygen as needed. (3) Atrial fibrillation Code(s): I48.91 - UNSPECIFIED ATRIAL FIBRILLATION Status: Chronic Qualifiers: Atrial fibrillation type: chronic Qualified Code(s): I48.2 - Chronic atrial fibrillation (4) CHF (congestive heart failure) Code(s): I50.9 - HEART FAILURE, UNSPECIFIED Status: Chronic Qualifiers: Heart failure type: diastolic Heart failure chronicity: acute Qualified Code(s): I50.31 - Acute diastolic (congestive) heart failure Comment: (5) HTN (hypertension) Code(s): I10 - ESSENTIAL (PRIMARY) HYPERTENSION Status: Chronic Comment: (6) Hypothyroidism Code(s): E03.9 - HYPOTHYROIDISM, UNSPECIFIED Status: Chronic Comment: - Plan cont current plan of care, PT/OT Lasix IV, will continue with diuresis -: O2 as needed, -: Creatinine function improved today 2.09 to 1.79, will recheck in AM -: PT evaluation -: Will continue to monitor * .
[2019-05-06] MEDS ORDERED: Dronedarone HCl 400 MG TAB PO SCH (17:00)
[2019-05-06] MEDS: Loratadine 10 MG TAB PO SCH (20:21)
--- NOTE | 2019-05-07 03:36 | CON ---
DATE OF CONSULTATION: PRIMARY CUSTOMER SALES ADVISOR: Dr. Thomas Strong. REASON FOR ADMISSION: Congestive heart failure. HISTORY OF PRESENT ILLNESS: Ms. Sarina Willis is a very pleasant 89-year-old woman. She has had multiple hospitalizations with congestive heart failure. The patient also has a history of atrial fibrillation and chronic diastolic heart failure. The patient has a history of pleural effusions in the past and now she has chronic atrial fibrillation, not a candidate for Coumadin or other anticoagulants due to GI bleeding. The patient was admitted to the hospital on this occasion with progressive difficulty breathing. She has been admitted to get intravenous diuresis. No chest pain or pressure. MEDICATIONS: At home, 1. Ranitidine. 2. Aspirin. 3. Levothyroxine. 4. Estrogen. 5. Melatonin. 6. Metoprolol. 7. Potassium. 8. Furosemide 40 mg a day. It is also listed on sodium bicarb 325 mg twice a day. ALLERGIES: NONE KNOWN. SOCIAL HISTORY: No alcohol or tobacco abuse. REVIEW OF SYSTEMS: CONSTITUTIONAL: Positive for weakness and fatigue. Vision, no changes. Hearing, no changes. PULMONARY: No cough or wheezing. GASTROINTESTINAL: No nausea, vomiting, or diarrhea. SKIN: No rashes. NEUROLOGIC: No unilateral weakness or numbness. PSYCHIATRIC: No unusual depression or anxiety. PHYSICAL EXAMINATION: GENERAL: This is a frail-appearing elderly woman, 5 feet tall, 122 pounds, looks very fragile. VITAL SIGNS: Blood pressure 131/77, pulse 90, it is irregular. HEENT: Eyes, sclerae nonicteric. Mouth, mucous membranes moist. NECK: Supple. Neck veins are moderately distended. LUNGS: Clear anteriorly and posteriorly. I do not hear any wheezing. CARDIAC: Irregularly irregular. I do not hear murmur, rub, or gallop. ABDOMEN: Soft and nontender. No hepatosplenomegaly. EXTREMITIES: Warm, dry. No clubbing or cyanosis. There is some mild edema. DIAGNOSTIC STUDIES: Chest x-ray looks like a large pleural effusion on the right, small on the left. PERTINENT LABORATORY DATA: Creatinine is 1.79, it was 2.09 yesterday. Her CO2 is 32. ASSESSMENT: 1. Congestive heart failure, previously diastolic. 2. Chronic atrial fibrillation. 3. Pleural effusions. 4. Renal failure, stage 4. PLAN: 1. I would stop the sodium bicarb at this point. 2. Agree with diuresis. 3. Dr. Strong to resume care tomorrow. Job ID: [id number]
[2019-05-07 06:01] LABS: Iron 75 ug/dL (50-170); Iron Binding Capacity, Total 235 mcg/dL (265-497)
[2019-05-07] MEDS: Furosemide 40 MG/4 ML VIAL SLOW IVP SCH ×2 (06:05→13:33)
[2019-05-07] MEDS: Levothyroxine Sodium 75 MCG TAB PO SCH (06:05)
[2019-05-07] MEDS: Famotidine 20 MG TAB PO SCH (09:02)
[2019-05-07] MEDS: Potassium Chloride 10 MEQ TAB PO SCH (09:02)
[2019-05-07] MEDS: Aspirin 81 mg Enteric Coated Tablet PO SCH (09:02)
[2019-05-07] MEDS: Metoprolol Tartrate 100 MG TAB PO SCH ×2 (09:03→21:33)
--- NOTE | 2019-05-07 14:04 | PDOC.PALCO ---
Palliative Care Consult - Consult Details Requesting Physician: Neida Vicente Reason for Consult: goals of care, assistance with communication prognosis/ disease, family support Family Members Present: spoke with daughter on phone after seeing patient/as per patient request - Pertinent HPI 89 female with frequent admissions secondary to acute on chronic heart failure. Resides at [facility] with [facility]. Most recent admission for shortness of breath. Home health assessed and secondary to bradycardia, shortness of breath and wheezing encouraged emergency room visit. Admitted for evaluation and treatment. - Pertinent PMH Acute on Chronic diastolic congestive heart failure stage C, acute hypoxic respiratory failure, recurrent plural effusions, Deconditioning, frequent falls , CKD 4. - Social History Smoking Status: Never smoker Smoking: no tobacco exposure Alcohol Use: none Drug Use History: none Living Situation: other - Medications MAR Reviewed: Yes - Allergies Allergies/Adverse Reactions: Allergies Allergy/AdvReac Type Severity Reaction Status Date / Time No Known Allergies Allergy Unverified 05/05/19 22:41 - Subjective Awake alert and with slight delayed memory recall at todays visit. Accessory muscle use observed with clavicular retractions with minimal conversation and activity. Poor appetite. When asked what she wanted patient states "she would like to be out of here and at home" I discussed I would speak with her daughter as well to attempt to achieve the goal of staying at home. - Objective Vital Signs: Vital Signs - Most Recent Temp Pulse Resp BP Pulse Ox 97.7 F 84 16 142/87 H 100 05/07/19 11:25 05/07/19 11:34 05/07/19 11:25 05/07/19 11:34 05/07/19 11:25 Palliative Performance Scale: 40 - Physical Exam HEENT: PERRLA, moist MMs Deviation from normal: shortness of breath Cardiovascular: RRR Gastrointestinal: soft, positive bowel sounds Psychiatric: normal affect Skin: normal turgor - Problem List (1) Palliative care encounter Code(s): Z51.5 - ENCOUNTER FOR PALLIATIVE CARE Current Visit: Yes Status: Acute (2) Physical deconditioning Code(s): R53.81 - OTHER MALAISE Current Visit: Yes Status: Acute (3) Pleural effusion, right Code(s): J90 - PLEURAL EFFUSION, NOT ELSEWHERE CLASSIFIED Current Visit: No Status: Acute (4) CHF (congestive heart failure) Code(s): I50.9 - HEART FAILURE, UNSPECIFIED Current Visit: No Status: Chronic Qualifiers: Heart failure type: diastolic Heart failure chronicity: acute Qualified Code(s): I50.31 - Acute diastolic (congestive) heart failure - Plan/Recommendations Plan: Phone call with patient daughter Sandy. Shared with daughter patient wish to stay out of hospital and at home. Discussed at length patient disease processes and continued expected decline related to disease trajectory. Sandy asked about Hospice and what care that entailed. Sandy further states that she knows her mother continues to decline and that she herself wants "to just keep fighting but knows that is not necessarily best". Will give Sandy a list of questions she can use to interview hospice companies if she desires to do so. *Patient states she wants to stay out of the hospital *Sandy to talk to her younger brother in [place] in regards to Hospice for Ms Willis *Tanesha Plummer RNsenior care manager to reach out to find out if the patient can continue to reside at the [facility] *Tanesha Plummer RN to leave list of Hospice information for Sandy with our information. Discussed with Dr Simeon and A Ibarra curator natural history museum Failure Coordinator [90] minutes spent on this encounter with >50% of the time in counseling and coordination of care. Thank you for this very appropriate consult.
--- NOTE | 2019-05-07 14:40 | PDOC.PN ---
- Subjective Encounter Start Date: 05/07/19 Encounter Start Time: 13:50 Patient reports she is feeling tired. No other complaints. A little somnolent. - Objective Resuscitation Status - Order Detail: 05/05/19 23:19 Resuscitation Status Routine Resuscitation Status: DNAR: NO Resuscitation Discussed with: Confirmed with patient Vital Signs & Weight: Vital Signs (12 hours) Temp Pulse Pulse Pulse Resp BP BP 05/07/19 11:34 84 81 142/87 H 129/80 05/07/19 11:25 97.7 F 79 16 05/07/19 07:51 97.4 F L 95 16 05/07/19 04:00 97.5 F L 85 17 BP Pulse Ox 05/07/19 11:34 05/07/19 11:25 133/82 100 05/07/19 07:51 168/87 H 99 05/07/19 04:00 133/71 98 Weight Admit Weight 124 lb 14.4 oz Weight 126 lb 1.6 oz I&O: 05/06/19 05/07/19 05/08/19 06:59 06:59 06:59 Intake Total 30 450 Output Total 250 950 Balance -220 -500 Result Diagrams: 05/06/19 04:39 05/06/19 04:39 Phys Exam - Physical Examination Constitutional: NAD Respiratory: no wheezing Minimal rales and diminished breath sounds at bases. Cardiovascular: RRR, no significant murmur Gastrointestinal: soft, non-tender, no distention Musculoskeletal: no edema Deviation from normal: Somnolent. Dx/Plan (1) Pleural effusion Code(s): J90 - PLEURAL EFFUSION, NOT ELSEWHERE CLASSIFIED Status: Acute (2) Acute respiratory failure with hypoxia Code(s): J96.01 - ACUTE RESPIRATORY FAILURE WITH HYPOXIA Status: Acute Comment: Secondary to pneumonia and pleural effusion. Continue supplemental oxygen as needed. (3) Atrial fibrillation Code(s): I48.91 - UNSPECIFIED ATRIAL FIBRILLATION Status: Chronic Qualifiers: Atrial fibrillation type: chronic Qualified Code(s): I48.2 - Chronic atrial fibrillation (4) CHF (congestive heart failure) Code(s): I50.9 - HEART FAILURE, UNSPECIFIED Status: Chronic Qualifiers: Heart failure type: diastolic Heart failure chronicity: acute Qualified Code(s): I50.31 - Acute diastolic (congestive) heart failure Comment: (5) Compression fracture of L1 lumbar vertebra Code(s): S32.010A - WEDGE COMPRESSION FRACTURE OF FIRST LUMBAR VERTEBRA, INIT Status: Chronic Comment: (6) HTN (hypertension) Code(s): I10 - ESSENTIAL (PRIMARY) HYPERTENSION Status: Chronic Comment: (7) Hypothyroidism Code(s): E03.9 - HYPOTHYROIDISM, UNSPECIFIED Status: Chronic Comment: (8) Acute worsening of stage 3 chronic kidney disease Code(s): N18.3 - CHRONIC KIDNEY DISEASE, STAGE 3 (MODERATE) Status: Acute - Plan * Back with recurrent diastolic CHF with Severe TR. * Continue Diuresis. * May need to consider thoracentesis if she does not improve with diuresis. * Appreciate Palliative Care input. * Continue to monitor renal function with diuresis.
[2019-05-07] MEDS: Loratadine 10 MG TAB PO SCH (21:34)
[2019-05-08] MEDS: Levothyroxine Sodium 75 MCG TAB PO SCH (05:43)
[2019-05-08] MEDS: Furosemide 40 MG/4 ML VIAL SLOW IVP SCH ×2 (05:43→14:24)
[2019-05-08 06:31] LABS: Anion Gap 9 mmol/L (10-20); BUN (Urea Nitrogen) 36 mg/dL (9.8-20.1); Calc. Creatinine Clearance 20 mL/min (70-130); Calcium 8.7 mg/dL (7.8-10.44); Carbon Dioxide 36 mmol/L (23-31); Chloride 98 mmol/L (98-107); Estimated GFR-MDRD 30; Glucose 77 mg/dL (83-110); Potassium 3.6 mmol/L (3.5-5.1); Sodium 139 mmol/L (136-145)
[2019-05-08 08:16] LABS: #Eosinphils 0.1 thou/uL (0.0-0.7); #Lymphocytes 1.1 thou/uL (1.20-3.40); #Monocytes 0.6 thou/uL (0.11-0.59); #Neutrophils 3.9 thou/uL (1.40-6.50); %Basophils 0.2 % (0.0-1.0); %Eosinophils 1.5 % (0.0-10.0); %Lymphocytes 18.4 % (21.0-51.0); %Monocytes 10.7 % (0.0-10.0); %Neutrophils 69.2 % (42.0-75.0); Hemoglobin 8.6 g/dL (12.0-16.0); MDiff Complete? YES; Macrocytosis SLIGHT = 6-15 cells (100X) (0-5/hpf); Mean Corpuscular Hemoglobin 33.8 pg (27.0-31.0); Mean Platelet Volume 6.5 fL (7.4-10.4); Platelet Count 228 thou/uL (130-400); RBC Distribution Width 14.8 % (11.5-14.5); Red Blood Cell (RBC) Count 2.53 mill/uL (4.20-5.40); White Blood Cell (WBC) Count 5.7 thou/uL (4.8-10.8)
[2019-05-08] MEDS: Famotidine 20 MG TAB PO SCH (08:49)
[2019-05-08] MEDS: Aspirin 81 mg Enteric Coated Tablet PO SCH (08:49)
[2019-05-08] MEDS: Potassium Chloride 10 MEQ TAB PO SCH (08:50)
[2019-05-08] MEDS: Metoprolol Tartrate 100 MG TAB PO SCH ×2 (08:50→21:18)
--- NOTE | 2019-05-08 16:06 | PDOC.PN ---
- Subjective Encounter Start Date: 05/08/19 Encounter Start Time: 11:00 Patient reports she is tired, but no other complaints. - Objective Resuscitation Status - Order Detail: 05/05/19 23:19 Resuscitation Status Routine Resuscitation Status: DNAR: NO Resuscitation Discussed with: Confirmed with patient Vital Signs & Weight: Vital Signs (12 hours) Temp Pulse Resp BP Pulse Ox 05/08/19 11:10 97.5 F L 78 20 114/63 92 L 05/08/19 07:32 97.4 F L 88 16 134/81 98 05/08/19 05:08 99 Weight Admit Weight 124 lb 14.4 oz Weight 121 lb I&O: 05/07/19 05/08/19 05/09/19 06:59 06:59 06:59 Intake Total 450 650 480 Output Total 950 1550 Balance -500 -900 480 Result Diagrams: 05/08/19 05:33 05/08/19 05:32 Phys Exam - Physical Examination Constitutional: NAD Respiratory: no wheezing, no rales, no rhonchi Diminished Cardiovascular: irregular II/IV M Gastrointestinal: soft, non-tender, no distention Musculoskeletal: no edema Dx/Plan (1) Pleural effusion Code(s): J90 - PLEURAL EFFUSION, NOT ELSEWHERE CLASSIFIED Status: Acute Comment: Slowly progressive. Likely secondary to CHF. (2) Acute respiratory failure with hypoxia Code(s): J96.01 - ACUTE RESPIRATORY FAILURE WITH HYPOXIA Status: Acute Comment: Secondary to CHF and pleural effusion. Continue supplemental oxygen as needed. (3) Atrial fibrillation Code(s): I48.91 - UNSPECIFIED ATRIAL FIBRILLATION Status: Chronic Qualifiers: Atrial fibrillation type: chronic Qualified Code(s): I48.2 - Chronic atrial fibrillation (4) CHF (congestive heart failure) Code(s): I50.9 - HEART FAILURE, UNSPECIFIED Status: Chronic Qualifiers: Heart failure type: diastolic Heart failure chronicity: acute Qualified Code(s): I50.31 - Acute diastolic (congestive) heart failure Comment: (5) Compression fracture of L1 lumbar vertebra Code(s): S32.010A - WEDGE COMPRESSION FRACTURE OF FIRST LUMBAR VERTEBRA, INIT Status: Chronic Comment: (6) HTN (hypertension) Code(s): I10 - ESSENTIAL (PRIMARY) HYPERTENSION Status: Chronic Comment: (7) Hypothyroidism Code(s): E03.9 - HYPOTHYROIDISM, UNSPECIFIED Status: Chronic Comment: (8) Acute worsening of stage 3 chronic kidney disease Code(s): N18.3 - CHRONIC KIDNEY DISEASE, STAGE 3 (MODERATE) Status: Acute (9) Physical deconditioning Code(s): R53.81 - OTHER MALAISE Status: Acute (10) Anemia Code(s): D64.9 - ANEMIA, UNSPECIFIED Status: Chronic Comment: drop from last admit likely dilutional due to IV fluids, no evidence acute blood loss or significant hematoma at this time, resuming ASA - Plan * Diuresing fairly well. Difficult to track, but weight down. * Sats are good on 2 LPM. * Will try to wean oxygen. * Repeat CXR in am. * Depending on the degree of effusion and her oxygenation, may need to consider thoracentesis. * Appreciate Palliative Care input. Recurrent admissions for CHF in a few weeks.
--- NOTE | 2019-05-08 17:01 | EKG ---
Test Reason : ER INDICATION Blood Pressure : / mmHG Vent. Rate : 057 BPM Atrial Rate : 035 BPM P-R Int : 000 ms QRS Dur : 102 ms QT Int : 446 ms P-R-T Axes : 000 -38 085 degrees QTc Int : 434 ms Atrial fibrillation with slow ventricular response Left axis deviation Incomplete right bundle branch block Confirmed by RUBÉN SNIDER ([id number]), sound editor JORDAN MCPHERSON ([id number]) on 05/08/2019 5:01:34 PM Referred By: Confirmed By:RUBÉN SNIDER
[2019-05-08] MEDS: Loratadine 10 MG TAB PO SCH (21:18)
[2019-05-09] MEDS: Furosemide 40 MG/4 ML VIAL SLOW IVP SCH ×2 (05:22→13:01)
[2019-05-09] MEDS: Levothyroxine Sodium 75 MCG TAB PO SCH (05:22)
[2019-05-09 06:26] LABS: #Eosinphils 0.1 thou/uL (0.0-0.7); #Lymphocytes 0.9 thou/uL (1.20-3.40); #Monocytes 0.6 thou/uL (0.11-0.59); #Neutrophils 5.1 thou/uL (1.40-6.50); %Basophils 0.2 % (0.0-1.0); %Eosinophils 0.8 % (0.0-10.0); Hemoglobin 9.1 g/dL (12.0-16.0); Mean Corpuscular HGB CONC 30.2 g/dL (32.0-36.0); Mean Corpuscular Hemoglobin 34.3 pg (27.0-31.0); Mean Platelet Volume 6.8 fL (7.4-10.4); Platelet Count 244 thou/uL (130-400); RBC Distribution Width 15.3 % (11.5-14.5); Red Blood Cell (RBC) Count 2.66 mill/uL (4.20-5.40); White Blood Cell (WBC) Count 6.7 thou/uL (4.8-10.8)
[2019-05-09 06:43] LABS: BUN (Urea Nitrogen) 36 mg/dL (9.8-20.1); Calc. Creatinine Clearance 21 mL/min (70-130); Calcium 8.7 mg/dL (7.8-10.44); Estimated GFR-MDRD 29; Glucose 82 mg/dL (83-110)
[2019-05-09 06:51] LABS: Anion Gap 12 mmol/L (10-20); Carbon Dioxide 37 mmol/L (23-31); Chloride 95 mmol/L (98-107); Potassium 3.8 mmol/L (3.5-5.1); Sodium 140 mmol/L (136-145)
--- NOTE | 2019-05-09 08:38 | RAD ---
PORTABLE CHEST: HISTORY: Followup pleural effusion. COMPARISON: 05/05/2019 study. FINDINGS: Heart size is enlarged. Large bilateral pleural effusions and associated parenchymal lung changes ar e again seen fairly similar to the prior exam, perhaps minimal reduction in some of the right-sided p leural and parenchymal changes. IMPRESSION: Essentially stable chest, perhaps some minimal right-sided improvement. POS: HALIE
[2019-05-09] MEDS: Famotidine 20 MG TAB PO SCH (09:08)
[2019-05-09] MEDS: Aspirin 81 mg Enteric Coated Tablet PO SCH (09:08)
[2019-05-09] MEDS: Potassium Chloride 10 MEQ TAB PO SCH (09:08)
[2019-05-09] MEDS: Metoprolol Tartrate 100 MG TAB PO SCH ×2 (09:08→21:36)
--- NOTE | 2019-05-09 13:23 | PDOC.PN ---
- Subjective Encounter Start Date: 05/09/19 Encounter Start Time: 11:30 Feels ok. Says she feels like she is breathing comfortably. No other complaints. - Objective Resuscitation Status - Order Detail: 05/05/19 23:19 Resuscitation Status Routine Resuscitation Status: DNAR: NO Resuscitation Discussed with: Confirmed with patient Vital Signs & Weight: Vital Signs (12 hours) Temp Pulse Resp BP Pulse Ox 05/09/19 11:18 98.2 F 84 16 108/61 92 L 05/09/19 09:53 81 16 92 L 05/09/19 07:19 98.4 F 80 15 139/71 98 05/09/19 04:50 98.1 F 83 15 137/54 L 98 Weight Admit Weight 124 lb 14.4 oz Weight 123 lb 11.2 oz I&O: 05/08/19 05/09/19 05/10/19 06:59 06:59 06:59 Intake Total 650 970 237 Output Total 1550 650 850 Balance -900 320 -613 Result Diagrams: 05/09/19 06:02 05/09/19 06:02 Phys Exam - Physical Examination Respiratory: no wheezing, no rales Diminished. Cardiovascular: RRR M present Gastrointestinal: soft, non-tender, no distention Musculoskeletal: no edema Neurological: non-focal Deviation from normal: Pleasant, confused. Dx/Plan (1) CHF (congestive heart failure) Code(s): I50.9 - HEART FAILURE, UNSPECIFIED Status: Chronic Qualifiers: Heart failure type: diastolic Heart failure chronicity: acute Qualified Code(s): I50.31 - Acute diastolic (congestive) heart failure Comment: (2) Acute respiratory failure with hypoxia Code(s): J96.01 - ACUTE RESPIRATORY FAILURE WITH HYPOXIA Status: Acute Comment: Secondary to CHF and pleural effusion. Continue supplemental oxygen as needed. (3) Pleural effusion Code(s): J90 - PLEURAL EFFUSION, NOT ELSEWHERE CLASSIFIED Status: Acute Comment: Slowly progressive. Likely secondary to CHF. (4) Atrial fibrillation Code(s): I48.91 - UNSPECIFIED ATRIAL FIBRILLATION Status: Chronic Qualifiers: Atrial fibrillation type: chronic Qualified Code(s): I48.2 - Chronic atrial fibrillation (5) Compression fracture of L1 lumbar vertebra Code(s): S32.010A - WEDGE COMPRESSION FRACTURE OF FIRST LUMBAR VERTEBRA, INIT Status: Chronic Comment: (6) HTN (hypertension) Code(s): I10 - ESSENTIAL (PRIMARY) HYPERTENSION Status: Chronic Comment: (7) Hypothyroidism Code(s): E03.9 - HYPOTHYROIDISM, UNSPECIFIED Status: Chronic Comment: (8) Acute worsening of stage 3 chronic kidney disease Code(s): N18.3 - CHRONIC KIDNEY DISEASE, STAGE 3 (MODERATE) Status: Acute Comment: Currently at stage IV levels for GFR (9) Physical deconditioning Code(s): R53.81 - OTHER MALAISE Status: Acute (10) Anemia Code(s): D64.9 - ANEMIA, UNSPECIFIED Status: Chronic Comment: drop from last admit likely dilutional due to IV fluids, no evidence acute blood loss or significant hematoma at this time, resuming ASA (11) Severe tricuspid regurgitation Code(s): I07.1 - RHEUMATIC TRICUSPID INSUFFICIENCY Status: Acute (12) Moderate mitral regurgitation Code(s): I34.0 - NONRHEUMATIC MITRAL (VALVE) INSUFFICIENCY Status: Acute - Plan * Recurrent chf with EF 50-55%. * Diastolic dysfunction, Mod MR, Severe TR. * Has bilateral pleural effusions. * Has been diuresing. * Sats are good on room air. Continue to monitor. * If sats stay adequate on RA, would not entertain thoracentesis. If they do not, consult Pulm. * Hx of GIB, so no anticoagulation for afib. * Continue PT. * Palliative Care involved. Several readmissions due to CHF. Daughter is not sure she wants to consider that yet. Looking at some hospice info. * Renal function is stable, but at stage IV levels. Had previously had CKD III.
[2019-05-09] MEDS: Loratadine 10 MG TAB PO SCH (21:36)
[2019-05-10 06:03] LABS: BUN (Urea Nitrogen) 35 mg/dL (9.8-20.1); Calc. Creatinine Clearance 23 mL/min (70-130); Calcium 8.8 mg/dL (7.8-10.44); Estimated GFR-MDRD 33; Glucose 84 mg/dL (83-110)
[2019-05-10] MEDS: Levothyroxine Sodium 75 MCG TAB PO SCH (06:06)
[2019-05-10] MEDS: Furosemide 40 MG/4 ML VIAL SLOW IVP SCH ×2 (06:06→14:46)
[2019-05-10 06:11] LABS: Anion Gap 13 mmol/L (10-20); Carbon Dioxide 36 mmol/L (23-31); Chloride 95 mmol/L (98-107); Potassium 3.7 mmol/L (3.5-5.1); Sodium 140 mmol/L (136-145)
--- NOTE | 2019-05-10 08:16 | PDOC.PN ---
- Subjective Encounter Start Date: 05/10/19 Encounter Start Time: 08:14 Subjective: alert, no sob, chest pain - Objective Resuscitation Status - Order Detail: 05/05/19 23:19 Resuscitation Status Routine Resuscitation Status: DNAR: NO Resuscitation Discussed with: Confirmed with patient MAR Reviewed: Yes Vital Signs & Weight: Vital Signs (12 hours) Temp Pulse Resp BP Pulse Ox 05/10/19 03:49 97.7 F 85 18 138/79 95 Weight Admit Weight 124 lb 14.4 oz Weight 122 lb 5 oz I&O: 05/09/19 05/10/19 05/11/19 06:59 06:59 06:59 Intake Total 970 624 Output Total 650 1775 Balance 320 -1151 Result Diagrams: 05/09/19 06:02 05/10/19 05:06 Phys Exam - Physical Examination Neck: no JVD basilar rales Cardiovascular: no significant murmur, irregular Gastrointestinal: soft, positive bowel sounds Musculoskeletal: no edema Dx/Plan (1) Acute worsening of stage 3 chronic kidney disease Code(s): N18.3 - CHRONIC KIDNEY DISEASE, STAGE 3 (MODERATE) Status: Acute Comment: Currently at stage IV levels for GFR (2) Moderate mitral regurgitation Code(s): I34.0 - NONRHEUMATIC MITRAL (VALVE) INSUFFICIENCY Status: Acute (3) Pleural effusion Code(s): J90 - PLEURAL EFFUSION, NOT ELSEWHERE CLASSIFIED Status: Acute Comment: Slowly progressive. Likely secondary to CHF. (4) Severe tricuspid regurgitation Code(s): I07.1 - RHEUMATIC TRICUSPID INSUFFICIENCY Status: Acute (5) Acute metabolic encephalopathy Code(s): G93.41 - METABOLIC ENCEPHALOPATHY Status: Acute Comment: Likely secondary to hospitalization, infection. Improving. (6) Acute on chronic renal failure Code(s): N17.9 - ACUTE KIDNEY FAILURE, UNSPECIFIED; N18.9 - CHRONIC KIDNEY DISEASE, UNSPECIFIED Status: Acute Comment: creatinine now down significantly, stopped IV fluids, resumed diuretics (7) Atrial fibrillation Code(s): I48.91 - UNSPECIFIED ATRIAL FIBRILLATION Status: Chronic Qualifiers: Atrial fibrillation type: chronic Qualified Code(s): I48.2 - Chronic atrial fibrillation (8) HTN (hypertension) Code(s): I10 - ESSENTIAL (PRIMARY) HYPERTENSION Status: Chronic Comment: (9) Hypothyroidism Code(s): E03.9 - HYPOTHYROIDISM, UNSPECIFIED Status: Chronic Comment: - Plan CXR to evaluate pleural effusions -: cont iv lasix, metoprolol -: no CARLOS/ARB - renal disease * .
--- NOTE | 2019-05-10 09:14 | RAD ---
2 views of the chest: 05/10/2019 COMPARISON: 05/09/2019 and 02/17/2019 HISTORY: Pleural effusion FINDINGS: As seen on the 05/09/2019 examination, moderate/large sized bilateral pleural effusions are noted with opacification of the inferior half of bilateral hemithoraces. There is associated consolidation/collapse of bilateral lower lobes and right middle lobe. No pneumothorax. IMPRESSION: Moderate/large bilateral pleural effusions with dense opacity of the bilateral lower lobe s and right middle lobe.
[2019-05-10] MEDS: Famotidine 20 MG TAB PO SCH (11:59)
[2019-05-10] MEDS: Aspirin 81 mg Enteric Coated Tablet PO SCH (11:59)
[2019-05-10] MEDS: Potassium Chloride 10 MEQ TAB PO SCH (12:00)
[2019-05-10] MEDS: Metoprolol Tartrate 100 MG TAB PO SCH ×2 (12:00→20:53)
--- NOTE | 2019-05-10 14:04 | PDOC.EVN ---
Event Note - Event Note Event Note: pleural effusion unchanged.consider pulmonology consult
[2019-05-10 16:25] LABS: Body Fluid Source Thoracentesis Fluid
--- NOTE | 2019-05-10 16:25 | CON ---
DATE OF CONSULTATION: HISTORY OF PRESENT ILLNESS: The patient is an 89-year-old elderly female, who has been here numerous times in the hospital, presented with not feeling well and shortness of breath. She was found to have diastolic dysfunction with very large pleural effusion. I was consulted regarding a thoracentesis diagnostic and therapeutic. PAST MEDICAL HISTORY: Extensive history is well outlined, pertinent for longstanding history of diastolic dysfunction, advanced age, hypothyroidism, hypertension, renal failure. She was just recently discharged from the hospital. The patient with diagnosis of presumed recent pneumonia, parapneumonic effusion, though I do not see anybody ever doing a thoracentesis on her. PAST SURGICAL HISTORY: 1. Hysterectomy. 2. Some kind of varicose vein surgery. MEDICATIONS: List of medicine from home includes; 1. Bicarb. 2. Ranitidine. 3. Metoprolol. 4. Lopressor 100 twice a day. 5. Claritin. 6. Melatonin. 7. Synthroid 75. 8. Neb treatment. 9. Lasix 40. 10. Estrogen. 11. Aspirin. 12. Vitamin. ALLERGIES: NONE. SOCIAL HISTORY: Tobacco, none. Alcohol, none. REVIEW OF SYSTEMS: Negative. PHYSICAL EXAMINATION: VITAL SIGNS: Sats are 98% on room air, respiratory rate 18, temperature 97, pulse 93, blood pressure 120/71. CHEST: Decreased breath sounds bilaterally. Right, 2/3 of the chest. Left, 1/3 of the chest. No wheezing. No crackles. CARDIAC: Normal S1, S2. No gallops. ABDOMEN: No masses. DIAGNOSTIC STUDIES: X-ray, large pleural effusion. LABORATORY DATA: Creatinine 1.49. Platelet count is normal. H and H unremarkable. IMPRESSION: 1. Advanced age. 2. Bilateral pleural effusion, found to be secondary to diastolic dysfunction. 3. Chronic renal failure. 4. Hypothyroidism. PLAN: Diagnostic therapeutic thoracentesis will be performed. Further recommendation as above. More than likely it appears cardiac in origin considering the large bilateral pleural effusion. TIME SPENT: This is a consultation note, 70 minutes, 50% in direct patient care, exclusive of the thoracentesis. Job ID: [id number]
[2019-05-10 16:26] LABS: BF Color Yellow; BF RBC Count - Manual 123 /cumm; BF WBC/Nonhematics Ct. - Manua 610 /cumm; Clarity Hazy (Clear); Tube # 2
[2019-05-10 16:31] LABS: Pleural Fluid, Protein 3.2 g/dL
[2019-05-10 16:44] LABS: BF Segmented Neutrophils 24 %; Cell Count Non Hematic 73 %; Lymphocytes 3 %
--- NOTE | 2019-05-10 17:02 | RAD ---
CHEST ONE VIEW: HISTORY: Pleural effusions. COMPARISON: Radiograph from the same day. FINDINGS: The right pleural effusion has decreased in size. No pneumothorax. Larger layering left pleural eff usion is similar. Compressive atelectasis in both lower lobes. Heart size is enlarged. IMPRESSION: 1. Size decrease in right layering pleural effusion without pneumothorax. 2. Continued large left layering pleural effusion. POS: CET
[2019-05-10] MEDS: Loratadine 10 MG TAB PO SCH (20:53)
[2019-05-11] MEDS: Furosemide 40 MG/4 ML VIAL SLOW IVP SCH ×2 (05:12→13:26)
[2019-05-11] MEDS: Levothyroxine Sodium 75 MCG TAB PO SCH (05:12)
--- NOTE | 2019-05-11 07:52 | OP ---
DATE OF PROCEDURE: 05/10/2019 PROCEDURE: Thoracentesis. INDICATION: Pleural effusion bilaterally, right greater than left. DESCRIPTION OF PROCEDURE: After informed consent, the left posterior thorax was cleaned with Betadine and chlorhexidine. 1% lidocaine was infiltrated in the ninth intercostal space all the way to the pleura, and the pleural cavity was entered in and 20 mL of slightly pale yellow fluid was removed. Thereafter using an 8-Vincentian catheter, a total of 1000 mL of fluid was removed appeared to be slightly turbid yellow without any difficulty. The patient tolerated the procedure well. Pleural effusion was sent for appropriate studies including cytology and culture. Job ID: [id number]
[2019-05-11] MEDS: Aspirin 81 mg Enteric Coated Tablet PO SCH (08:23)
[2019-05-11] MEDS: Metoprolol Tartrate 100 MG TAB PO SCH ×2 (08:23→20:25)
[2019-05-11] MEDS: Famotidine 20 MG TAB PO SCH (08:23)
[2019-05-11] MEDS: Potassium Chloride 10 MEQ TAB PO SCH (08:24)
--- NOTE | 2019-05-11 08:25 | PDOC.PN ---
- Subjective Encounter Start Date: 05/11/19 Encounter Start Time: 08:23 Subjective: pleasantly confused - Objective Resuscitation Status - Order Detail: 05/05/19 23:19 Resuscitation Status Routine Resuscitation Status: DNAR: NO Resuscitation Discussed with: Confirmed with patient MAR Reviewed: Yes Vital Signs & Weight: Vital Signs (12 hours) Temp Pulse Resp BP Pulse Ox 05/11/19 07:21 97.9 F 99 13 108/61 94 L 05/11/19 04:00 97.6 F 95 16 123/70 95 Weight Admit Weight 124 lb 14.4 oz Weight 119 lb 3 oz I&O: 05/10/19 05/11/19 05/12/19 06:59 06:59 06:59 Intake Total 624 420 Output Total 1775 1800 Balance -1151 -1380 Result Diagrams: 05/09/19 06:02 05/10/19 05:06 Radiology Reviewed by me: Yes (cxr- post thoracentesis. R chest clear, large L effusion) Phys Exam - Physical Examination Neck: no JVD clear on R, dull to midscapula on L Cardiovascular: RRR 4/6 sys murmur Gastrointestinal: soft, positive bowel sounds Musculoskeletal: no edema Dx/Plan (1) Acute on chronic diastolic (congestive) heart failure Code(s): I50.33 - ACUTE ON CHRONIC DIASTOLIC (CONGESTIVE) HEART FAILURE Status : Acute (2) Acute worsening of stage 3 chronic kidney disease Code(s): N18.3 - CHRONIC KIDNEY DISEASE, STAGE 3 (MODERATE) Status: Acute Comment: Currently at stage IV levels for GFR (3) Moderate mitral regurgitation Code(s): I34.0 - NONRHEUMATIC MITRAL (VALVE) INSUFFICIENCY Status: Acute (4) Pleural effusion Code(s): J90 - PLEURAL EFFUSION, NOT ELSEWHERE CLASSIFIED Status: Acute Comment: Slowly progressive. Likely secondary to CHF. (5) Severe tricuspid regurgitation Code(s): I07.1 - RHEUMATIC TRICUSPID INSUFFICIENCY Status: Acute (6) Acute metabolic encephalopathy Code(s): G93.41 - METABOLIC ENCEPHALOPATHY Status: Acute Comment: Likely secondary to hospitalization, infection. Improving. (7) Acute on chronic renal failure Code(s): N17.9 - ACUTE KIDNEY FAILURE, UNSPECIFIED; N18.9 - CHRONIC KIDNEY DISEASE, UNSPECIFIED Status: Acute Comment: creatinine now down significantly, stopped IV fluids, resumed diuretics (8) Atrial fibrillation Code(s): I48.91 - UNSPECIFIED ATRIAL FIBRILLATION Status: Chronic Qualifiers: Atrial fibrillation type: chronic Qualified Code(s): I48.2 - Chronic atrial fibrillation (9) HTN (hypertension) Code(s): I10 - ESSENTIAL (PRIMARY) HYPERTENSION Status: Chronic Comment: (10) Hypothyroidism Code(s): E03.9 - HYPOTHYROIDISM, UNSPECIFIED Status: Chronic Comment: - Plan pleural fluid- transudate -: Dx severe chronic diastolic heart failure refractory to diuresis -: no CARLOS/ ARB secondary to renal failure -: discussed with Cardiolgy * .
--- NOTE | 2019-05-11 09:25 | PRG ---
DATE OF SERVICE: 05/11/2019 SUBJECTIVE: This morning, she is better, less short of breath. OBJECTIVE: VITAL SIGNS: Temperature 97, pulse 72, respiratory rate 13, saturations 90% on room air, and blood pressure 108/61. CHEST: Decreased breath sounds bilaterally without any wheezing. CARDIAC: Normal S1 and S2. No gallops. ABDOMEN: Soft. IMPRESSION AND PLAN: Bilateral pleural effusion status post thoracentesis, large volume, site appears to be a transudate. Pulmonary solo, nothing additional to offer. Diuretics and supportive care. We will follow at a distance. Call if needed. Job ID: [id number] MTDD
[2019-05-11] MEDS: Loratadine 10 MG TAB PO SCH (20:25)
[2019-05-12] MEDS: Levothyroxine Sodium 75 MCG TAB PO SCH (05:13)
[2019-05-12] MEDS: Furosemide 40 MG/4 ML VIAL SLOW IVP SCH ×2 (05:13→15:40)
[2019-05-12] MEDS: Potassium Chloride 10 MEQ TAB PO SCH (08:05)
[2019-05-12] MEDS: Aspirin 81 mg Enteric Coated Tablet PO SCH (08:05)
[2019-05-12] MEDS: Metoprolol Tartrate 100 MG TAB PO SCH ×2 (08:06→20:43)
[2019-05-12] MEDS: Famotidine 20 MG TAB PO SCH (08:06)
--- NOTE | 2019-05-12 08:59 | PDOC.HOSPP ---
- Subjective Subjective: confused , no distress - Objective Vital Signs & Weight: Vital Signs (12 hours) Temp Pulse Resp BP Pulse Ox 05/12/19 07:59 97.9 F 99 18 143/73 H 94 L 05/12/19 04:00 97.4 F L 91 22 H 141/63 H 95 Weight Admit Weight 124 lb 14.4 oz Weight 120 lb 11.2 oz I&O: 05/11/19 05/12/19 05/13/19 06:59 06:59 06:59 Intake Total 420 964 Output Total 1800 1600 Balance -1380 -636 Result Diagrams: 05/09/19 06:02 05/10/19 05:06 ROS - Review of Systems All systems: All other ROS were reviewed and found negative. - Medication Medications: Active Medications Generic Name Dose Route Start Last Admin Trade Name Freq PRN Reason Stop Dose Admin Acetaminophen 1,000 mg 05/05/19 23:29 05/06/19 20:21 Tylenol PO 1,000 mg Q6H PRN Administration Mild Pain (1-3) Aspirin 81 mg 05/06/19 09:00 05/12/19 08:05 Ecotrin PO 81 mg QAM ANTONY Administration Estrogens Conjugated 1.25 mg 05/06/19 09:00 05/12/19 08:06 Premarin PO 1.25 mg QAM ANTONY Administration Famotidine 20 mg 05/06/19 09:00 05/12/19 08:06 Pepcid PO 20 mg DAILY ANTONY Administration Furosemide 40 mg 05/06/19 06:00 05/12/19 05:13 Lasix SLOW IVP 40 mg 0600,1400 ANTONY Administration Levothyroxine Sodium 75 mcg 05/06/19 06:00 05/12/19 05:13 Synthroid PO 75 mcg 0600 ANTONY Administration Loratadine 10 mg 05/06/19 21:00 05/11/19 20:25 Claritin PO 10 mg QPM ANTONY Administration Metoprolol Tartrate 100 mg 05/06/19 09:00 05/12/19 08:06 Lopressor PO 100 mg BID ANTONY Administration Potassium Chloride 10 meq 05/06/19 08:00 05/12/19 08:05 Klor-Con 10 PO 10 meq QAM-WM ANTONY Administration - Exam Neck: no JVD Heart: RRR, murmur present Respiratory: rales Gastrointestinal: soft, normal bowel sounds Extremities: 1+ LE edema Hosp A/P (1) Acute on chronic diastolic (congestive) heart failure Code(s): I50.33 - ACUTE ON CHRONIC DIASTOLIC (CONGESTIVE) HEART FAILURE Status : Acute (2) Acute worsening of stage 3 chronic kidney disease Code(s): N18.3 - CHRONIC KIDNEY DISEASE, STAGE 3 (MODERATE) Status: Acute (3) Moderate mitral regurgitation Code(s): I34.0 - NONRHEUMATIC MITRAL (VALVE) INSUFFICIENCY Status: Acute (4) Pleural effusion Code(s): J90 - PLEURAL EFFUSION, NOT ELSEWHERE CLASSIFIED Status: Acute (5) Severe tricuspid regurgitation Code(s): I07.1 - RHEUMATIC TRICUSPID INSUFFICIENCY Status: Acute (6) Acute metabolic encephalopathy Code(s): G93.41 - METABOLIC ENCEPHALOPATHY Status: Acute (7) Acute on chronic renal failure Code(s): N17.9 - ACUTE KIDNEY FAILURE, UNSPECIFIED; N18.9 - CHRONIC KIDNEY DISEASE, UNSPECIFIED Status: Acute (8) Atrial fibrillation Code(s): I48.91 - UNSPECIFIED ATRIAL FIBRILLATION Status: Chronic Qualifiers: Atrial fibrillation type: chronic Qualified Code(s): I48.2 - Chronic atrial fibrillation (9) HTN (hypertension) Code(s): I10 - ESSENTIAL (PRIMARY) HYPERTENSION Status: Chronic Qualifiers: Hypertension type: essential hypertension Qualified Code(s): I10 - Essential (primary) hypertension (10) Hypothyroidism Code(s): E03.9 - HYPOTHYROIDISM, UNSPECIFIED Status: Chronic - Plan post thoracentesis, still has effusion, rales LLL. cont iv lasix, etc. daughter coming in today for face to face conversation
[2019-05-12 15:23] VITALS: BMI 23.6
[2019-05-12] MEDS: Loratadine 10 MG TAB PO SCH (20:42)
[2019-05-13] MEDS: Levothyroxine Sodium 75 MCG TAB PO SCH (05:44)
[2019-05-13] MEDS: Furosemide 40 MG/4 ML VIAL SLOW IVP SCH ×2 (05:44→15:16)
[2019-05-13] MEDS: Aspirin 81 mg Enteric Coated Tablet PO SCH (08:26)
[2019-05-13] MEDS: Potassium Chloride 10 MEQ TAB PO SCH (08:26)
[2019-05-13] MEDS: Metoprolol Tartrate 100 MG TAB PO SCH ×2 (08:27→21:23)
[2019-05-13] MEDS: Famotidine 20 MG TAB PO SCH (08:27)
--- NOTE | 2019-05-13 18:09 | PDOC.HOSPP ---
- Subjective Subjective: Feels ok. Denies specific problems, but says she really doesn't know how she is doing. Denies SOB - Objective Vital Signs & Weight: Vital Signs (12 hours) Temp Pulse Pulse Pulse Resp BP BP 05/13/19 15:12 98.3 F 97 18 05/13/19 14:42 90 101 H 111/60 98/69 05/13/19 11:49 98.2 F 80 18 05/13/19 07:16 98.1 F 109 H 18 BP Pulse Ox 05/13/19 15:12 105/63 95 05/13/19 14:42 05/13/19 11:49 112/62 97 05/13/19 07:16 107/62 93 L Weight Admit Weight 124 lb 14.4 oz Weight 118 lb 3.2 oz I&O: 05/12/19 05/13/19 05/14/19 06:59 06:59 06:59 Intake Total 964 720 Output Total 1600 1075 Balance -108 -897 Result Diagrams: 05/09/19 06:02 05/10/19 05:06 ROS - Review of Systems All systems: All other ROS were reviewed and found negative. - Medication Medications: Active Medications Generic Name Dose Route Start Last Admin Trade Name Freq PRN Reason Stop Dose Admin Acetaminophen 1,000 mg 05/05/19 23:29 05/06/19 20:21 Tylenol PO 1,000 mg Q6H PRN Administration Mild Pain (1-3) Aspirin 81 mg 05/06/19 09:00 05/13/19 08:26 Ecotrin PO 81 mg QAM ANTONY Administration Estrogens Conjugated 1.25 mg 05/06/19 09:00 05/13/19 08:27 Premarin PO 1.25 mg QAM ANTONY Administration Famotidine 20 mg 05/06/19 09:00 05/13/19 08:27 Pepcid PO 20 mg DAILY ANTONY Administration Furosemide 40 mg 05/06/19 06:00 05/13/19 15:16 Lasix SLOW IVP 40 mg 0600,1400 ANTONY Administration Levothyroxine Sodium 75 mcg 05/06/19 06:00 05/13/19 05:44 Synthroid PO 75 mcg 0600 ANTONY Administration Loratadine 10 mg 05/06/19 21:00 05/12/19 20:42 Claritin PO 10 mg QPM ANTONY Administration Metoprolol Tartrate 100 mg 05/06/19 09:00 05/13/19 08:27 Lopressor PO 100 mg BID ANTONY Administration Potassium Chloride 10 meq 05/06/19 08:00 05/13/19 08:26 Klor-Con 10 PO 10 meq QAM-WM ANTONY Administration - Exam NAD, awake alert Neck: supple, symmetric, no JVD, no Thyromegaly, no lymphadenopathy, no carotid bruit Heart: RRR, murmur present, II/IV Respiratory: no wheezes, no rales, no ronchi Gastrointestinal: soft, non-tender, non-distended, normal bowel sounds, no palpable masses, no hepatomegaly, no splenomegaly, no bruit Extremities: no cyanosis, no clubbing, no edema Musculoskeletal: normal tone Psychiatric: normal affect, normal behavior Hosp A/P (1) CHF (congestive heart failure) Code(s): I50.9 - HEART FAILURE, UNSPECIFIED Status: Chronic Qualifiers: Heart failure type: diastolic Heart failure chronicity: acute Qualified Code(s): I50.31 - Acute diastolic (congestive) heart failure (2) Acute respiratory failure with hypoxia Code(s): J96.01 - ACUTE RESPIRATORY FAILURE WITH HYPOXIA Status: Acute (3) Pleural effusion Code(s): J90 - PLEURAL EFFUSION, NOT ELSEWHERE CLASSIFIED Status: Acute (4) Atrial fibrillation Code(s): I48.91 - UNSPECIFIED ATRIAL FIBRILLATION Status: Chronic Qualifiers: Atrial fibrillation type: chronic Qualified Code(s): I48.2 - Chronic atrial fibrillation (5) Compression fracture of L1 lumbar vertebra Code(s): S32.010A - WEDGE COMPRESSION FRACTURE OF FIRST LUMBAR VERTEBRA, INIT Status: Chronic (6) HTN (hypertension) Code(s): I10 - ESSENTIAL (PRIMARY) HYPERTENSION Status: Chronic Qualifiers: Hypertension type: essential hypertension Qualified Code(s): I10 - Essential (primary) hypertension (7) Hypothyroidism Code(s): E03.9 - HYPOTHYROIDISM, UNSPECIFIED Status: Chronic (8) Acute worsening of stage 3 chronic kidney disease Code(s): N18.3 - CHRONIC KIDNEY DISEASE, STAGE 3 (MODERATE) Status: Acute (9) Physical deconditioning Code(s): R53.81 - OTHER MALAISE Status: Acute (10) Anemia Code(s): D64.9 - ANEMIA, UNSPECIFIED Status: Chronic (11) Severe tricuspid regurgitation Code(s): I07.1 - RHEUMATIC TRICUSPID INSUFFICIENCY Status: Acute (12) Moderate mitral regurgitation Code(s): I34.0 - NONRHEUMATIC MITRAL (VALVE) INSUFFICIENCY Status: Acute - Plan Doing fairly well s/p thoracentesis. Can change to oral Lasix. Medically, she is maximized on therapy for now. Sats are good on RA. Can likely DC soon. Palliative care team working with the patient's daughter.
[2019-05-13] MEDS: Loratadine 10 MG TAB PO SCH (21:23)
--- NOTE | 2019-05-14 00:24 | PRG ---
DATE OF SERVICE: 05/13/2019 Had a 40-minute conversation with the patient's daughter and that regarding the patient's current situation including her diagnoses, treatment plan and prognosis. We had a discussion regarding the patient's advanced care planning. Ultimately, I explained that we maximize medical therapy for Ms. Willis. In spite of that, she has returned at least a couple of times with recurrent congestive heart failure, primarily due to diastolic dysfunction. She required thoracentesis during this hospitalization and currently, she is having reasonably good oxygen saturations on room air. I believe we are at a point where we can transition her back to oral therapy and consider discharge soon. Specifically, we will stop the IV Lasix and convert that over to p.o. Lasix. We had a discussion regarding the discharge plan. At this point, she intends to consider her mother going [facility] at home. However, her plan would be to bring the patient back to the hospital should her condition worsen. I explained that we want to accommodate whatever her and her mother's wishes are, however, that is a bit different than the typical hospice philosophy approach, but she feels that is appropriate and the home health accompanying is comfortable with that plan. We also explained that her mother likely would have recurrences of pulmonary edema and possibly pleural effusions in the future. There will be a window of time when the effusions are problematic, but possibly not large enough to comfortably perform thoracentesis and that will be the challenging times for her mother. She made it clear that she is concerned that we treat her mother as we would any other patient regardless of her age. She has been researching the situation and would like to consider a PleurX catheter and left ventricular assist device for her mother. I explained that the PleurX catheter here typically was used for rapidly recurring effusions, which almost always occur in patients with malignancy. We would not want to consider that at this time because of the risk associated with them and without knowing how rapidly the effusion might reaccumulate. I also explained that the left ventricular assist device is typically used in situations, where there is a cardiomyopathy other than diastolic dysfunction. However, I am not familiar with the specific citation that she is referencing and referred her to Cardiology if she wanted to explore that option further. I have personally never seen it used in a situation like this nor do I believe Cardiology would consider that a viable option. However, again that conversation was deferred. Ultimately, we will stop the IV Lasix and change her to p.o. with the anticipation that she can likely discharge over the weekend with [facility]. All of her questions were answered to her satisfaction. Job ID: [id number]
[2019-05-14] MEDS: Furosemide 40 MG/4 ML VIAL SLOW IVP SCH ×2 (05:25→14:33)
[2019-05-14] MEDS: Levothyroxine Sodium 75 MCG TAB PO SCH (05:25)
[2019-05-14] MEDS: Potassium Chloride 10 MEQ TAB PO SCH (08:28)
[2019-05-14] MEDS: Metoprolol Tartrate 100 MG TAB PO SCH ×2 (08:28→20:56)
[2019-05-14] MEDS: Aspirin 81 mg Enteric Coated Tablet PO SCH (08:28)
[2019-05-14] MEDS: Famotidine 20 MG TAB PO SCH (08:30)
[2019-05-14 10:29] LABS: Anion Gap 11 mmol/L (10-20); BUN (Urea Nitrogen) 46 mg/dL (9.8-20.1); Calc. Creatinine Clearance 15 mL/min (70-130); Calcium 9.1 mg/dL (7.8-10.44); Carbon Dioxide 34 mmol/L (23-31); Chloride 94 mmol/L (98-107); Estimated GFR-MDRD 22; Glucose 101 mg/dL (83-110); Potassium 3.5 mmol/L (3.5-5.1); Sodium 135 mmol/L (136-145)
--- NOTE | 2019-05-14 15:08 | PDOC.HOSPP ---
- Subjective Subjective: 89 y/o female with CHF admitted with worsening SOB. Found to have CHF exacerbation as well as pleural effusion. S/p R thoracentesis. feeling better and off oxygen - Objective Vital Signs & Weight: Vital Signs (12 hours) Temp Pulse Resp BP Pulse Ox 05/14/19 14:40 91/53 L 05/14/19 13:28 86 111/60 05/14/19 08:28 90 L 05/14/19 07:23 97.7 F 100 24 H 124/66 90 L 05/14/19 03:35 99 F 94 20 103/59 L 93 L Weight Admit Weight 124 lb 14.4 oz Weight 117 lb 9.6 oz I&O: 05/13/19 05/14/19 05/15/19 06:59 06:59 06:59 Intake Total 720 130 Output Total 1075 300 Balance -355 -170 Result Diagrams: 05/09/19 06:02 05/14/19 10:02 ROS - Review of Systems All systems: All other ROS were reviewed and found negative. - Medication Medications: Active Medications Generic Name Dose Route Start Last Admin Trade Name Freq PRN Reason Stop Dose Admin Acetaminophen 1,000 mg 05/05/19 23:29 05/06/19 20:21 Tylenol PO 1,000 mg Q6H PRN Administration Mild Pain (1-3) Aspirin 81 mg 05/06/19 09:00 05/14/19 08:28 Ecotrin PO 81 mg QAM ANTONY Administration Estrogens Conjugated 1.25 mg 05/06/19 09:00 05/14/19 08:30 Premarin PO 1.25 mg QAM ANTONY Administration Famotidine 20 mg 05/06/19 09:00 05/14/19 08:30 Pepcid PO 20 mg DAILY ANTONY Administration Levothyroxine Sodium 75 mcg 05/06/19 06:00 05/14/19 05:25 Synthroid PO 75 mcg 0600 ANTONY Administration Loratadine 10 mg 05/06/19 21:00 05/13/19 21:23 Claritin PO 10 mg QPM ANTONY Administration Metoprolol Tartrate 100 mg 05/06/19 09:00 05/14/19 08:28 Lopressor PO 100 mg BID ANTONY Administration Potassium Chloride 10 meq 05/06/19 08:00 05/14/19 08:28 Klor-Con 10 PO 10 meq QAM-WM ANTONY Administration - Exam NAD, awake alert Eye: PERRL ENT: normocephalic atraumatic Neck: supple, symmetric Heart: RRR Respiratory: CTAB, no rales, no ronchi (decreased air entry at the bases. No respiratory distress.) Gastrointestinal: soft, non-tender, non-distended, normal bowel sounds Extremities: no cyanosis, no clubbing, no edema Neurological: CN's grossly intact, normal sensation to touch (Moving all limbs.) Hosp A/P (1) Atrial fibrillation Code(s): I48.91 - UNSPECIFIED ATRIAL FIBRILLATION Status: Acute (2) Acute on chronic diastolic (congestive) heart failure Code(s): I50.33 - ACUTE ON CHRONIC DIASTOLIC (CONGESTIVE) HEART FAILURE Status : Acute (3) Acute worsening of stage 3 chronic kidney disease Code(s): N18.3 - CHRONIC KIDNEY DISEASE, STAGE 3 (MODERATE) Status: Acute (4) Physical deconditioning Code(s): R53.81 - OTHER MALAISE Status: Acute (5) Pleural effusion Code(s): J90 - PLEURAL EFFUSION, NOT ELSEWHERE CLASSIFIED Status: Acute (6) Acute respiratory failure with hypoxia Code(s): J96.01 - ACUTE RESPIRATORY FAILURE WITH HYPOXIA Status: Acute (7) HTN (hypertension) Code(s): I10 - ESSENTIAL (PRIMARY) HYPERTENSION Status: Chronic Qualifiers: Hypertension type: essential hypertension Qualified Code(s): I10 - Essential (primary) hypertension (8) Hypothyroidism Code(s): E03.9 - HYPOTHYROIDISM, UNSPECIFIED Status: Chronic - Plan Hold diuretic due to increasing Creat. Re evaluate in the am. Continue other medications. Appreciate Palliative care input. Home with hospice is contemplated.
[2019-05-14] MEDS: Loratadine 10 MG TAB PO SCH (20:55)
[2019-05-15] MEDS: Levothyroxine Sodium 75 MCG TAB PO SCH (05:40)
[2019-05-15] MEDS: Aspirin 81 mg Enteric Coated Tablet PO SCH (09:02)
[2019-05-15] MEDS: Metoprolol Tartrate 100 MG TAB PO SCH (09:02)
[2019-05-15] MEDS: Potassium Chloride 10 MEQ TAB PO SCH (09:02)
[2019-05-15] MEDS: Famotidine 20 MG TAB PO SCH (09:02)
--- NOTE | 2019-05-15 14:09 | PDOC.HOSPP ---
- Subjective Subjective: Ms. Willis was seen today in follow-up. She says she feels the same. She does not have any complaints. - Objective Vital Signs & Weight: Vital Signs (12 hours) Temp Pulse Resp BP Pulse Ox 05/15/19 12:29 98.0 F 91 24 H 116/60 95 05/15/19 09:41 95 05/15/19 08:00 97.5 F L 88 24 H 104/56 L 95 05/15/19 03:00 98.9 F 86 24 H 97/53 L 93 L Weight Admit Weight 124 lb 14.4 oz Weight 117 lb 14.4 oz I&O: 05/14/19 05/15/19 05/16/19 06:59 06:59 06:59 Intake Total 130 644 Output Total 300 525 Balance -170 119 Result Diagrams: 05/09/19 06:02 05/14/19 10:02 ROS - Review of Systems All systems: All other ROS were reviewed and found negative. - Medication Medications: Active Medications Generic Name Dose Route Start Last Admin Trade Name Freq PRN Reason Stop Dose Admin Acetaminophen 1,000 mg 05/05/19 23:29 05/06/19 20:21 Tylenol PO 1,000 mg Q6H PRN Administration Mild Pain (1-3) Aspirin 81 mg 05/06/19 09:00 05/15/19 09:02 Ecotrin PO 81 mg QAM ANTONY Administration Estrogens Conjugated 1.25 mg 05/06/19 09:00 05/15/19 09:41 Premarin PO 1.25 mg QAM ANTONY Administration Famotidine 20 mg 05/06/19 09:00 05/15/19 09:02 Pepcid PO 20 mg DAILY ANTONY Administration Levothyroxine Sodium 75 mcg 05/06/19 06:00 05/15/19 05:40 Synthroid PO 75 mcg 0600 ANTONY Administration Loratadine 10 mg 05/06/19 21:00 05/14/19 20:55 Claritin PO 10 mg QPM ANTONY Administration Metoprolol Tartrate 100 mg 05/06/19 09:00 05/15/19 09:02 Lopressor PO 100 mg BID ANTONY Administration Potassium Chloride 10 meq 05/06/19 08:00 05/15/19 09:02 Klor-Con 10 PO 10 meq QAM-WM ANTONY Administration - Exam Eye: PERRL, anicteric sclera, scleral icterus Heart: RRR, no murmur, no gallops, no rubs Respiratory: CTAB (with decreased breath sounds at the bases), no rales, no ronchi Gastrointestinal: soft, non-tender, non-distended, normal bowel sounds, no palpable masses Extremities: 1+ LE edema Hosp A/P (1) Acute on chronic diastolic (congestive) heart failure Code(s): I50.33 - ACUTE ON CHRONIC DIASTOLIC (CONGESTIVE) HEART FAILURE Status : Acute (2) Atrial fibrillation Code(s): I48.91 - UNSPECIFIED ATRIAL FIBRILLATION Status: Acute (3) Moderate mitral regurgitation Code(s): I34.0 - NONRHEUMATIC MITRAL (VALVE) INSUFFICIENCY Status: Acute (4) Physical deconditioning Code(s): R53.81 - OTHER MALAISE Status: Acute (5) Acute worsening of stage 3 chronic kidney disease Code(s): N18.3 - CHRONIC KIDNEY DISEASE, STAGE 3 (MODERATE) Status: Acute - Plan * Acute on chronic diastolic heart failure- she is better compensated * She would like to be discharged as she feels she is just laying around doing nothing * Home Hospice arrangements are being made * Stable for discharge once arranged
[2019-05-15 16:49] VITALS: BP 125/73; TEMP 99
--- NOTE | 2019-05-15 20:06 | DIS ---
DATE OF ADMISSION: 05/06/2019 DATE OF DISCHARGE: 05/15/2019 PRIMARY CARE PHYSICIAN: Dr. Maikol Morrissey. DISCHARGE DISPOSITION: Home with home hospice. DISCHARGE DIAGNOSES: 1. Acute on chronic diastolic heart failure. 2. Acute hypoxic respiratory failure due to #1. 3. Chronic atrial fibrillation. 4. History of gastrointestinal bleed. 5. Deconditioning. 6. Chronic kidney disease, stage 4. DISCHARGE MEDICATIONS: Include; 1. Lasix 40 mg daily. 2. Sodium bicarbonate 325 mg twice daily. 3. Lopressor 100 mg twice a day. 4. Ranitidine 150 mg twice daily. 5. Potassium chloride 10 mEq extended release daily. 6. Melatonin 3 mg as needed. 7. Claritin 10 mg q.p.m. 8. Levothyroxine 75 mcg p.o. daily. 9. Conjugated estrogens 1.25 mg daily. 10. Aspirin 81 mg daily. 11. Ocular two capsules daily. PROCEDURES DONE DURING THE ADMISSION: She had a thoracentesis with removal of approximately 1 L of transudative fluid. CODE STATUS: DNAR. ALLERGIES: NO KNOWN DRUG ALLERGIES. HOSPITAL COURSE: Ms. Willis is a pleasant 89-year-old female, who was admitted to the hospital with acute on chronic diastolic heart failure. She was volume overloaded and was also found to have a fairly large pleural effusion. This had not responded to Lasix. For this reason, Pulmonology was consulted and she underwent thoracentesis. The fluid was determined to be transudative and thought to be related to the acute on chronic diastolic heart failure. She continued with IV diuresis during her hospital stay and slowly improved. However, due to her advanced age and general frail status and multiple medical chronic conditions, she was seen by the Palliative Care Team and the patient made the decision to go home with home hospice. Job ID: [id number]
== END 2019-05-15 16:54 | disposition hospice, home (50) | DRG 291 ==
LOC: ERS 14:21 → ERHOLD 17:45 → 2SW 20:18 → OBSVTOIN 05-06 13:12 → 2NO 05-06 17:23
PROVIDERS: ADMIT Internal Medicine; ATTEND Internal Medicine
PROC: 0W993ZZ Drainage of Right Pleural Cavity, Percutaneous Approach (ICD-10-PCS; principal; 2019-05-10)
DX: I13.0 Hypertensive heart and chronic kidney disease with heart failure and stage 1 through stage 4 chronic kidney disease, or unspecified chronic kidney disease (principal); I50.33 Acute on chronic diastolic (congestive) heart failure; J96.01 Acute respiratory failure with hypoxia; G93.41 Metabolic encephalopathy; N18.4 Chronic kidney disease, stage 4 (severe); N17.9 Acute kidney failure, unspecified; J91.8 Pleural effusion in other conditions classified elsewhere; Z66 Do not resuscitate; Z51.5 Encounter for palliative care; I48.2 Chronic atrial fibrillation; D63.1 Anemia in chronic kidney disease; E03.9 Hypothyroidism, unspecified; I08.1 Rheumatic disorders of both mitral and tricuspid valves; X58.XXXD Exposure to other specified factors, subsequent encounter; Z87.01 Personal history of pneumonia (recurrent); Z90.710 Acquired absence of both cervix and uterus; Z79.82 Long term (current) use of aspirin; Z79.899 Other long term (current) drug therapy; Z91.81 History of falling; S32.010D Wedge compression fracture of first lumbar vertebra, subsequent encounter for fracture with routine healing; Z87.19 Personal history of other diseases of the digestive system
CPT/HCPCS: 36415; 71045; 71046; 80048; 80053; 82150; 82728; 82945; 83540; 83550; 83605; 83615; 83690; 83735; 83880; 83986; 84157; 84478; 84484; 85007; 85025; 85027; 85060; 87070; 87116; 87205; 87206; 88112; 88305; 89051; 93005; 96374; J1642; J1940